=== PATIENT | male | born 1960 | race Caucasian/White ===

== ENCOUNTER 2020-04-08 10:49 | Emergency (ER) | payer OTHER, SELFPAY ==
--- NOTE | ~2020-04-08 | XR_ITS ---
XR lumbar spine min 4V 04/08/2020 11:29 Indication: Low back pain and numbness Procedure: 5 views of the lumbar spine Comparison: CT dated 01/09/2017 Findings: There is partial sacralization of L5. There is facet hypertrophy at L4-5 and L5-S1. There a re no acute fractures or traumatic malalignment. Pedicles intact. There are coils overlying the abdom en, likely from previous ventral hernia repair. Laparoscopic adjustable gastric band partially visual ized. Impression: 1: No acute abnormality of the lumbar spine. Reviewed, dictated and finalized at location A. 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
[2020-04-08 11:00] VITALS: BP 140/87; PULSE 75; RESP 20; TEMP 35.8; O2SAT 97
--- NOTE | 2020-04-08 11:00 | ED.BACK ---
HPI - Back Pain/Injury General Chief Complaint: Back Pain/Injury Stated Complaint: pain in right buttock Time Seen by Provider: 04/08/20 11:00 Source: patient and RN notes reviewed Mode of arrival: ambulatory Limitations: no limitations History of Present Illness HPI Narrative: 60 year old male who presents to [facility] care with complaints of pain to the right lower back radiating into his right thigh and down leg to ankle since the 08 of February. Patient states that on the weekend before then he put up [place] lights but symptoms did not start until 08 of February. He reports that he has had previous back problems and sciatica but was always on the left side never on his right. Patient states that he does have some numbness in his feet but that is related to his diabetic neuropathy,denies any saddle paraesthesia, no difficulty with bowels or bladder function. Patient states that pain is constant achy and at times is sharp, was diagnosed with degenerative arthritis in his back in 1991. Patient states that he takes Tramadol for his discomfort but that the medication is not cutting the pain. MD elicited complaint: back pain Pertinent past history: prior back pain, arthritis and other (DDD) Timing: constant Severity: severe Pain scale (0-10): 7 Similar Symptoms Previously: Yes Quality: sharp and aching Location: right lower back Radiation: right upper leg and right leg below the knee (to ankle) Exacerbating factors: movement Relieving factors: none Treatments prior to arrival: other (tramadol) Work related injury: No Related Data Home Medications Medication Instructions Recorded Confirmed aspirin 81 mg DAILY 04/08/20 04/08/20 chlorthalidone 25 mg DAILY 04/08/20 04/08/20 dulaglutide [Trulicity] mg SUBCUT 04/08/20 empagliflozin [Jardiance] 25 mg DAILY 04/08/20 04/08/20 lisinopril 40 mg DAILY 04/08/20 04/08/20 metformin 1,000 mg DAILY 04/08/20 04/08/20 omega-3 acid ethyl esters PO 04/08/20 omeprazole 04/08/20 simvastatin 40 mg DAILY 04/08/20 04/08/20 tramadol mg 04/08/20 Allergies Allergy/AdvReac Type Severity Reaction Status Date / Time No Known Allergies Allergy Unknown Verified 03/04/18 11:27 Review of Systems Review of Systems: Narrative: CONSTITUTIONAL: Denies fever, chills, or sweats. EYES: Denies visual changes, redness, or discharge. ENT: Denies rhinorrhea, congestion, sore throat, or otalgia. CARDIOVASCULAR: Denies chest pain, palpitations, or edema. RESPIRATORY: Denies cough or dyspnea. GASTROINTESTINAL: Denies abdominal pain, nausea, vomiting, or diarrhea. GENITOURINARY: Denies dysuria or hematuria. SKIN: Denies rash or itching. MUSCULOSKELETAL:Positive for right lower back pain which radiates down thigh into calf and to ankle,no other joint pain, or myalgia. NEUROLOGIC: Denies headache, diabetic neuropathy to feet with numbness, denies acute weakness PSYCHIATRIC: Denies anxiety or depression. All systems reviewed & are unremarkable except as noted in HPI and below PMFSH Past Medical History Medical History (Updated 04/08/20 @ 14:48 by Jeanette Martin NP) Diabetes mellitus type 2 in obese GERD (gastroesophageal reflux disease) History of sinus problem Hypertension Shingles Sleep apnea in adult wears cpap Surgical History Surgical History (Updated 04/08/20 @ 14:47 by Jeanette Martin NP) H/O oral surgery H/O umbilical hernia repair History of cholecystectomy History of sinus surgery History of weight loss surgery Lap band 2009 Family History Family History (Updated 04/08/20 @ 11:20 by Jeanette Martin NP) Father Heart disease Grandparent Heart disease Social History Social History (Updated 04/08/20 @ 11:21 by Jeanette Martin NP) Smoking status: Former smoker Smoking end date: 03/30/88 Alcohol intake: current Alcohol use details: seldom Substance use: never Living arrangements: with family Gender identity (if verbalized by the patient): Male Commen
== END 2020-04-08 12:00 | disposition home or self-care (01) ==
PROVIDERS: Emergency Provider Registered Nurse
DX: M54.16 Radiculopathy, lumbar region (principal); E11.9 Type 2 diabetes mellitus without complications; K21.9 Gastro-esophageal reflux disease without esophagitis; I10 Essential (primary) hypertension; G47.30 Sleep apnea, unspecified; Z87.891 Personal history of nicotine dependence
CPT/HCPCS: 72110; 99213; G0463

== ENCOUNTER 2020-04-17 11:06 | Emergency (ER) | payer OTHER, SELFPAY ==
[2020-04-17 11:21] VITALS: BP 137/85; PULSE 94; RESP 16; TEMP 36; O2SAT 96
--- NOTE | 2020-04-17 18:08 | ED.GENADULT ---
HPI - General Adult General Chief complaint: Back Pain/Injury Stated complaint: right hip pain Time Seen by Provider: 04/17/20 11:23 Source: patient Mode of arrival: ambulatory Limitations: no limitations History of Present Illness HPI narrative: Patient presents with chief complaint of low back pain that radiates down into his right buttock and at times radiates down his entire right leg. Patient states beginning approximately 10 days ago it became more intense. Patient states that he was seen at the urgent care where x-rays were performed and found to be negative. Patient states he was diagnosed with sciatica and prescribed cyclobenzaprine and [place]. Patient states that he has been taking the cyclobenzaprine and ibuprofen and of the [place] if needed. He states however that they have only minimally improved his discomfort and at times do not help. Patient states that he has diabetes however he keeps his blood sugars between 113 and 130. He denies any fever, chills, nausea, vomiting, trauma to his back, loss of sensation or motor function to his lower extremities. Patient states that he has an appointment with his primary care on Thursday. Related Data Home Medications Medication Instructions Recorded Confirmed aspirin 81 mg DAILY 04/08/20 04/08/20 chlorthalidone 25 mg DAILY 04/08/20 04/08/20 dulaglutide [Trulicity] mg SUBCUT 04/08/20 empagliflozin [Jardiance] 25 mg DAILY 04/08/20 04/08/20 lisinopril 40 mg DAILY 04/08/20 04/08/20 metformin 1,000 mg DAILY 04/08/20 04/08/20 omega-3 acid ethyl esters PO 04/08/20 omeprazole 04/08/20 simvastatin 40 mg DAILY 04/08/20 04/08/20 tramadol mg 04/08/20 Allergies Allergy/AdvReac Type Severity Reaction Status Date / Time No Known Allergies Allergy Unknown Verified 03/04/18 11:27 Review of Systems Review of Systems: Narrative: CONSTITUTIONAL: Denies fever, chills, or sweats. EYES: Denies visual changes, redness, or discharge. ENT: Denies rhinorrhea, congestion, sore throat, or otalgia. CARDIOVASCULAR: Denies chest pain, palpitations, or edema. RESPIRATORY: Denies cough or dyspnea. GASTROINTESTINAL: Denies abdominal pain, nausea, vomiting, or diarrhea. GENITOURINARY: Denies dysuria or hematuria. SKIN: Denies rash or itching. MUSCULOSKELETAL: Reports back pain with right leg radiation denies joint pain, or myalgia. NEUROLOGIC: Denies headache, numbness, dizziness, or weakness. PSYCHIATRIC: Denies anxiety or depression. [facility] Past Medical History Medical History (Updated 04/17/20 @ 12:05 by Darrius Pinto PA-C) Diabetes mellitus type 2 in obese GERD (gastroesophageal reflux disease) History of sinus problem Hypertension Shingles Sleep apnea in adult wears cpap Surgical History Surgical History (Updated 04/08/20 @ 14:47 by Jeanette Martin NP) H/O oral surgery H/O umbilical hernia repair History of cholecystectomy History of sinus surgery History of weight loss surgery Lap band 2010 Family History Family History (Updated 04/08/20 @ 11:20 by Jeanette Martin NP) Father Heart disease Grandparent Heart disease Social History Social History (Updated 04/08/20 @ 11:21 by Jeanette Martin NP) Smoking status: Former smoker Smoking end date: 03/30/88 Alcohol intake: current Substance use: never Gender identity (if verbalized by the patient): Male Exam Narrative: Exam Narrative: GENERAL: Well-appearing, well-nourished, and in no acute distress. HEAD: Normocephalic, atraumatic. EYES: PERRLA and EOMI. NECK: Supple. No adenopathy or masses. Range of motion intact CHEST: Clear to auscultation. No respiratory distress. No wheezes rales or rhonchi HEART: Regular rate and rhythm. BACK: No vertebral point tenderness. Pain with palpation of right gluteus/piriformis area. Sensation and strength intact to lower extremity. No saddle paresthesia. Gait intact. EXTREMITIES: Normal range of motion. No edema. SKIN: Warm, dry, no rash. NEURO: No focal def
== END 2020-04-17 12:34 | disposition home or self-care (01) ==
PROVIDERS: Emergency Provider Emergency Medicine
DX: M54.41 Lumbago with sciatica, right side (principal); Z79.82 Long term (current) use of aspirin; E11.9 Type 2 diabetes mellitus without complications; K21.9 Gastro-esophageal reflux disease without esophagitis; I10 Essential (primary) hypertension; G47.30 Sleep apnea, unspecified; Z79.84 Long term (current) use of oral hypoglycemic drugs; Z87.891 Personal history of nicotine dependence
CPT/HCPCS: 99283

== ENCOUNTER → 2020-07-31 01:42 | Outpatient (CLI) | payer OTHER, SELFPAY ==
[2020-07-31 19:24] LABS: SARS-CoV-2 RNA PCR Negative
== END ==
PROVIDERS: Visit Provider Internal Medicine Gastroenterology
DX: Z01.812 Encounter for preprocedural laboratory examination (principal); Z20.822 Contact with and (suspected) exposure to COVID-19
CPT/HCPCS: C9803; U0003; U0005

== ENCOUNTER 2020-08-03 01:54 | Day surgery (SDC) | payer OTHER, SELFPAY ==
[2020-07-26 13:14] VITALS: BMI 36.0
[2020-08-03 07:47] VITALS: BP 125/69; PULSE 77; RESP 18; TEMP 35.8; O2SAT 94; BMI 35.0
[2020-08-03] MEDS: LACTATED RINGERS 1,000 ML 150 ML IV CONT (07:59)
[2020-08-03 08:01] LABS: Glucose Point of Care 155 (65-105)
--- NOTE | 2020-08-03 08:24 | P.PNAN_ITS ---
Anes - Initial Pre Proc Eval Procedure: Operation Date: 08/03/20 09:00 Proposed Procedures p Screening Colonoscopy - Anurag Bowen MD Date/Time: 08/03/20 08:24 Surgeon: Anurag Bowen MD Pre Op Diagnosis: neoplasm screening Patient Data Age: 60 Gender: M Height: 5 ft 10 in Weight: 110.9 kg Last Vital Signs Temp 35.8 C L 08/03/20 07:47 Pulse 77 08/03/20 07:47 Resp 18 08/03/20 07:47 BP 125/69 08/03/20 07:47 Pulse Ox 94 08/03/20 07:47 Allergies Allergy/AdvReac Type Severity Reaction Status Date / Time No Known Allergies Allergy Verified 08/03/20 07:45 Home Medications Medication Instructions Recorded Confirmed Type ascorbic acid (vitamin C) 1 g PO DAILY 07/26/20 08/03/20 History aspirin 81 mg PO HS 07/26/20 08/03/20 History chlorthalidone 25 mg PO HS 07/26/20 08/03/20 History dulaglutide [Trulicity] 1.5 mg SUBCUT WEEKLY 07/26/20 08/03/20 History empagliflozin [Jardiance] 25 mg PO DAILY 07/26/20 08/03/20 History lisinopril 40 mg PO HS 07/26/20 08/03/20 History metformin 1,000 mg PO BID 07/26/20 08/03/20 History rxhvrafxbptc-wefvvoeg-zhdasp 1 tablet PO DAILY 07/26/20 08/03/20 History [Centrum Silver] omega-3 acid ethyl esters 4 g PO HS 07/26/20 08/03/20 History omeprazole 20 mg PO HS 07/26/20 08/03/20 History potassium 198 mg PO DAILY 07/26/20 08/03/20 History simvastatin 40 mg PO HS 07/26/20 08/03/20 History tramadol 150 mg PO BID 07/26/20 08/03/20 History Laboratory Tests 08/03/20 07:58 POC Capillary Glucose 155 mg/dl H mg/dl (65-105) Patient hx anesthesia problems: none Family hx anesthesia problems: none PMFSH Past Medical History Medical History Diabetes Hyperlipidemia Hypertension Neuropathy LESLYE (obstructive sleep apnea) Social History Social History Smoking packs per day: 1 Smoking cigarettes per day: 20.0 Years smoked: 8 Smoking pack-years: 8.00 Smoking status: Former smoker Tobacco type: cigarettes Alcohol intake: never Substance use: never Substance use type: does not use Living arrangements: with family Spiritual care concerns: No Anes - Eval Final PreProcedure Day of Procedure 08/03/20 08:24 Patient weight: obese Heart: regular rate and rhythm Lungs: clear to auscultation Airway: Mallampati scale class II Neurological: alert and oriented Last oral intake: >/= 8 hours ASA classification: III Emergent: no Anesthetic plan: proceed Anesthesia type and monitoring: general GIVS and standard monitoring Informed Consent: The patient's anesthetic plan and its attendant risks and vickie efits were discussed with the patient/family/POA. Questions were solicited and answers provided to the satisfaction of the patient/family/POA.
--- NOTE | 2020-08-03 08:41 | PM.HPGS ---
History of Present Illness History of Present Illness Consent: Risks, benefits, and alternatives have been discussed and questions answered. Patient agrees to proceed with procedure. Chief complaint: neoplasm screening Narrative: Govind Renner III is a 60 year old male here for screening colonoscopy, last one 10 years ago. Review of Systems Constitutional: Constitutional: Denies headache(s) and Denies weakness Eyes: Eyes: Denies blurry vision ENT: Reports Normal hearing present, Denies headache(s) and Denies neck pain Cardiovascular: Cardiovascular: Denies chest pain and Denies dyspnea Respiratory: Respiratory: Denies dyspnea Gastrointestinal: Gastrointestinal: Reports no additional gastrointestinal complaints Genitourinary: Genitourinary: Denies dysuria Musculoskeletal: Musculoskeletal: Denies neck pain Integumentary/Breasts: Skin/Breast: Denies dry skin Neurologic: Reports Normal hearing present, Denies headache(s) and Denies weakness Psychiatric: Psychiatric: Denies anxiety Endocrine: Endocrine: Denies change in body appearance Hematologic/Lymphatic: Hematologic/Lymphatic: Denies easy bleeding Allergic/Immunologic: Allergic/Immunologic: Denies urticaria PMFSH Past Medical History Medical History (Updated 08/03/20 @ 08:42 by Anurag Bowen MD) Colon cancer screening Diabetes Hyperlipidemia Hypertension Neuropathy LESLYE (obstructive sleep apnea) Social History Social History Smoking packs per day: 1 Smoking cigarettes per day: 20.0 Years smoked: 8 Smoking pack-years: 8.00 Smoking status: Former smoker Tobacco type: cigarettes Alcohol intake: never Substance use: never Substance use type: does not use Living arrangements: with family Spiritual care concerns: No Meds Home Medications and Allergies Home Medications Medication Instructions Recorded Confirmed Type ascorbic acid (vitamin C) 1 g PO DAILY 07/26/20 08/03/20 History aspirin 81 mg PO HS 07/26/20 08/03/20 History chlorthalidone 25 mg PO HS 07/26/20 08/03/20 History dulaglutide [Trulicity] 1.5 mg SUBCUT WEEKLY 07/26/20 08/03/20 History empagliflozin [Jardiance] 25 mg PO DAILY 07/26/20 08/03/20 History lisinopril 40 mg PO HS 07/26/20 08/03/20 History metformin 1,000 mg PO BID 07/26/20 08/03/20 History piirnjjrjypw-mpekgjal-ndsigq 1 tablet PO DAILY 07/26/20 08/03/20 History [Centrum Silver] omega-3 acid ethyl esters 4 g PO HS 07/26/20 08/03/20 History omeprazole 20 mg PO HS 07/26/20 08/03/20 History potassium 198 mg PO DAILY 07/26/20 08/03/20 History simvastatin 40 mg PO HS 07/26/20 08/03/20 History tramadol 150 mg PO BID 07/26/20 08/03/20 History Allergies Allergy/AdvReac Type Severity Reaction Status Date / Time No Known Allergies Allergy Verified 08/03/20 07:45 Vital Signs Vital Signs - 24 hr 08/03/20 07:47 Temperature 96.4 F L Pulse Rate 77 Respiratory Rate 18 Blood Pressure 125/69 Pulse Oximetry 94 Exam Const: General: comfortable and no acute distress HENMT: General nose exam: Normal nares present Eyes: General: appearance normal, both eyes and all related structures Neck: Neck: no JVD Resp: Auscultation: clear to auscultation bilaterally Cardio: Rate: regular rate Rhythm: regular rhythm GI: Inspection: non-distended GI Palp: Yes Soft to palpation Skin: General skin exam: normal color Neuro: General: gait normal Speech: normal speech Extrem: General: normal to inspection Psych: Mental Status: mental status grossly normal Assessment and Plan Assessment and plan (1) Colon cancer screening: Code(s): Z12.11 - Encounter for screening for malignant neoplasm of colon Status: Acute Assessment and Plan: colonoscopy
[2020-08-03 09:02] VITALS: BP 105/70; PULSE 72; RESP 22; O2SAT 94
[2020-08-03 09:12] VITALS: BP 104/70; PULSE 69; RESP 18; O2SAT 95
[2020-08-03 09:22] VITALS: BP 138/78; PULSE 70; RESP 18; O2SAT 96
== END 2020-08-03 09:30 | disposition home or self-care (01) ==
PROVIDERS: Visit Provider Internal Medicine Gastroenterology
PROC: 0DJD8ZZ Inspection of Lower Intestinal Tract, Via Natural or Artificial Opening Endoscopic (ICD-10-PCS; CPT 45378; principal; 2020-08-03 09:00)
DX: Z12.11 Encounter for screening for malignant neoplasm of colon (principal); D12.8 Benign neoplasm of rectum; K57.30 Diverticulosis of large intestine without perforation or abscess without bleeding; K64.8 Other hemorrhoids; I10 Essential (primary) hypertension; E78.5 Hyperlipidemia, unspecified; E11.40 Type 2 diabetes mellitus with diabetic neuropathy, unspecified; G47.33 Obstructive sleep apnea (adult) (pediatric); Z79.84 Long term (current) use of oral hypoglycemic drugs; Z79.82 Long term (current) use of aspirin; Z87.891 Personal history of nicotine dependence; E66.9 Obesity, unspecified; Z68.35 Body mass index [BMI] 35.0-35.9, adult
CPT/HCPCS: 45385; 82948; 88305; J2704; J7120

== ENCOUNTER 2020-08-26 10:08 | Emergency (ER) | payer OTHER, SELFPAY ==
[2020-08-26 10:22] VITALS: BP 133/77; PULSE 90; RESP 20; TEMP 36.6; O2SAT 99
--- NOTE | 2020-08-26 10:22 | ED.SKABFB ---
HPI - Skin/Abscess/Foreign Bdy General Chief complaint: Skin/Abscess/Foreign Body Stated complaint: cellulitis of the nose Time Seen by Provider: 08/26/20 10:20 Source: patient Mode of arrival: ambulatory Limitations: no limitations History of Present Illness HPI narrative: Govind Renner is a 60 yo male with a PMH of diabetes, HTN, high cholesterol, [facility] with a recurrent cellulitis of the right nares. He has longstanding issue with skin infections of the nostrils and has been under the care of his PCP with routine use of Bactroban since 2013. Has had 2 occurrences where he is required additional oral antibiotics since that time. States that infection starts to make his eyes watering he has pain that runs from the nostril to the right eye; this is almost intolerable to wear his CPAP machine. Started 2 days ago Related Data Home Medications Medication Instructions Recorded Confirmed aspirin 81 mg DAILY 04/08/20 08/26/20 chlorthalidone 25 mg DAILY 04/08/20 08/26/20 empagliflozin [Jardiance] 25 mg DAILY 04/08/20 08/26/20 lisinopril 40 mg DAILY 04/08/20 08/26/20 metformin 1,000 mg DAILY 04/08/20 08/26/20 omega-3 acid ethyl esters 1 g PO DAILY 04/08/20 08/26/20 omeprazole 20 mg DAILY 04/08/20 08/26/20 simvastatin 40 mg DAILY 04/08/20 08/26/20 tramadol 50 mg BID 04/08/20 08/26/20 dulaglutide [Trulicity] 1.5 mg SUBCUT WEEKLY 08/26/20 08/26/20 Allergies Allergy/AdvReac Type Severity Reaction Status Date / Time No Known Allergies Allergy Unknown Verified 03/04/18 11:27 Review of Systems Review of Systems: Narrative: CONSTITUTIONAL: Denies fever, chills, sweats. EYES: Denies visual changes, redness, discharge. ENT: Denies rhinorrhea, congestion, sore throat, otalgia. CARDIOVASCULAR: Denies chest pain, palpitations, edema. RESPIRATORY: Denies dyspnea, wheezing, cough GASTROINTESTINAL: Denies abdominal pain, nausea, vomiting, diarrhea. GENITOURINARY: Denies dysuria, hematuria, abnormal discharge SKIN: Denies rash or itching. Reddening and pain of right nares that extends up to the right eye NEUROLOGIC: Denies numbness, or focal weakness. PSYCHIATRIC: Denies anxiety or depression. [facility] Past Medical History Medical History Diabetes mellitus type 2 in obese GERD (gastroesophageal reflux disease) History of sinus problem Hypertension Shingles Sleep apnea in adult wears cpap Surgical History Surgical History H/O oral surgery H/O umbilical hernia repair History of cholecystectomy History of sinus surgery History of weight loss surgery Lap band 2009 Family History Family History Father Heart disease Grandparent Heart disease Social History Social History Smoking status: Former smoker Smoking end date: 03/30/88 Alcohol intake: current Substance use: never Gender identity (if verbalized by the patient): Male Comments At time of signature, I agree with nursing past medical, surgical, social and family history. There is no relevant family history pertinent to the presenting complaint. Exam Narrative: Exam Narrative: GENERAL: This is a well-nourished, well-developed patient, in mild distress. HEAD: normocephalic, atraumatic. EYES: Sclera clear/white. Vision is grossly intact. EARS: External ears normal, auditory canals clear and without drainage, TMs normal without perforation. Hearing grossly intact. NOSE: External nose normal without nasal discharge, nares with redness, mild edema and a few vesicles that appear to be pus filled along infected soft tissue, right eyelid starting to water and appears to grimace with while talking because he is states that movement increases the pain THROAT: Mucous membranes moist, NECK: Neck supple, non-tender CARDIOVASCULAR: Regular
== END 2020-08-26 10:36 | disposition home or self-care (01) ==
PROVIDERS: Emergency Provider Nurse Practitioner
DX: J34.0 Abscess, furuncle and carbuncle of nose (principal); Z87.891 Personal history of nicotine dependence; E11.9 Type 2 diabetes mellitus without complications; K21.9 Gastro-esophageal reflux disease without esophagitis; I10 Essential (primary) hypertension; G47.30 Sleep apnea, unspecified
CPT/HCPCS: 99213; G0463

== ENCOUNTER 2020-10-28 12:11 | Emergency (ER) | payer OTHER, SELFPAY ==
[2020-10-28 12:24] VITALS: BP 117/75; PULSE 94; RESP 20; TEMP 36.3; O2SAT 98
--- NOTE | 2020-10-28 12:36 | ED.URI ---
HPI - URI/Sore Throat General Chief Complaint: Upper Respiratory Infection Stated Complaint: Headache,Chills Time Seen by Provider: 10/28/20 12:36 Source: patient and RN notes reviewed Mode of arrival: ambulatory Limitations: no limitations History of Present Illness HPI Narrative: 60-year-old male presents with concern for headache, sweats, chills, diarrhea, body aches, decreased energy. Reports symptoms started yesterday. Reports shortness of breath that started today. Reports he has been vaccinated for Covid, denies any known sick contacts. He denies cough, nasal congestion, reports rhinorrhea. He reports he took ibuprofen with no relief. MD elicited complaint: other (headache, fatigue) Related Data Home Medications Medication Instructions Recorded Confirmed aspirin 81 mg DAILY 04/08/20 08/26/20 chlorthalidone 25 mg DAILY 04/08/20 08/26/20 empagliflozin [Jardiance] 25 mg DAILY 04/08/20 08/26/20 lisinopril 40 mg DAILY 04/08/20 08/26/20 metformin 1,000 mg DAILY 04/08/20 08/26/20 omega-3 acid ethyl esters 1 g PO DAILY 04/08/20 08/26/20 omeprazole 20 mg DAILY 04/08/20 08/26/20 simvastatin 40 mg DAILY 04/08/20 08/26/20 dulaglutide [Trulicity] 1.5 mg SUBCUT WEEKLY 08/26/20 08/26/20 duloxetine mg PO 10/28/20 loratadine mg 10/28/20 Allergies Allergy/AdvReac Type Severity Reaction Status Date / Time pregabalin [From Lyrica] Allergy Unknown Verified 10/28/20 12:33 Review of Systems Review of Systems: CONSTITUTIONAL: Reports malaise, chills, sweats, fatigue. Denies fever. EYES: Denies visual changes, redness, or discharge. ENT: Denies rhinorrhea. Denies congestion, sinus pain, otalgia or sore throat. CARDIOVASCULAR: Denies chest pain, palpitations, or edema. RESPIRATORY: Denies cough. Reports dyspnea. GASTROINTESTINAL: Denies abdominal pain, nausea, vomiting, diarrhea, bloody, or mucous stools. GENITOURINARY: Denies dysuria or hematuria. SKIN: Denies rash or itching. MUSCULOSKELETAL: Reports myalgia. NEUROLOGIC: Reports headache. PSYCHIATRIC: Denies anxiety or depression. All systems reviewed & are unremarkable except as noted in HPI and below PMFSH Past Medical History Medical History Diabetes mellitus type 2 in obese GERD (gastroesophageal reflux disease) History of sinus problem Hypertension Shingles Sleep apnea in adult wears cpap Surgical History Surgical History H/O oral surgery H/O umbilical hernia repair History of cholecystectomy History of sinus surgery History of weight loss surgery Lap band 2009 Family History Family History Father Heart disease Grandparent Heart disease Social History Social History Smoking status: Former smoker Smoking end date: 03/30/88 Alcohol intake: current Alcohol use details: seldom Substance use: never Gender identity (if verbalized by the patient): Male Comments At time of signature, agree with nursing past medical, surgical, social and family history. There is no relevant family history pertinent to the presenting complaint Exam Narrative: GENERAL: Well-appearing, well-nourished, and in no acute distress. HEAD: Normocephalic, atraumatic. EYES: PERRLA, conjunctivae clear ENT: Nares clear. Mucous membranes moist. TM pearly rodriguez with sharp light reflex bilaterally; no tragal tenderness. Oropharynx without erythema or lesions. Tonsils not enlarged and without exudate. NECK: Supple. No lymphadenopathy. CHEST: No respiratory distress. Clear to auscultation. No bony deformities, no asymmetry. Speaks in full sentences. HEART: Regular rate and rhythm. No murmur heard. Normal peripheral pulses. SKIN: Warm, dry, no rash. NEURO: Alert and oriented x3. PSYCH: Normal mood and affect Course Course Emergency Course: Patient is aware
[2020-10-29 13:59] LABS: SARS-CoV-2 RNA PCR Negative
== END 2020-10-28 12:57 | disposition home or self-care (01) ==
PROVIDERS: Emergency Provider Nurse Practitioner
DX: B34.9 Viral infection, unspecified (principal); Z20.822 Contact with and (suspected) exposure to COVID-19; E11.9 Type 2 diabetes mellitus without complications; K21.9 Gastro-esophageal reflux disease without esophagitis; I10 Essential (primary) hypertension; G47.30 Sleep apnea, unspecified; E66.9 Obesity, unspecified; Z68.34 Body mass index [BMI] 34.0-34.9, adult
CPT/HCPCS: 87426; 99213; C9803; G0463; U0003; U0005

== ENCOUNTER 2021-02-17 16:03 | Emergency (ER) | payer OTHER, SELFPAY ==
--- NOTE | 2021-02-17 16:10 | ED.SKABFB ---
HPI - Skin/Abscess/Foreign Bdy General Chief complaint: Wound/Laceration Stated complaint: Abdominal Abscess Time Seen by Provider: 02/17/21 16:10 Source: patient and RN notes reviewed Mode of arrival: ambulatory Limitations: no limitations History of Present Illness HPI narrative: 60-year-old male presents with concern for area of redness, swelling, tenderness on his abdomen. Reports it started off as a small pimple-like area that has gotten larger and more tender over the last several days. Denies drainage. Denies fever, body aches. MD complaint: abscess/boil Related Data Home Medications Medication Instructions Recorded Confirmed aspirin 81 mg DAILY 04/08/20 08/26/20 chlorthalidone 25 mg DAILY 04/08/20 08/26/20 empagliflozin [Jardiance] 25 mg DAILY 04/08/20 08/26/20 lisinopril 40 mg DAILY 04/08/20 08/26/20 metformin 1,000 mg DAILY 04/08/20 08/26/20 omega-3 acid ethyl esters 1 g PO DAILY 04/08/20 08/26/20 omeprazole 20 mg DAILY 04/08/20 08/26/20 simvastatin 40 mg DAILY 04/08/20 08/26/20 dulaglutide [Trulicity] 1.5 mg SUBCUT WEEKLY 08/26/20 08/26/20 duloxetine mg PO 10/28/20 loratadine mg 10/28/20 Allergies Allergy/AdvReac Type Severity Reaction Status Date / Time pregabalin [From Lyrica] Allergy Unknown Verified 02/17/21 16:14 Review of Systems Review of Systems: CONSTITUTIONAL: Denies malaise, chills, sweats, or fever. SKIN: Reports red, tender, raised area on the abdomen MUSCULOSKELETAL: Denies myalgia. All systems reviewed & are unremarkable except as noted in HPI and below PMFSH Past Medical History Medical History Diabetes mellitus type 2 in obese GERD (gastroesophageal reflux disease) History of sinus problem Hypertension Shingles Sleep apnea in adult wears cpap Surgical History Surgical History H/O oral surgery H/O umbilical hernia repair History of cholecystectomy History of sinus surgery History of weight loss surgery Lap band 2009 Family History Family History Father Heart disease Grandparent Heart disease Social History Social History Smoking status: Former smoker Smoking end date: 03/30/88 Alcohol intake: current Alcohol use details: seldom Substance use: never Gender identity (if verbalized by the patient): Male Comments At time of signature, agree with nursing past medical, surgical, social and family history. There is no relevant family history pertinent to the presenting complaint Exam Narrative: GENERAL: Well-appearing, well-nourished, and in no acute distress. HEAD: Normocephalic, atraumatic. EYES: PERRLA, conjunctivae clear ENT: Mucous membranes moist. NECK: Supple. No lymphadenopathy CHEST: Clear to auscultation. No respiratory distress. HEART: Regular rate and rhythm. SKIN: Warm, dry. 8 cm diameter area of erythema, induration, edema with fluctuance noted to the mid lower abdomen consistent with abscess NEURO: Alert and oriented x3. PSYCH: Normal mood and affect Course Course Emergency Course: Patient is aware of diagnosis, understands and agrees to treatment plan. Anticipatory guidance given. Patient agrees to follow-up as directed and is aware of reasons to seek care at the emergency department. Portions of this record may have been created with voice recognition software Vital Signs Vital signs: Reviewed. Procedures Abscess I/D abdomen: Date of Incision: 02/17/21 Time of Incision: 16:39 Local Anesthetic: lidocaine 1% Amount of anesthesia used (mL): 3 Technique: incised with #11 blade Amount of fluid expressed (mL): 3 Irrigation: Yes Packing used?: iodoform I&D Results: Pus MDM - Skin/Abscess/Foreign Bdy MDM Narrative Medical decision making narrative: Verb
[2021-02-17 16:14] VITALS: BP 124/77; PULSE 94; RESP 20; TEMP 36.4; O2SAT 97
== END 2021-02-17 17:16 | disposition home or self-care (01) ==
PROVIDERS: Emergency Provider Nurse Practitioner
DX: L02.211 Cutaneous abscess of abdominal wall (principal); Z87.891 Personal history of nicotine dependence; E11.8 Type 2 diabetes mellitus with unspecified complications; Z79.84 Long term (current) use of oral hypoglycemic drugs; K21.9 Gastro-esophageal reflux disease without esophagitis; G47.30 Sleep apnea, unspecified; I10 Essential (primary) hypertension
CPT/HCPCS: 10061; 99213; G0463

== ENCOUNTER 2021-12-01 12:44 | Observation (INO) | payer OTHER, SELFPAY ==
[2021-12-01] VITALS (51 sets, daily range): BP systolic 122–153; BP diastolic 70–129; PULSE 64–79; RESP 11–22; TEMP 36.6–36.9; O2SAT 92–99; BMI 35.6
--- NOTE | ~2021-12-01 | XR_ITS ---
EXAMINATION: XR chest 2V DATE: 12/01/2021 13:07 INDICATION: Chest pain. TECHNIQUE: Frontal and lateral views of the chest were obtained. COMPARISON: Chest 2 views 02/18/2015, chest CT 02/18/2015 FINDINGS: There is no pneumonia, pleural effusion, or pneumothorax. The heart size is normal. IMPRESSION: 1. No acute cardiopulmonary disease. Reviewed, dictated and finalized at location A.
--- NOTE | ~2021-12-01 | CT_ITS ---
EXAMINATION: CTA chest PE protocol DATE: 12/01/2021 14:05 INDICATION: Dyspnea. Chest pain. TECHNIQUE: Computed tomography angiography (CTA) of the chest was performed with 100 mL Omnipaque-350 intravenous contrast timed to evaluate the pulmonary arteries. Coronal maximum intensity projection 3D-reconstructions were created by the technologist. Automated exposure control and iterative reconst ruction technique were employed. The dose-length product was 964.34 mGy-cm. COMPARISON: Chest CT 02/18/2015 FINDINGS: The lungs demonstrate mild atelectasis. No pleural effusion. Cardiomegaly is noted. No jocelyn cardial effusion. There is no pulmonary embolus. There is a lap band in expected position. There is a 2.0 cm cyst in the liver. There are changes of cholecystectomy. There is mild thoracic spondylosis. IMPRESSION: 1. No pulmonary embolus. Reviewed, dictated and finalized at location A. IMPRESSION: 1. No pulmonary embolus.
--- NOTE | 2021-12-01 12:45 | ECG_ITS ---
Measurements Intervals [place] Rate: 76 P: 75 MI: 160 QRS: -13 QRSD: 96 T: -1 QT: 364 QTc: 409 Interpretive Statements SINUS RHYTHM EARLY PRECORDIAL R/S TRANSITION BASELINE ARTIFACT- II, III, AVR, AVL, AVF BORDERLINE ECG NO PREVIOUS ECG AVAILABLE FOR COMPARISON Electronically Signed On 12-01-2021 14:02:43 CDT by Asad Grimaldo D.O.
[2021-12-01 13:03] LABS: Basophils Absolute Auto 0.1 K/mm3 (0.0-0.1); Basophils Percent Auto 0.8 % (0.2-1.2); Eosinophils Absolute Auto 0.1 K/mm3 (0-0.3); Eosinophils Percent Auto 1.7 % (0-4.4); Hematocrit 44.7 % (42.0-52.0); Immature Granulocyte Absolute 0.02 K/mm3 (0.00-0.031); Immature Granulocyte Percent A 0.2 % (0-0.5); Lymphocytes Absolute Auto 1.68 K/mm3 (0.9-3.2); Lymphocytes Percent Auto 19.9 % (18.3-44.2); Mean Corpuscular HGB Conc 33.6 g/dl (32-36); Mean Corpuscular Hemoglobin 27.5 pg (26-34); Mean Platelet Volume 9.8 fl (7.4-10.4); Monocytes Absolute Auto 0.8 K/mm3 (0.1-0.6); Monocytes Percent Auto 8.9 % (2.6-8.5); Neutrophils Absolute Auto 5.8 K/mm3 (1.3-6.7); Neutrophils Percent Auto 68.5 % (45.5-73.1); Platelet Count Result 220 k/mm3 (150-375); Red Blood Count 5.45 M/mm3 (4.6-6.20); Red Cell Distribution Width 14.6 % (11.5-14.5); White Blood Count 8.4 K/mm3 (4.5-10.0)
[2021-12-01] MEDS: ASPIRIN 81 MG CHEWABLE TABLET 324 MG PO (13:09)
[2021-12-01 13:15] LABS: Prothrombin Time 12.5 Seconds (11.1-14.7)
[2021-12-01 13:16] LABS: Alanine Aminotransferase 65 U/L (6-50); Albumin Level 4.7 g/dL (3.5-5.1); Alkaline Phosphatase 79 U/L (38-126); Anion Gap 12 mmol/L (8-16); Aspartate Amino Transferase 39 U/L (17-59); Bilirubin,Total 1.5 mg/dL (0.2-1.3); Blood Urea Nitrogen 17 mg/dL (9-20); Calcium 9.9 mg/dL (8.4-10.2); Carbon Dioxide 30 mmol/L (22-30); Chloride 100 mmol/L (98-107); Estimated CRCL calculation 79 ml/min; Estimated Glomerular Filt Rate > 60; Glucose 132 mg/dL (65-110); Lipase 160 U/L (23-300); Potassium 3.1 mmol/L (3.4-5.0); Sodium 142 mmol/L (137-145)
[2021-12-01 13:28] LABS: Troponin I < 0.012 ng/mL (0.000-0.034)
[2021-12-01] MEDS: KETOROLAC 30 MG/ML VIAL (*BKC) IV PUSH (13:32)
--- NOTE | 2021-12-01 13:53 | ED.CHESTPAIN ---
HPI - Chest Pain General Chief Complaint: Chest Pain Stated Complaint: chest pain Time Seen by Provider: 12/01/21 12:52 Source: RN notes reviewed History of Present Illness HPI narrative: Patient presents emergency room from home for chest pain. Patient states pain began approximately 20 minutes prior to arrival the pain is located over the midsternal chest and described as sharp and stabbing with pain radiating through to the back. Patient states he is seen his desk and the pain began he does note mild shortness of breath so that states the pain is improved at this time but is still present he denies any previous cardiac disease he denies any fevers or chills abdominal pain nausea or vomiting Related Data Home Medications Medication Instructions Recorded Confirmed aspirin 81 mg tablet,delayed 81 mg DAILY 04/08/20 02/17/21 release chlorthalidone 25 mg tablet 25 mg DAILY 04/08/20 02/17/21 empagliflozin 25 mg tablet 25 mg DAILY 04/08/20 02/17/21 (Jardiance) lisinopril 40 mg tablet 40 mg DAILY 04/08/20 02/17/21 metformin 1,000 mg tablet 1,000 mg DAILY 04/08/20 02/17/21 omeprazole 20 mg capsule,delayed 20 mg DAILY 04/08/20 02/17/21 release simvastatin 40 mg tablet 40 mg DAILY 04/08/20 02/17/21 ascorbic acid (vitamin C) 1,000 mg 1 g PO DAILY 07/26/20 08/03/20 tablet aspirin 81 mg tablet,delayed 81 mg PO HS 07/26/20 08/03/20 release chlorthalidone 25 mg tablet 25 mg PO HS 07/26/20 08/03/20 dulaglutide 1.5 mg/0.5 mL 1.5 mg subcut WEEKLY 07/26/20 08/03/20 subcutaneous pen injector (Trulicity) empagliflozin 25 mg tablet 25 mg PO DAILY 07/26/20 08/03/20 (Jardiance) lisinopril 40 mg tablet 40 mg PO HS 07/26/20 08/03/20 metformin 1,000 mg tablet 1,000 mg PO BID 07/26/20 08/03/20 guywzessffyn-qqkwyuph-lwqjfx tablet 1 tablet PO DAILY 07/26/20 08/03/20 omega-3 acid ethyl esters 1 gram 4 g PO HS 07/26/20 08/03/20 capsule omeprazole 20 mg capsule,delayed 20 mg PO HS 07/26/20 08/03/20 release potassium 99 mg tablet 198 mg PO DAILY 07/26/20 08/03/20 simvastatin 40 mg tablet 40 mg PO HS 07/26/20 08/03/20 tramadol 50 mg tablet 150 mg PO BID 07/26/20 08/03/20 dulaglutide 1.5 mg/0.5 mL 1.5 mg subcut WEEKLY 08/26/20 02/17/21 subcutaneous pen injector (Trulicity) duloxetine 30 mg capsule,delayed 30 mg PO DAILY 10/28/20 02/17/21 release lancets 28 gauge (FreeStyle 02/17/21 02/17/21 Lancets) omega-3 acid ethyl esters 1 gram 1 g PO DAILY 02/17/21 02/17/21 capsule (Lovaza) potassium 99 mg tablet 99 mg PO BID 02/17/21 02/17/21 tramadol 50 mg tablet 300 mg PO DAILY 02/17/21 02/17/21 Allergies Allergy/AdvReac Type Severity Reaction Status Date / Time pregabalin [From Lyrica] Allergy Unknown Verified 12/01/21 14:15 Review of Systems Review of Systems: Gen.: Denies fevers or chills ENT: Denies congestion Respiratory: Reports mild shortness of breath with pain CV: See HPI GI: Denies abdominal pain nausea, emesis or diarrhea Musculoskeletal: Denies back pain or muscle pain Neuro: Denies numbness, tingling, weakness or focal weakness Skin: Denies rash Except as documented, all other systems reviewed and negative [facility] Past Medical History Medical History Colon cancer screening Diabetes Diabetes mellitus type 2 in obese GERD (gastroesophageal reflux disease) History of sinus problem Hyperlipidemia Hypertension Hypertension Neuropathy LESLYE (obstructive sleep apnea) Shingles Sleep apnea in adult wears cpap Surgical History Surgical History H/O oral surgery H/O umbilical hernia repair History of cholecystectomy History of sinus surgery History of weight loss surgery Lap band 2009 Family History Family History Father Heart disease Grandparent Heart disease Social History Social History (Reviewed 12/01/21 @ 16:38 by Sim
[2021-12-01 16:27] LABS: Troponin I < 0.012 ng/mL (0.000-0.034)
--- NOTE | 2021-12-01 16:50 | PM.IMHP ---
H&P: HPI History of Present Illness Date/Time: 12/01/21 16:50 Chief Complaint: Chest pain. Narrative: This is a pleasant 61-year-old male former smoker with hypertension, hyperlipidemia, and type 2 diabetes mellitus who presented to the ED from home for evaluation of chest pain. Approximately 15 minutes prior to arrival he developed the sudden onset of sharp and shooting midchest pain radiating through to the back associated with diaphoresis, dizziness, and mild shortness of breath. It seemed to be worse when leaning forward and it improved with IV ketorolac. He has never had severe symptoms like this in the past. He has GERD but that is well controlled on medication and this pain today is not at all similar to that he would experience with indigestion. At the time my evaluation he is without chest discomfort. On arrival to the emergency department his vital signs were stable. His initial troponin was negative and his EKG was reviewed and shows no acute ST segment changes. Pertinent labs include a normal WBC, sodium 142, potassium 3.1, total bilirubin 1.5, AST 39, ALT 65, and lipase of 160. CTA of the chest was negative for pulmonary embolism. He is being admitted in this setting for close monitoring and to rule out acute coronary syndrome. Review of Systems Review of Systems: Twelve systems were reviewed. No fever. He had sweats with episode earlier today as above. No recent cold or flu symptoms. He denies cough. No pleuritic pain or palpitations. He felt dizzy and lightheaded at the onset of the symptoms but he denies syncope and near syncope. No abdominal or epigastric pain. He denies bloating and belching. His diabetes has been well controlled with an A1c of less than 7% over the last year or so. Except as documented, all other systems were reviewed and are negative. [facility] Past Medical History Medical History (Updated 12/01/21 @ 17:05 by Kajal Mcneill PA-C) Hyperlipidemia Hypertension Neuropathy Obstructive sleep apnea on CPAP Shingles Type 2 diabetes mellitus Surgical History Surgical History (Updated 12/01/21 @ 17:14 by Kajal Mcneill PA-C) History of colonoscopy History of laparoscopic adjustable gastric banding (2009) History of laparoscopic cholecystectomy (05/2003) History of sinus surgery (1981) History of umbilical hernia repair (03/2008) History of wisdom tooth extraction (1984) Status post trigger finger release Family History Family History Father Heart disease Grandparent Heart disease Social History Social History (Updated 12/01/21 @ 21:42 by Kajal Mcneill PA-C) Social History: Surrogate medical decision maker: Jacqueline Renner, spouse. Code status: Full code. Smoking packs per day: 1 Smoking cigarettes per day: 20.0 Years smoked: 8 Smoking pack-years: 8.00 Smoking status: Former smoker Tobacco type: cigarettes Smoking end date: 03/30/88 Alcohol intake: never Alcohol use details: Rare alcohol use. Substance use: never Substance use type: does not use Additional living arrangements comments: Lives in [place] with . Additional occupation/education comments: Works in [employer] at [employer]. Spiritual care concerns: No Meds Home Medications and Allergies Home Medications Medication Instructions Recorded Confirmed Type ascorbic acid (vitamin C) 1,000 mg 1,000 mg PO DAILY 12/01/21 12/01/21 History tablet chlorthalidone 25 mg tablet 25 mg PO HS 12/01/21 12/01/21 History dulaglutide 1.5 mg/0.5 mL 1.5 mg subcut WEEKLY 12/01/21 12/01/21 History subcutaneous pen injector (Trulicity) empagliflozin 25 mg tablet 25 mg PO DAILY 12/01/21 12/01/21 History (Jardiance) escitalopram oxalate 10 mg tablet 10 mg PO HS 12/01/21 12/01/21 History ferrous sulfate 325 mg (65 mg See Rx Instructions .Route .COMPLEX 12/01/21 12/01/21 History iron) tablet (FeroSul) lisinopril
[2021-12-01] MEDS: POTASSIUM CHLORIDE 20 MEQ TABLET 40 MEQ PO (17:01)
--- NOTE | 2021-12-01 18:26 | PC.NURSE ---
This patient, Govind Renner III, was admitted to IMU Room 204-01. Patient/family oriented to hospital policies and general routines including ID bracelet, bed and alarms, visiting hours, pain management, procedures, bathroom and other care routines, personal items, smoking policy, room service/diet, and visiting hours. Information on how to activate the Rapid Response Team has been discussed. Patient/Family are encouraged to report perceived risks to care and to ask questions if they do not understand what they are told or what they should do.
[2021-12-01 20:59] LABS: Troponin I < 0.012 ng/mL (0.000-0.034)
[2021-12-01] MEDS: OMEGA 3 POLYUNSAT FATTY ACIDS 1 GM CAP 4 GM PO (23:04)
[2021-12-01] MEDS: PANTOPRAZOLE 40 MG TABLET PO (23:04)
[2021-12-02] VITALS (7 sets, daily range): BP systolic 123–130; BP diastolic 67–73; PULSE 59–70; RESP 14–20; TEMP 36.5–36.6; O2SAT 95–99
[2021-12-02 04:44] LABS: Basophils Absolute Auto 0.1 K/mm3 (0.0-0.1); Basophils Percent Auto 0.9 % (0.2-1.2); Eosinophils Absolute Auto 0.2 K/mm3 (0-0.3); Eosinophils Percent Auto 2.6 % (0-4.4); Hematocrit 40.8 % (42.0-52.0); Hemoglobin 13.6 g/dL (14.0-18.0); Immature Granulocyte Absolute 0.03 K/mm3 (0.00-0.031); Immature Granulocyte Percent A 0.4 % (0-0.5); Mean Corpuscular HGB Conc 33.3 g/dl (32-36); Mean Corpuscular Hemoglobin 27.6 pg (26-34); Mean Corpuscular Volume 82.9 fl (80-100); Monocytes Absolute Auto 0.6 K/mm3 (0.1-0.6); Monocytes Percent Auto 7.8 % (2.6-8.5); Neutrophils Absolute Auto 4.8 K/mm3 (1.3-6.7); Neutrophils Percent Auto 68.3 % (45.5-73.1); Platelet Count Result 167 k/mm3 (150-375); Red Blood Count 4.92 M/mm3 (4.6-6.20); Red Cell Distribution Width 14.6 % (11.5-14.5)
[2021-12-02 05:02] LABS: Alanine Aminotransferase 58 U/L (6-50); Albumin Level 3.8 g/dL (3.5-5.1); Alkaline Phosphatase 72 U/L (38-126); Anion Gap 10 mmol/L (8-16); Aspartate Amino Transferase 36 U/L (17-59); Bilirubin,Total 1.7 mg/dL (0.2-1.3); Blood Urea Nitrogen 21 mg/dL (9-20); Calcium 8.9 mg/dL (8.4-10.2); Carbon Dioxide 29 mmol/L (22-30); Chloride 99 mmol/L (98-107); Estimated CRCL calculation 79 ml/min; Estimated Glomerular Filt Rate > 60; Glucose 135 mg/dL (65-110); Magnesium 1.7 mg/dL (1.6-2.3); Potassium 2.9 mmol/L (3.4-5.0); Sodium 138 mmol/L (137-145)
[2021-12-02] MEDS: POTASSIUM CHLORIDE 20 MEQ TABLET 80 MEQ PO (05:44)
[2021-12-02] MEDS: MAGNESIUM SULF 2 GM/WATER 50ML 2 GM/50 ML BAG IVPB (05:44)
--- NOTE | 2021-12-02 09:06 | PM.CNCAR ---
Assessment and Plan Assessment and plan (1) Chest pain: Code(s): R07.9 - Chest pain, unspecified Status: Acute Plan This is a 61-year-old gentleman presenting yesterday to the emergency department with chest pain. The history of this symptom is highly atypical of and not suggestive of myocardial ischemia. Obviously he has coronary risk factors. He has been ruled out for acute coronary syndrome and in my opinion is a good candidate for discharge at this time. I will not plan on following him in my office as he has medical care established at [facility]. He does not have a separate cardiac problem that would require ongoing follow-up as an outpatient Kei Mclean MD [facility] History of Present Illness History of Present Illness Consult date/time: 12/02/21 09:06 Reason For Visit: chest pain Narrative: This is a 61-year-old gentleman I am seeing at the request of the hospitalist after he was admitted through the emergency room last evening because of chest pain. He was in his usual state of health when he was at home working on his computer and suddenly noticed the onset of some chest pain while he was sitting there. He describes a relatively sharp severe right precordial pain that then radiated into the interscapular region of his back. The discomfort was unassociated with any shortness of breath nausea or vomiting. He did have some diaphoresis. The discomfort waxed and waned in intensity at times it was mild at times it was rather severe. He came upstairs from his basement and reported these symptoms to his and had her take him to the hospital in their car. In the emergency room he was evaluated with chest CT which was apparently negative. His electrocardiogram does not show any significant abnormalities. He was given an injection of Toradol. Following that he has not had any more symptoms. He describes that when this was going on he did notice that in the standing or upright position the pain would worsen and it would be alleviated by lying in the supine position. He has had 3 sets of troponin levels which are unremarkable. He feels well this morning and denies any complaints. Past medical history is remarkable for hypertension, non insulin-dependent diabetes and dyslipidemia. He reports that his medical problems are managed by position it has [facility] and they are under good control to the best of his knowledge. Review of Systems Constitutional: Constitutional: Reports no additional constitutional complaints Eyes: Eyes: Reports no additional eye complaints ENT: Reports system reviewed and no additional complaints, except as documented Cardiovascular: Cardiovascular: Reports as per HPI Respiratory: Respiratory: Reports no additional respiratory complaints Gastrointestinal: Gastrointestinal: Reports no additional gastrointestinal complaints Musculoskeletal: Musculoskeletal: Reports back pain Integumentary/Breasts: Skin/Breast: Reports system reviewed and no additional complaints, except as docu Neurologic: Reports as per HPI Comments: Patient has some peripheral neuropathy related to his diabetes Endocrine: Endocrine: Reports no additional endocrine complaints Hematologic/Lymphatic: Hematologic/Lymphatic: Reports no additional hematologic/lymphatic complaints Allergic/Immunologic: Allergic/Immunologic: Reports no additional allergic/immunologic complaints [facility] Past Medical History Medical History (Updated 12/01/21 @ 17:05 by Kajal Mcneill PA-C) Hyperlipidemia Hypertension Neuropathy Obstructive sleep apnea on CPAP Shingles Type 2 diabetes mellitus Surgical History Surgical History (Updated 12/01/21 @ 17:14 by Kajal Mcneill PA-C) History of colonoscopy History of laparoscopic adjustable gastric banding (2009) History of laparoscopic cholecystectomy (05/2003) History of sinus surgery (1981) History of umbilical hernia repair (03/2008) History of
[2021-12-02] MEDS: POTASSIUM CHLORIDE 10 MEQ TABLET.ER PO (09:08)
[2021-12-02] MEDS: EMPAGLIFLOZIN 25 MG TABLET PO (09:09)
[2021-12-02] MEDS: MULTIVITAMINS THERAPEUTIC TAB (*BKC) 1 TABLET PO (09:09)
[2021-12-02] MEDS: ENOXAPARIN 40 MG/0.4 ML SYRINGE SUB-Q (09:09)
[2021-12-02] MEDS: ASCORBIC ACID 500 MG TABLET 1000 MG PO (09:09)
[2021-12-02] MEDS: traMADol HCL (*CRX) 50 MG TABLET 150 MG PO (09:11)
--- NOTE | 2021-12-02 11:35 | PM.DS ---
DS: Admitting Diagnosis Discharge Date December 02, 2021 Admitting Diagnosis Chest pain DS: Discharge Diagnosis Discharge Diagnosis (1) Chest pain: Code(s): R07.9 - Chest pain, unspecified Status: Acute Assessment and Plan: Now resolved. Cardiology consult obtained and no further workup needed (2) Hypertension: Code(s): I10 - Essential (primary) hypertension Status: Acute Assessment and Plan: Continue home meds (3) Hypokalemia: Code(s): E87.6 - Hypokalemia Status: Acute Assessment and Plan: Follow-up as an outpatient with his primary. (4) Type 2 diabetes mellitus: Code(s): E11.9 - Type 2 diabetes mellitus without complications Status: Acute Assessment and Plan: Continue home meds on discharge (5) Obstructive sleep apnea on CPAP: Code(s): G47.33 - Obstructive sleep apnea (adult) (pediatric); Z99.89 - Dependence on other enabling machines and devices Status: Acute Assessment and Plan: CPAP will be provided for the patient to use while hospitalized. (6) Elevated blood pressure reading: Code(s): R03.0 - Elevated blood-pressure reading, without diagnosis of hypertension Status: Acute DS: Summary Hospital Course Hospital Course: Patient was admitted for chest pain. Cardiology evaluated the patient and recommended no intervention. No cardiac issues are no cardiac follow-up per the public safety police. Follow up with his primary care physician. Continue home meds Time Spent with Patient Time attestation: Total time spent providing and/or coordinating discharge services: Exam Narrative: General: Well-developed male sitting at the side of the bed in no distress. Weight: 112.5 kg. BMI: 35.6. HEENT: PERRL, EOMI. Sclera anicteric. Oral mucosa moist. Oropharynx clear. Neck: Supple. No JVD or carotid bruits. Respiratory: Lungs are clear to auscultation bilaterally. Cardiovascular: Regular rate and rhythm with S1-S2. Chest: No tenderness to palpation over the chest wall. Gastrointestinal: Abdomen is soft, protuberant, nontender, and nondistended with positive bowel sounds. Skin: Warm and dry. No rash or lesions on limited exam. Extremities: No cyanosis, clubbing, or edema. Radial and pedal pulses intact. Neurological: Alert. Cranial nerves 2-12 are grossly intact. No gross focal deficits to casual conversation. Psychiatric: Pleasant and cooperative with normal mood and affect. Judgment and insight intact. DS: Data Data Completed and Pending Labs on day of discharge: Labs from last 24 hours 12/02/21 12/02/21 12/02/21 04:10 04:10 04:10 WBC 7.0 RBC 4.92 Hgb 13.6 L Hct 40.8 L MCV 82.9 MCH 27.6 MCHC 33.3 RDW 14.6 H Plt Count 167 MPV 10.0 Immature Gran % (Auto) 0.4 Neut % (Auto) 68.3 Lymph % (Auto) 20.0 [place] % (Auto) 7.8 Eos % (Auto) 2.6 Baso % (Auto) 0.9 Lymph # (Auto) 1.40 [place] # (Auto) 0.6 Eos # (Auto) 0.2 Baso # (Auto) 0.1 Abs Immat Gran (auto) 0.03 Absolute Neuts (auto) 4.8 Absolute Nucleated RBC 0.0 Nucleated RBC % 0.0 PT INR APTT Sodium 138 Potassium 2.9 L Chloride 99 Carbon Dioxide 29 Anion Gap 10 BUN 21 H Creatinine 1.10 Estim Creat Clear Calc 79 Estimated GFR > 60 Glucose 135 H Calcium 8.9 Magnesium 1.7 Total Bilirubin 1.7 H AST 36 ALT 58 H Alkaline Phosphatase 72 Troponin I Total Protein 7.0 Albumin 3.8 Lipase TSH (Reflex) 2.100 12/01/21 12/01/21 12/01/21 20:31 15:57 12:52 WBC RBC Hgb Hct MCV MCH MCHC RDW Plt Count MPV Immature Gran % (Auto) Neut % (Auto) Lymph % (Auto) [place] % (Auto) Eos % (Auto) Baso % (Auto) Lymph # (Auto) [place] # (Auto) Eos # (Auto) Baso # (Auto) Abs Immat Gran (auto) Absolute Neuts (auto) Absolute Nuclea
--- NOTE | 2021-12-02 21:48 | ECHO_ITS ---
Patient Info Name: Govind Renner Age: 61 years : 1960 Gender: Male Ht: 70 in Wt: 248 lbs BSA: 2.40 m2 HR: 69 bpm BP: 123 / 67 mmHg Technical Quality: Fair Exam Date: 12/02/2021 9:50 AM Exam Location: [facility] Pulmonary Exam Room: [facility] Patient Status: Inpatient Admit Date: 12/01/2021 Staff Ordering Physician: Kajal Mcneill PA-C Human Resources Operations Manager: Melonie Sullivan RDCS Attending Provider: Mayelin Pardo DO Referring Physician: Osito MENDOSA; Exam Type: CA echo doppler color flow Study Info Indications - chest pain cardiomegaly htn Complete two-dimensional, color flow and Doppler transthoracic echocardiogram is performed. Summary 1. Complete two-dimensional, color flow and Doppler transthoracic echocardiogram is performed. 2. Normal LV size and wall thickness, normal LV systolic and diastolic function, ejection fraction about 65-70%. Normal mitral valve structure, no significant MR. Normal aortic valve structure, no hemodynamically significant stenosis, trivial aortic regurgitation. Trace TR, RVSP 32 mmHg. Mild pulmonic regurgitation. Sinus rhythm. Left Ventricle Left ventricular chamber dimension is normal. Left ventricular systolic function is normal, estimated at 65-70%. There is no increased left ventricular wall thickness. The left ventricular diastolic function is normal. Right Ventricle Right ventricular chamber dimension is normal. Right ventricular systolic function is normal. Left Atria Left atrial chamber dimension is normal. Right Atria Right atrial chamber dimension is normal. Aortic Valve The aortic valve is normal. There is no aortic valve stenosis. There is trace aortic valve regurgitation. Pulmonic Valve The pulmonic valve is normal. There is mild pulmonic regurgitation. Mitral Valve The mitral valve has normal leaflets. There is no mitral valve stenosis. There is no mitral valve regurgitation. Tricuspid Valve The tricuspid valve leaflets are normal. There is trace tricuspid valve regurgitation. No pulmonary hypertension, estimated pulmonary arterial systolic pressure is 32 mmHg. Pericardium/Pleural The pericardium appears normal. There is no pericardial effusion. Inferior Vena Cava Normal inferior vena cava with >50% collapse upon inspiration consistent with normal right atrial pressure, 10 mmHg. Aorta The aortic root size at the sinus of Valsalva is normal. The prox ascending aorta size is normal. Left Ventricular Outflow Tract Name Value Normal LVOT 2D LVOT Diameter 2.1 cm LVOT Doppler LVOT Peak Gradient 4 mmHg LVOT Mean Gradient 2 mmHg LVOT VTI 20 cm LVOT VTI/AV VTI Ratio 0.9 LVOT Stroke Volume 69 ml LVOT CO 13.9 l/min LVOT CI 5.8 l/min/m2 Pulmonic Valve Name Value Normal
== END 2021-12-02 12:35 | disposition home or self-care (01) ==
LOC: ANHED 16:58 → ANHIMU 18:08
PROVIDERS: Physician Assistant; Admitting Provider Student in an Organized Health Care Education/Training Program; Emergency Provider Emergency Medicine; Visit Provider Chiropractor
DX: R07.9 Chest pain, unspecified (principal); I10 Essential (primary) hypertension; E87.6 Hypokalemia; G47.33 Obstructive sleep apnea (adult) (pediatric); Z99.89 Dependence on other enabling machines and devices; E11.42 Type 2 diabetes mellitus with diabetic polyneuropathy; R06.02 Shortness of breath; R03.0 Elevated blood-pressure reading, without diagnosis of hypertension; R42 Dizziness and giddiness; E78.5 Hyperlipidemia, unspecified; K21.9 Gastro-esophageal reflux disease without esophagitis; R61 Generalized hyperhidrosis; E66.9 Obesity, unspecified; Z68.36 Body mass index [BMI] 36.0-36.9, adult; I37.1 Nonrheumatic pulmonary valve insufficiency; Z87.891 Personal history of nicotine dependence; Z79.891 Long term (current) use of opiate analgesic; Z79.84 Long term (current) use of oral hypoglycemic drugs; Z79.82 Long term (current) use of aspirin; Z79.899 Other long term (current) drug therapy; Z82.49 Family history of ischemic heart disease and other diseases of the circulatory system
CPT/HCPCS: 36415; 71046; 71275; 80053; 83690; 83735; 84443; 84484; 85025; 85610; 85730; 93005; 93306; 96365; 96372; 96374; 99285; A9270; G0378; J1650; J1885; J3475; Q9967

== ENCOUNTER 2021-12-29 11:58 | Emergency (ER) | payer OTHER, SELFPAY ==
[2021-12-29 12:25] VITALS: BP 119/72; PULSE 109; RESP 20; TEMP 36.4; O2SAT 98
--- NOTE | 2021-12-29 14:20 | ED.GENADULT ---
HPI - General Adult General Chief complaint: Skin/Abscess/Foreign Body Stated complaint: cyst History of Present Illness HPI narrative: Patient is a 61-year-old male who presents to the express care via POV accompanied by spouse for an evaluation of a skin problem located on left buttocks that began approximately 1 week ago. Additionally, patient reports his symptoms of chills, headache, and increased thirst began 6 days ago. Left buttock pain, pressure, erythema, and drainage started Morgan. Increased drainage started yesterday. He reports no improvement after his attempted to express contents of abscess. Relief with ibuprofen. touching area increases tenderness. Related Data Home Medications Medication Instructions Recorded Confirmed ascorbic acid (vitamin C) 1,000 mg 1,000 mg PO DAILY 12/01/21 12/29/21 tablet chlorthalidone 25 mg tablet 25 mg PO HS 12/01/21 12/29/21 dulaglutide 1.5 mg/0.5 mL 1.5 mg subcut WEEKLY 12/01/21 12/29/21 subcutaneous pen injector (Trulicity) empagliflozin 25 mg tablet 25 mg PO DAILY 12/01/21 12/29/21 (Jardiance) escitalopram oxalate 10 mg tablet 10 mg PO HS 12/01/21 12/29/21 ferrous sulfate 325 mg (65 mg See Rx Instructions .Route .COMPLEX 12/01/21 12/29/21 iron) tablet (FeroSul) lisinopril 40 mg tablet 40 mg PO HS 12/01/21 12/29/21 metformin 1,000 mg tablet 100 mg PO BID 12/01/21 12/29/21 multivitamin 1 tablet PO DAILY 12/01/21 12/29/21 omeprazole 20 mg capsule,delayed 20 mg PO HS 12/01/21 12/29/21 release tramadol 50 mg tablet 150 mg PO BID 12/01/21 12/29/21 aspirin 81 mg tablet,delayed 81 mg DAILY 12/29/21 12/29/21 release loratadine 10 mg tablet 10 mg PO DAILY 12/29/21 12/29/21 omega-3 acid ethyl esters 1 gram 1 cap PO DAILY 12/29/21 12/29/21 capsule (Lovaza) rosuvastatin 20 mg tablet 20 mg DAILY 12/29/21 12/29/21 Allergies Allergy/AdvReac Type Severity Reaction Status Date / Time pregabalin [From Lyrica] Allergy Unknown Verified 12/29/21 14:57 duloxetine [From Cymbalta] AdvReac Insomnia Verified 12/29/21 14:57 Review of Systems Review of Systems: denies injury. Pertinent negatives fever, chills, sweats, poor p.o. intake, change in appetite, LOC, dizziness, streaking, numbness, tingling, loss of sensation, foreign body sensation, deformity, abd pain, nausea, vomiting, constipation, diarrhea, sob, chest pain, and heart palpitations/murmurs. [facility] Past Medical History Medical History Hyperlipidemia Hypertension Neuropathy Obstructive sleep apnea on CPAP Shingles Type 2 diabetes mellitus Surgical History Surgical History History of colonoscopy History of laparoscopic adjustable gastric banding (2009) History of laparoscopic cholecystectomy (05/2003) History of sinus surgery (1981) History of umbilical hernia repair (03/2008) History of wisdom tooth extraction (1984) Status post trigger finger release Family History Family History Father Heart disease Grandparent Heart disease Social History Social History Social History: Surrogate medical decision maker: Jacqueline Renner, spouse. Code status: Full code. Smoking packs per day: 1 Smoking cigarettes per day: 20.0 Years smoked: 8 Smoking pack-years: 8.00 Smoking status: Former smoker Tobacco type: cigarettes Smoking end date: 03/30/88 Alcohol intake: never Alcohol use details: Rare alcohol use. Substance use: never Substance use type: does not use Additional living arrangements comments: Lives in [place] with . Additional occupation/education comments: Works in [employer] at [employer]. Spiritual care concerns: No Comments I have reviewed and agree with the patient's past medical, surgical, social, and fam
== END 2021-12-29 14:21 | disposition short-term general hospital (02) ==
PROVIDERS: Emergency Provider Nurse Practitioner Family
DX: L02.31 Cutaneous abscess of buttock (principal); L03.317 Cellulitis of buttock; Z87.891 Personal history of nicotine dependence; E78.5 Hyperlipidemia, unspecified; I10 Essential (primary) hypertension; E11.40 Type 2 diabetes mellitus with diabetic neuropathy, unspecified; G47.33 Obstructive sleep apnea (adult) (pediatric); Z98.84 Bariatric surgery status
CPT/HCPCS: 94640; 99213; G0463

== ENCOUNTER 2021-12-29 14:45 | Emergency (ER) | payer OTHER, SELFPAY ==
[2021-12-29] VITALS (26 sets, daily range): BP systolic 92–120; BP diastolic 46–68; PULSE 80–97; RESP 16–27; TEMP 36.8; O2SAT 97
[2021-12-29] MEDS: SODIUM CHLORIDE 0.9% IV 1,000 ML 999 ML IV CONT (15:08)
[2021-12-29 15:19] LABS: Basophils Absolute Auto 0.1 K/mm3 (0.0-0.1); Basophils Percent Auto 0.4 % (0.2-1.2); Eosinophils Absolute Auto 0.2 K/mm3 (0-0.3); Eosinophils Percent Auto 0.9 % (0-4.4); Hematocrit 39.7 % (42.0-52.0); Hemoglobin 13.7 g/dL (14.0-18.0); Immature Granulocyte Absolute 0.09 K/mm3 (0.00-0.031); Immature Granulocyte Percent A 0.6 % (0-0.5); Lymphocytes Absolute Auto 1.16 K/mm3 (0.9-3.2); Lymphocytes Percent Auto 7.2 % (18.3-44.2); Mean Corpuscular HGB Conc 34.5 g/dl (32-36); Mean Corpuscular Hemoglobin 28.2 pg (26-34); Mean Corpuscular Volume 81.9 fl (80-100); Mean Platelet Volume 9.7 fl (7.4-10.4); Monocytes Absolute Auto 1.6 K/mm3 (0.1-0.6); Monocytes Percent Auto 9.7 % (2.6-8.5); Neutrophils Percent Auto 81.2 % (45.5-73.1); Platelet Count Result 216 k/mm3 (150-375); Red Blood Count 4.85 M/mm3 (4.6-6.20); Red Cell Distribution Width 14.1 % (11.5-14.5)
--- NOTE | 2021-12-29 16:13 | ED.WOUNDLAC ---
HPI - Wound/Laceration General Chief Complaint: Wound/Laceration Stated Complaint: abcess to buttocks, Time Seen by Provider: 12/29/21 14:53 History of Present Illness HPI narrative: Patient is a 61-year-old male who presents ER with left buttock pain. Worsening over the last 6 days. Began spontaneously draining today. Aching pain that is 1/10 at rest. It does have increased pain if he sits directly on it. No fevers or chills or sweats. Has had increased thirst. Patient is a diabetic but has had a normal A1c. No difficulty with defecation. No pain in the groin or swelling of the genitals. Related Data Home Medications Medication Instructions Recorded Confirmed ascorbic acid (vitamin C) 1,000 mg 1,000 mg PO DAILY 12/01/21 12/29/21 tablet chlorthalidone 25 mg tablet 25 mg PO HS 12/01/21 12/29/21 dulaglutide 1.5 mg/0.5 mL 1.5 mg subcut WEEKLY 12/01/21 12/29/21 subcutaneous pen injector (Trulicity) empagliflozin 25 mg tablet 25 mg PO DAILY 12/01/21 12/29/21 (Jardiance) escitalopram oxalate 10 mg tablet 10 mg PO HS 12/01/21 12/29/21 ferrous sulfate 325 mg (65 mg See Rx Instructions .Route .COMPLEX 12/01/21 12/29/21 iron) tablet (FeroSul) lisinopril 40 mg tablet 40 mg PO HS 12/01/21 12/29/21 metformin 1,000 mg tablet 100 mg PO BID 12/01/21 12/29/21 multivitamin 1 tablet PO DAILY 12/01/21 12/29/21 omeprazole 20 mg capsule,delayed 20 mg PO HS 12/01/21 12/29/21 release tramadol 50 mg tablet 150 mg PO BID 12/01/21 12/29/21 aspirin 81 mg tablet,delayed 81 mg DAILY 12/29/21 12/29/21 release loratadine 10 mg tablet 10 mg PO DAILY 12/29/21 12/29/21 omega-3 acid ethyl esters 1 gram 1 cap PO DAILY 12/29/21 12/29/21 capsule (Lovaza) rosuvastatin 20 mg tablet 20 mg DAILY 12/29/21 12/29/21 Allergies Allergy/AdvReac Type Severity Reaction Status Date / Time pregabalin [From Lyrica] Allergy Unknown Verified 12/29/21 14:57 duloxetine [From Cymbalta] AdvReac Insomnia Verified 12/29/21 14:57 Review of Systems Review of Systems: All systems reviewed & are unremarkable except as noted in HPI and below Constitutional: Constitutional: Denies chills, Reports fatigue and Denies fever(s) ENT: Denies nasal congestion and Denies sore throat Cardiovascular: Cardiovascular: Denies chest pain, Denies rapid heart rate and Denies radiating jaw, neck or arm pain Respiratory: Respiratory: Denies cough and Denies dyspnea Gastrointestinal: Gastrointestinal: Denies abdominal pain, Denies constipation, Denies nausea and Denies vomiting Integumentary/Breasts: Skin/Breast: Reports erythema, Denies rash and Denies skin ulcer Comments: Buttock abscess PMFSH Past Medical History Medical History Hyperlipidemia Hypertension Neuropathy Obstructive sleep apnea on CPAP Shingles Type 2 diabetes mellitus Surgical History Surgical History History of colonoscopy History of laparoscopic adjustable gastric banding (2009) History of laparoscopic cholecystectomy (05/2003) History of sinus surgery (1981) History of umbilical hernia repair (03/2008) History of wisdom tooth extraction (1984) Status post trigger finger release Family History Family History Father Heart disease Grandparent Heart disease Social History Social History Social History: Surrogate medical decision maker: Jacqueline Jorgecarlos, spouse. Code status: Full code. Smoking packs per day: 1 Smoking cigarettes per day: 20.0 Years smoked: 8 Smoking pack-years: 8.00 Smoking status: Former smoker Tobacco type: cigarettes Smoking end date: 03/30/88 Alcohol intake: never Alcohol use details: Rare alcohol use. Substance use: never Substance use type: does not use Additional living arrangements comments: Lives in [place]
[2021-12-29 16:57] LABS: Alanine Aminotransferase 34 U/L (6-50); Albumin Level 4.1 g/dL (3.5-5.1); Alkaline Phosphatase 94 U/L (38-126); Anion Gap 12 mmol/L (8-16); Aspartate Amino Transferase 25 U/L (17-59); Bilirubin,Total 1.3 mg/dL (0.2-1.3); Blood Urea Nitrogen 16 mg/dL (9-20); Calcium 8.8 mg/dL (8.4-10.2); Carbon Dioxide 29 mmol/L (22-30); Chloride 96 mmol/L (98-107); Estimated CRCL calculation 97 ml/min; Estimated Glomerular Filt Rate > 60; Glucose 138 mg/dL (65-110); Potassium 3.1 mmol/L (3.4-5.0); Sodium 137 mmol/L (137-145)
[2021-12-29] MEDS: SULFAMETHOXAZOLE/TRIMETHOPRIM 800/160 MG DS TABLET 1 TAB (18:17)
== END 2021-12-29 18:30 | disposition home or self-care (01) ==
PROVIDERS: Emergency Provider Emergency Medicine
DX: L02.31 Cutaneous abscess of buttock (principal); E78.5 Hyperlipidemia, unspecified; I10 Essential (primary) hypertension; E11.40 Type 2 diabetes mellitus with diabetic neuropathy, unspecified; G47.33 Obstructive sleep apnea (adult) (pediatric); Z87.891 Personal history of nicotine dependence; Z79.84 Long term (current) use of oral hypoglycemic drugs; Z79.82 Long term (current) use of aspirin
CPT/HCPCS: 10061; 36415; 80053; 83605; 85025; 96360; 96361; 99283; A9270; J7030

== ENCOUNTER 2022-01-09 15:25 | Emergency (ER) | payer OTHER, SELFPAY ==
--- NOTE | ~2022-01-09 | CT_ITS ---
EXAMINATION: CT brain wo con INDICATION: Head injury and headache COMPARISON: 04/15/2012 TECHNIQUE: Standard unenhanced head CT. The dose-length product (DLP) was 605.33 mGy-cm. The mA was a djusted according to patient size. Iterative reconstruction technique was employed. FINDINGS: There is no intracranial hemorrhage, acute infarction, or abnormal mass lesion. The ventric les are normal. There is no abnormal mass effect or midline shift. The rodriguez-white matter differentiat ion is normal. The basal cisterns are patent. The orbits are normal. The paranasal sinuses, mastoids and calvarium are normal. IMPRESSION: 1. No acute intracranial abnormality. Reviewed, dictated and finalized at location F.
--- NOTE | ~2022-01-09 | XR_ITS ---
EXAMINATION: XR chest 2V DATE: 01/09/2022 16:13 INDICATION: Weakness. TECHNIQUE: Frontal and lateral views of the chest were obtained. COMPARISON: Chest 2 views 12/01/2021, chest CT 12/01/2021 FINDINGS: There is no pneumonia, pleural effusion, or pneumothorax. The heart size is normal. There i s a lap band in expected position. IMPRESSION: 1. No acute cardiopulmonary disease. Reviewed, dictated and finalized at location A.
[2022-01-09 15:49] VITALS: BP 125/75; PULSE 87; RESP 14; TEMP 36.4; O2SAT 97
--- NOTE | 2022-01-09 15:54 | ECG_ITS ---
Measurements Intervals [place] Rate: 80 P: 69 DE: 166 QRS: -20 QRSD: 93 T: -13 QT: 356 QTc: 412 Interpretive Statements SINUS RHYTHM MINIMAL VOLTAGE CRITERIA FOR LVH, CONSIDER NORMAL VARIANT [MEETS CRITERIA IN ONE OF: R(aVL), S(V1), R(V5), R(V5/V6)+S(V1)] COMPARED TO ECG 12/01/2021 12:50:50 NO SIGNIFICANT CHANGES Electronically Signed On 01-09-2022 18:39:46 CDT by Haydee Vaca M.D.
[2022-01-09 16:09] LABS: Basophils Percent Auto 0.5 % (0.2-1.2); Eosinophils Absolute Auto 0.1 K/mm3 (0-0.3); Eosinophils Percent Auto 1.4 % (0-4.4); Hematocrit 42.8 % (42.0-52.0); Hemoglobin 14.3 g/dL (14.0-18.0); Immature Granulocyte Absolute 0.02 K/mm3 (0.00-0.031); Immature Granulocyte Percent A 0.2 % (0-0.5); Lymphocytes Absolute Auto 1.55 K/mm3 (0.9-3.2); Lymphocytes Percent Auto 18.7 % (18.3-44.2); Mean Corpuscular HGB Conc 33.4 g/dl (32-36); Mean Corpuscular Hemoglobin 27.8 pg (26-34); Mean Corpuscular Volume 83.3 fl (80-100); Mean Platelet Volume 9.4 fl (7.4-10.4); Monocytes Absolute Auto 0.5 K/mm3 (0.1-0.6); Monocytes Percent Auto 6.5 % (2.6-8.5); Neutrophils Percent Auto 72.7 % (45.5-73.1); Platelet Count Result 237 k/mm3 (150-375); Red Blood Count 5.14 M/mm3 (4.6-6.20); White Blood Count 8.3 K/mm3 (4.5-10.0)
[2022-01-09 16:21] LABS: Alanine Aminotransferase 52 U/L (6-50); Albumin Level 4.6 g/dL (3.5-5.1); Alkaline Phosphatase 79 U/L (38-126); Anion Gap 12 mmol/L (8-16); Aspartate Amino Transferase 39 U/L (17-59); Bilirubin,Total 1.1 mg/dL (0.2-1.3); Blood Urea Nitrogen 26 mg/dL (9-20); Calcium 9.7 mg/dL (8.4-10.2); Carbon Dioxide 28 mmol/L (22-30); Chloride 100 mmol/L (98-107); Estimated CRCL calculation 77 ml/min; Estimated Glomerular Filt Rate > 60; Glucose 126 mg/dL (65-110); Potassium 3.4 mmol/L (3.4-5.0); Sodium 140 mmol/L (137-145)
[2022-01-09 16:47] LABS: Add Urine Microscopic? YES; Appearance Urine Clear (Clear); Bilirubin Urine Negative (Negative); Blood Urine Negative (Negative); Color Urine Yellow (Yellow); Glucose Urine UA 3+ mg/dL (Negative); Ketones Urine Negative (Negative); Leukocyte Esterase Ur Negative LEU/UL (Negative); Mucus Urine Rare /lpf; Nitrate Urine Negative (Negative); Protein Urine Negative (Negative); RBC Urine 0-2 /hpf (0-2); Specific Grav Ur 1.027 (1.001-1.035); Urobilinogen Urine Negative mg/dL (<2.0); WBC Urine 0-3 /hpf
[2022-01-09 18:20] VITALS: BP 130/77; O2SAT 96
[2022-01-09] MEDS: ONDANSETRON INJ 4 MG/2 ML VIAL IV PUSH (18:31)
[2022-01-09] MEDS: SODIUM CHLORIDE 0.9% IV 1,000 ML 999 ML IV CONT (18:32)
[2022-01-09 19:00] LABS: SARS-CoV-2 RNA PCR Negative
[2022-01-09] MEDS: MECLIZINE HCL 25 MG TABLET PO (19:28)
--- NOTE | 2022-01-09 19:29 | ED.SKABFB ---
HPI - Skin/Abscess/Foreign Bdy General Chief complaint: Skin/Abscess/Foreign Body Stated complaint: infection from cyst? Time Seen by Provider: 01/09/22 17:30 Source: patient and RN notes reviewed Mode of arrival: ambulatory Limitations: no limitations History of Present Illness HPI narrative: This is a 61 year old male who presents for evaluation of headache, fatigue and dizziness. He states he was recently treated for a left buttock abscess 11 days ago. He had an incision and drainage performed in ER at that visit and he was discharged on oral antibiotics. He states he feels better and his left buttock wound has healed. He is not had a pain or drainage. He also denies fever or chills. He is here today because he has felt fatigue and tired for 2 days. He also reports throbbing headache to top of his head. He has taken ibuprofen without resolution of his headache. He states that he did hit his head on his boat on Thursday but it did not cause any wounds. He denies nausea, vomiting , rectal pain, cough, chest pain or shortness of breath. His blood sugars have been mildly elevated. Related Data Home Medications Medication Instructions Recorded Confirmed ascorbic acid (vitamin C) 1,000 mg 1,000 mg PO DAILY 12/01/21 12/29/21 tablet chlorthalidone 25 mg tablet 25 mg PO HS 12/01/21 12/29/21 dulaglutide 1.5 mg/0.5 mL 1.5 mg subcut WEEKLY 12/01/21 12/29/21 subcutaneous pen injector (Trulicity) empagliflozin 25 mg tablet 25 mg PO DAILY 12/01/21 12/29/21 (Jardiance) escitalopram oxalate 10 mg tablet 10 mg PO HS 12/01/21 12/29/21 ferrous sulfate 325 mg (65 mg See Rx Instructions .Route .COMPLEX 12/01/21 12/29/21 iron) tablet (FeroSul) lisinopril 40 mg tablet 40 mg PO HS 12/01/21 12/29/21 metformin 1,000 mg tablet 100 mg PO BID 12/01/21 12/29/21 multivitamin 1 tablet PO DAILY 12/01/21 12/29/21 omeprazole 20 mg capsule,delayed 20 mg PO HS 12/01/21 12/29/21 release tramadol 50 mg tablet 150 mg PO BID 12/01/21 12/29/21 aspirin 81 mg tablet,delayed 81 mg DAILY 12/29/21 12/29/21 release loratadine 10 mg tablet 10 mg PO DAILY 12/29/21 12/29/21 omega-3 acid ethyl esters 1 gram 1 cap PO DAILY 12/29/21 12/29/21 capsule (Lovaza) rosuvastatin 20 mg tablet 20 mg DAILY 12/29/21 12/29/21 Allergies Allergy/AdvReac Type Severity Reaction Status Date / Time pregabalin [From Lyrica] Allergy Unknown Verified 12/29/21 14:57 duloxetine [From Cymbalta] AdvReac Insomnia Verified 12/29/21 14:57 Review of Systems Review of Systems: All systems reviewed & are unremarkable except as noted in HPI and below Constitutional: Constitutional: Reports fatigue and Denies weakness Eyes: Eyes: Denies change in vision ENT: Reports vertigo, Reports dizziness, Denies nasal congestion and Denies sore throat Cardiovascular: Cardiovascular: Denies chest pain and Denies radiating jaw, neck or arm pain Respiratory: Respiratory: Denies chest congestion, Denies cough and Denies dyspnea Gastrointestinal: Gastrointestinal: Denies abdominal pain, Denies nausea and Denies vomiting Neurologic: Reports headache(s) PMFSH Past Medical History Medical History Hyperlipidemia Hypertension Neuropathy Obstructive sleep apnea on CPAP Shingles Type 2 diabetes mellitus Surgical History Surgical History History of colonoscopy History of laparoscopic adjustable gastric banding (2009) History of laparoscopic cholecystectomy (05/2003) History of sinus surgery (1981) History of umbilical hernia repair (03/2008) History of wisdom tooth extraction (1984) Status post trigger finger release Family History Family History Father Heart disease Grandparent Heart disease Social History Social History Social History: Surrogate med
[2022-01-09 19:39] VITALS: O2SAT 96
[2022-01-09 20:25] VITALS: BP 129/84
[2022-01-09 20:35] VITALS: BP 129/84
== END 2022-01-09 20:30 | disposition home or self-care (01) ==
PROVIDERS: Emergency Medicine; Emergency Provider General Practice
DX: R42 Dizziness and giddiness (principal); E86.0 Dehydration; Z20.822 Contact with and (suspected) exposure to COVID-19; E78.5 Hyperlipidemia, unspecified; I10 Essential (primary) hypertension; E11.40 Type 2 diabetes mellitus with diabetic neuropathy, unspecified; G47.33 Obstructive sleep apnea (adult) (pediatric); Z79.84 Long term (current) use of oral hypoglycemic drugs; Z79.82 Long term (current) use of aspirin; Z98.84 Bariatric surgery status; Z87.891 Personal history of nicotine dependence
CPT/HCPCS: 36415; 70450; 71046; 80053; 81001; 85025; 93005; 96374; 96375; 99285; A9270; C9803; J0131; J2405; J7030; U0003; U0005

== ENCOUNTER 2022-03-25 13:23 | Emergency (ER) | payer OTHER, SELFPAY ==
[2022-03-25 13:29] VITALS: BP 124/85; PULSE 92; RESP 16; TEMP 36.8; O2SAT 97
--- NOTE | 2022-03-25 14:21 | ED.SKABFB ---
HPI - Skin/Abscess/Foreign Bdy General Chief complaint: Skin/Abscess/Foreign Body Stated complaint: Nose Swelling and Pain Time Seen by Provider: 03/25/22 14:21 Source: patient, RN notes reviewed and old records reviewed Mode of arrival: ambulatory Limitations: no limitations History of Present Illness HPI narrative: 61-year-old presents to the [facility] with complaints erythema to the left nostril area. Has a history of cellulitis, uses bacitracin after trimming his nose hairs. Symptoms started a day and half ago. Denies fevers. Has something similar in the past and states that he wants to just get the antibiotic started so it does not get worse. Related Data Home Medications Medication Instructions Recorded Confirmed ascorbic acid (vitamin C) 1,000 mg 1,000 mg PO DAILY 12/01/21 03/25/22 tablet chlorthalidone 25 mg tablet 25 mg PO HS 12/01/21 03/25/22 dulaglutide 1.5 mg/0.5 mL 1.5 mg subcut WEEKLY 12/01/21 03/25/22 subcutaneous pen injector (Trulicity) empagliflozin 25 mg tablet 25 mg PO DAILY 12/01/21 03/25/22 (Jardiance) escitalopram oxalate 10 mg tablet 10 mg PO HS 12/01/21 03/25/22 ferrous sulfate 325 mg (65 mg See Rx Instructions .Route .COMPLEX 12/01/21 03/25/22 iron) tablet (FeroSul) lisinopril 40 mg tablet 40 mg PO HS 12/01/21 03/25/22 metformin 1,000 mg tablet 100 mg PO BID 12/01/21 03/25/22 multivitamin 1 tablet PO DAILY 12/01/21 03/25/22 omeprazole 20 mg capsule,delayed 20 mg PO HS 12/01/21 03/25/22 release tramadol 50 mg tablet 150 mg PO BID 12/01/21 03/25/22 aspirin 81 mg tablet,delayed 81 mg DAILY 12/29/21 03/25/22 release loratadine 10 mg tablet 10 mg PO DAILY 12/29/21 03/25/22 omega-3 acid ethyl esters 1 gram 1 cap PO DAILY 12/29/21 03/25/22 capsule (Lovaza) rosuvastatin 20 mg tablet 20 mg DAILY 12/29/21 03/25/22 Allergies Allergy/AdvReac Type Severity Reaction Status Date / Time pregabalin [From Lyrica] Allergy Unknown Verified 03/25/22 14:30 duloxetine [From Cymbalta] AdvReac Insomnia Verified 03/25/22 14:30 Review of Systems Review of Systems: All systems reviewed & are unremarkable except as noted in HPI and below Constitutional: Constitutional: Reports no additional constitutional complaints Eyes: Eyes: Reports no additional eye complaints ENT: Reports system reviewed and no additional complaints, except as documented Cardiovascular: Cardiovascular: Reports no additional cardiovascular complaints, Denies chest pain and Denies dyspnea Respiratory: Respiratory: Reports no additional respiratory complaints, Denies chest congestion, Denies cough and Denies dyspnea Gastrointestinal: Gastrointestinal: Reports no additional gastrointestinal complaints, Denies abdominal pain, Denies nausea and Denies vomiting Musculoskeletal: Musculoskeletal: Reports no additional musculoskeletal complaints Integumentary/Breasts: Skin/Breast: Reports as per HPI and Reports erythema Neurologic: Reports system reviewed and no additional complaints, except as documented Psychiatric: Psychiatric: Reports no additional psychiatric complaints Allergic/Immunologic: Allergic/Immunologic: Reports no additional allergic/immunologic complaints PMFSH Past Medical History Medical History Hyperlipidemia Hypertension Neuropathy Obstructive sleep apnea on CPAP Shingles Type 2 diabetes mellitus Surgical History Surgical History History of colonoscopy History of laparoscopic adjustable gastric banding (2009) History of laparoscopic cholecystectomy (05/2003) History of sinus surgery (1981) History of umbilical hernia repair (03/2008) History of wisdom tooth extraction (1984) Status post trigger finger release Family History Family History Father Heart disease Grandparent Heart disease Social History Social History
== END 2022-03-25 14:46 | disposition home or self-care (01) ==
PROVIDERS: Emergency Provider Nurse Practitioner
DX: J34.0 Abscess, furuncle and carbuncle of nose (principal); Z87.891 Personal history of nicotine dependence; E78.5 Hyperlipidemia, unspecified; I10 Essential (primary) hypertension; G47.33 Obstructive sleep apnea (adult) (pediatric); E11.21 Type 2 diabetes mellitus with diabetic nephropathy; Z79.84 Long term (current) use of oral hypoglycemic drugs; Z79.82 Long term (current) use of aspirin
CPT/HCPCS: 99213; G0463

== ENCOUNTER 2022-08-07 16:34 | Emergency (ER) | payer OTHER, SELFPAY ==
[2022-08-07 16:48] VITALS: BP 138/66; PULSE 103; RESP 18; TEMP 36.4; O2SAT 100
--- NOTE | 2022-08-07 17:16 | ED.GENADULT ---
HPI - General Adult General Chief complaint: Upper Respiratory Infection Stated complaint: Cough,Congestion,Body Aches Time Seen by Provider: 08/07/22 16:50 Source: patient, RN notes reviewed and old records reviewed Mode of arrival: ambulatory Limitations: no limitations History of Present Illness HPI narrative: 62 year old male with symptoms of COVID since Thursday morning which include, sore throat, body aches, productive cough, and some shortness of breath. Patient reports that he has had bad headache and has been taking Ibuprofen with minimal headache decrease voiced He reports that his fever has decreased but he is still taking OTC medications due to headache. Patient reports that his cough is bad and he does feel weak and has dyspnea with minimal exertion. Patient reports decreased diet with increased thirst,patient is diabetic and on oral medications and Trulicity. Patient reports they only had one home test left and started with symptoms on Thursday 2 days after him and she tested positive for COVID. Patient has been quarantining since Thursday. MD complaint: cough, headache, shortness of breath, Onset (ago): day(s) (5) Severity scale (1-10): 5 Quality: aching Pain Consistency: constant Exacerbating factors: movement and other (activity) Associated symptoms: cough, fever/chills, headaches, loss of appetite, malaise, shortness of breath (exertional) and weakness Treatments prior to arrival: NSAID and other Related Data Home Medications Medication Instructions Recorded Confirmed ascorbic acid (vitamin C) 1,000 mg 1,000 mg PO DAILY 12/01/21 08/07/22 tablet chlorthalidone 25 mg tablet 25 mg PO HS 12/01/21 08/07/22 dulaglutide 1.5 mg/0.5 mL 1.5 mg subcut WEEKLY 12/01/21 08/07/22 subcutaneous pen injector (Trulicity) empagliflozin 25 mg tablet 25 mg PO DAILY 12/01/21 08/07/22 (Jardiance) escitalopram oxalate 10 mg tablet 10 mg PO HS 12/01/21 08/07/22 ferrous sulfate 325 mg (65 mg See Rx Instructions .Route .COMPLEX 12/01/21 08/07/22 iron) tablet (FeroSul) lisinopril 40 mg tablet 40 mg PO HS 12/01/21 08/07/22 metformin 1,000 mg tablet 100 mg PO BID 12/01/21 08/07/22 multivitamin 1 tablet PO DAILY 12/01/21 08/07/22 omeprazole 20 mg capsule,delayed 20 mg PO HS 12/01/21 08/07/22 release tramadol 50 mg tablet 150 mg PO BID 12/01/21 08/07/22 aspirin 81 mg tablet,delayed 81 mg DAILY 12/29/21 08/07/22 release loratadine 10 mg tablet 10 mg PO DAILY 12/29/21 08/07/22 omega-3 acid ethyl esters 1 gram 1 cap PO DAILY 12/29/21 08/07/22 capsule (Lovaza) rosuvastatin 20 mg tablet 20 mg DAILY 12/29/21 08/07/22 Allergies Allergy/AdvReac Type Severity Reaction Status Date / Time pregabalin [From Lyrica] Allergy Unknown Verified 08/07/22 16:56 duloxetine [From Cymbalta] AdvReac Insomnia Verified 08/07/22 16:56 Review of Systems Review of Systems: CONSTITUTIONAL: Reports malaise, chills, sweats, or fever. EYES: Denies visual changes, reports red rimmed eyes redness, no discharge. ENT: Reports rhinorrhea, congestion, sinus pain, otalgia and sore throat. CARDIOVASCULAR: Denies chest pain, palpitations, or edema. RESPIRATORY: Reports productive cough.? dyspnea with exertion. GASTROINTESTINAL: Denies abdominal pain, nausea, vomiting, diarrhea SKIN: Denies rash or itching. MUSCULOSKELETAL: reports myalgia. NEUROLOGIC: reports headache. All systems reviewed & are unremarkable except as noted in HPI and below PMFSH Past Medical History Medical History Hyperlipidemia Hypertension Neuropathy Obstructive sleep apnea on CPAP Shingles Type 2 diabetes mellitus Surgical History Surgical History History of colonoscopy History of laparoscopic adjustable gastric banding (2009) History of laparoscopic cholecystectomy (05/2003) History of sinus surgery (1981) History of umbilical hernia repair (03/31
== END 2022-08-07 17:25 | disposition home or self-care (01) ==
PROVIDERS: Emergency Provider Registered Nurse
DX: U07.1 COVID-19 (principal); Z87.891 Personal history of nicotine dependence; E78.5 Hyperlipidemia, unspecified; I10 Essential (primary) hypertension; E11.40 Type 2 diabetes mellitus with diabetic neuropathy, unspecified; G47.33 Obstructive sleep apnea (adult) (pediatric); Z79.82 Long term (current) use of aspirin
CPT/HCPCS: 99213; G0463

== ENCOUNTER 2022-08-09 10:11 | Observation (INO) | payer OTHER, SELFPAY ==
[2022-08-09] VITALS (26 sets, daily range): BP systolic 101–139; BP diastolic 61–78; PULSE 67–101; RESP 14–32; TEMP 36.4–36.9; O2SAT 90–98; BMI 35.8
--- NOTE | ~2022-08-09 | CT_ITS ---
EXAMINATION: CTA chest PE abdomen pel DATE: 08/09/2022 12:11 CDT INDICATION: Elevated bilirubin. Elevated d-dimer. Pain with inspiration. Covid positive. TECHNIQUE: Computed tomographic angiography (CTA) of the chest, abdomen, and pelvis was performed wit hout and with 100 mL Omnipaque-350 intravenous contrast. The dose-length product was 2361.91 mGy-cm. Maximum intensity projection 3D-reconstructions of the aorta and other arteries were constructed by vishnu peterson technologist on a separate workstation. Automated exposure control and iterative reconstruction te chnique were employed. COMPARISON: Chest x-ray dated 08/09/2022. FINDINGS: CHEST CTA: Study is technically adequate without evidence for pulmonary embolism. Borderline heart size. No sign ificant pleural or pericardial effusion. No thoracic lymphadenopathy. There are patchy groundglass op acities throughout both lungs, compatible with pneumonia. No endobronchial lesions. No evidence for a ortic aneurysm or dissection. No pneumothorax. There is a laparoscopic adjustable gastric band. There is a hiatal hernia. ABDOMEN AND PELVIS CTA: There is a 1.9 cm liver cyst. There are cholecystectomy clips. The spleen, pancreas, adrenal glands a nd kidneys are unremarkable. There are cholecystectomy clips. Colonic diverticulosis without evidence for diverticulitis. There are changes of ventral abdominal wall hernia repair. There are cholecystec beronica clips. The spleen, pancreas, adrenal glands and kidneys are unremarkable. No evidence for aortic aneurysm or dissection. No abnormal pelvic masses or fluid collections. Normal appendix. No free air or free fluid. There is moderate lower thoracic and lumbar spondylosis. IMPRESSION: 1. Patchy groundglass opacities throughout both lungs, compatible with pneumonia. Reviewed, dictated and finalized at location A. IMPRESSION: 1. Patchy groundglass opacities throughout both lungs, compatible with pneumoni a.
--- NOTE | ~2022-08-09 | XR_ITS ---
XR chest 1V portable INDICATION: Shortness of breath and cough TECHNIQUE: 2 view chest. FINDINGS: Comparison to 01/09/2022 There is mild bilateral interstitial prominence and peribronchial cuffing. There is no focal consoli dation, pleural effusion, or pneumothorax. The cardiomediastinal silhouette is normal. IMPRESSION: 1. Findings most consistent with bronchiolitis versus an atypical or viral pneumonia. Reviewed, dictated and finalized at location A. IMPRESSION: 1. Findings most consistent with bronchiolitis versus an atypical or viral pne [facility].
--- NOTE | 2022-08-09 10:34 | ECG_ITS ---
Measurements Intervals [place] Rate: 98 P: 71 HI: 165 QRS: -12 QRSD: 97 T: 16 QT: 347 QTc: 443 Interpretive Statements SINUS RHYTHM ATRIAL PREMATURE COMPLEX EARLY PRECORDIAL R/S TRANSITION NONSPECIFIC ST & T-WAVE ABNORMALITY- ANT/INF LEADS BASELINE ARTIFACT- I, II, III, AVR, AVF, V2-V6 BORDERLINE ECG COMPARED TO ECG 01/09/2022 16:03:14 NO SIGNIFICANT CHANGES Electronically Signed On 08-09-2022 13:05:51 CDT by Asad Grimaldo D.O.
--- NOTE | 2022-08-09 10:34 | ED.GENADULT ---
HPI - General Adult General Chief complaint: Unspecified Stated complaint: covid exposure, cough, itchy eyes, chills, thirsty Time Seen by Provider: 08/09/22 10:22 History of Present Illness HPI narrative: 62-year-old male presents to the emergency room today for symptoms of cough and chest congestion that started on Thursday. He reports nasal drainage and itchy watery eyes. He started to get worse on Thursday. His took a home test that was positive so his primary care presume that he was also positive. He continues to feel worse and is now starting to feel short of breath. He is also reporting brief pains in his center chest when he takes a deep breath. He reports that he is coughing up dark phlegm. He has had chills at home but has not checked his temperature. No nausea, vomiting or diarrhea. Past medical history significant for diabetes, hypertension and hyperlipidemia. Related Data Home Medications Medication Instructions Recorded Confirmed ascorbic acid (vitamin C) 1,000 mg 1,000 mg PO DAILY 12/01/21 08/07/22 tablet chlorthalidone 25 mg tablet 25 mg PO HS 12/01/21 08/07/22 dulaglutide 1.5 mg/0.5 mL 1.5 mg subcut WEEKLY 12/01/21 08/07/22 subcutaneous pen injector (Trulicity) empagliflozin 25 mg tablet 25 mg PO DAILY 12/01/21 08/07/22 (Jardiance) escitalopram oxalate 10 mg tablet 10 mg PO HS 12/01/21 08/07/22 ferrous sulfate 325 mg (65 mg See Rx Instructions .Route .COMPLEX 12/01/21 08/07/22 iron) tablet (FeroSul) lisinopril 40 mg tablet 40 mg PO HS 12/01/21 08/07/22 metformin 1,000 mg tablet 100 mg PO BID 12/01/21 08/07/22 multivitamin 1 tablet PO DAILY 12/01/21 08/07/22 omeprazole 20 mg capsule,delayed 20 mg PO HS 12/01/21 08/07/22 release tramadol 50 mg tablet 150 mg PO BID 12/01/21 08/07/22 aspirin 81 mg tablet,delayed 81 mg DAILY 12/29/21 08/07/22 release loratadine 10 mg tablet 10 mg PO DAILY 10/02/22 05/11/23 omega-3 acid ethyl esters 1 gram 1 cap PO DAILY 12/29/21 08/07/22 capsule (Lovaza) rosuvastatin 20 mg tablet 20 mg DAILY 12/29/21 08/07/22 Allergies Allergy/AdvReac Type Severity Reaction Status Date / Time pregabalin [From Lyrica] Allergy Unknown Verified 08/07/22 16:56 duloxetine [From Cymbalta] AdvReac Insomnia Verified 08/07/22 16:56 Review of Systems Review of Systems: CONSTITUTIONAL: Chills, reports fatigue EYES: Denies visual changes, redness, or discharge. ENT: As per HPI CARDIOVASCULAR: intermittent brief chest pain, No palpitations, or edema. RESPIRATORY: Reports cough and dyspnea. GASTROINTESTINAL: Denies abdominal pain, nausea, vomiting, or diarrhea. GENITOURINARY: Denies dysuria or hematuria. SKIN: Denies rash or itching. MUSCULOSKELETAL: Denies back pain, joint pain, or myalgia. NEUROLOGIC: Denies headache, numbness, dizziness, or weakness. PSYCHIATRIC: Denies anxiety or depression. [facility] Past Medical History Medical History (Updated 08/09/22 @ 13:27 by Rita Lennon APRN) Depression Hyperlipidemia Hypertension Neuropathy Obstructive sleep apnea on CPAP Shingles Type 2 diabetes mellitus Surgical History Surgical History History of colonoscopy History of laparoscopic adjustable gastric banding (2009) History of laparoscopic cholecystectomy (05/2003) History of sinus surgery (1981) History of umbilical hernia repair (03/2008) History of wisdom tooth extraction (1984) Status post trigger finger release Family History Family History Father Heart disease Grandparent Heart disease Social History Social History Social History: 2 children Surrogate medical decision maker: Jacqueline Renner, spouse. Code status: Full code. Smoking packs per day: 1 Smoking cigarettes per day: 20.0 Years smoked: 8 Smoking pack-years: 8.00 Smoking status: Former smoker Tobacco t
[2022-08-09] MEDS: ONDANSETRON INJ 4 MG/2 ML VIAL IV PUSH (10:59)
[2022-08-09] MEDS: KETOROLAC 15 MG/ML VIAL (*BKC) IV PUSH (10:59)
[2022-08-09 11:03] LABS: Hematocrit 38.9 % (42.0-52.0); Hemoglobin 13.4 g/dL (14.0-18.0); Mean Corpuscular HGB Conc 34.4 g/dl (32-36); Mean Corpuscular Hemoglobin 29.1 pg (26-34); Mean Corpuscular Volume 84.6 fl (80-100); Mean Platelet Volume 9.5 fl (7.4-10.4); Platelet Count Result 169 k/mm3 (150-375); Red Cell Distribution Width 13.2 % (11.5-14.5); White Blood Count 15.6 K/mm3 (4.5-10.0)
[2022-08-09 11:10] LABS: Alanine Aminotransferase 58 U/L (6-50); Albumin Level 4.1 g/dL (3.5-5.1); Alkaline Phosphatase 72 U/L (38-126); Anion Gap 13 mmol/L (8-16); Aspartate Amino Transferase 37 U/L (17-59); Bilirubin,Total 4.8 mg/dL (0.2-1.3); Blood Urea Nitrogen 20 mg/dL (9-20); Calcium 8.3 mg/dL (8.4-10.2); Carbon Dioxide 29 mmol/L (22-30); Chloride 91 mmol/L (98-107); Estimated CRCL calculation 84 ml/min; Estimated Glomerular Filt Rate > 60; Glucose 205 mg/dL (65-110); Magnesium 1.6 mg/dL (1.6-2.3); Potassium 2.8 mmol/L (3.4-5.0); Sodium 133 mmol/L (137-145)
[2022-08-09 11:14] LABS: INR 1.1; Partial Thromboplastin Time 30.5 SECONDS (22.3-36.8); Prothrombin Time 14.4 Seconds (11.1-14.7)
[2022-08-09 11:15] LABS: SARS-CoV-2 RNA PCR Positive (Negative)
[2022-08-09 11:17] LABS: D Dimer 0.66 ug/mL (<0.48)
[2022-08-09 11:19] LABS: NT Pro B Type Natriuretic Pept 32 pg/mL (19.9-100); Troponin I < 0.012 ng/mL (0.000-0.034)
[2022-08-09 11:23] LABS: Band Neutrophils Percent 20 % (0-6); Lymphocytes Absolute Manual 0.46 K/mm3 (1.1-4.5); Monocytes Absolute Manual 1.09 K/mm3 (0.1-0.90); Monocytes Percent Manual 7 % (3-9); Neutrophils Absolute Manual 14.04 K/mm3 (1.3-6.7); Neutrophils Percent Manual 70 % (46-73); Platelet Estimate Adequate (Adequate); Schistocytes None Seen (NORMAL); Total Cells Counted 100
[2022-08-09 11:56] LABS: Lipase 54 U/L (23-300)
[2022-08-09] MEDS: KCL 20 MEQ/SW 100 ML 100 ML 50 MEQ IVPB (12:18)
[2022-08-09] MEDS: POTASSIUM CHLORIDE 20 MEQ PACKET (FOR LIQUID) 40 MEQ PO (12:19)
[2022-08-09] MEDS: SODIUM CHLORIDE 0.9% IV 1,000 ML 500 ML (13:18)
--- NOTE | 2022-08-09 13:24 | PM.IMHP ---
H&P: HPI History of Present Illness Date/Time: 08/09/22 13:24 Chief Complaint: Fatigue and shortness of breath Narrative: this is a 62-year-old male patient who stated that he started having symptoms approximately 6 days ago. His tested positive for COVID just a few days ago. The patient has been having cough and congestion that started 6 days ago. Has had some nasal drainage and itchy eyes. His symptoms got worse on Thursday. The patient has been fully vaccinated for COVID. Patient has felt fatigued and has been having a dark colored phlegm. He also complains of a headache and body aches. He had chills at home. He denies any nausea vomiting diarrhea. Chest abdominal pelvis CT was read as patchy ground-glass opacities throughout both lungs compatible with pneumonia. Chest x-ray was read as findings most consistent with bronchiolitis versus an atypical or viral pneumonia. He was given Zofran, Toradol, potassium, Rocephin and azithromycin as well as normal saline. His potassium was found to be 2.8. White count 15.6. H&H is 13.4 and 38.9. sodium is 133 and glucose is 205. Troponin was nonreactive. He was positive for COVID. The patient is being admitted to observation status on the date of service of 08/09/2022. Review of Systems Review of Systems: All systems reviewed & are unremarkable except as noted in HPI and below Constitutional: Constitutional: Reports as per HPI and Reports no additional constitutional complaints Eyes: Eyes: Reports as per HPI and Reports no additional eye complaints ENT: Reports system reviewed and no additional complaints, except as documented and Reports Normal hearing present Cardiovascular: Cardiovascular: Reports no additional cardiovascular complaints Respiratory: Respiratory: Reports no additional respiratory complaints and Reports no additional respiratory complaints Gastrointestinal: Gastrointestinal: Reports as per HPI and Reports no additional gastrointestinal complaints Musculoskeletal: Musculoskeletal: Reports no additional musculoskeletal complaints Integumentary/Breasts: Skin/Breast: Reports system reviewed and no additional complaints, except as docu and Reports as per HPI Neurologic: Reports system reviewed and no additional complaints, except as documented, Reports as per HPI and Reports Normal hearing present Psychiatric: Psychiatric: Reports no additional psychiatric complaints and Reports as per HPI Endocrine: Endocrine: Reports no additional endocrine complaints Hematologic/Lymphatic: Hematologic/Lymphatic: Reports no additional hematologic/lymphatic complaints Allergic/Immunologic: Allergic/Immunologic: Reports no additional allergic/immunologic complaints PMFSH Past Medical History Medical History (Updated 08/09/22 @ 16:28 by Pippa Vyas NP) Depression Hyperlipidemia Hypertension Neuropathy Obstructive sleep apnea on CPAP Shingles Type 2 diabetes mellitus Surgical History Surgical History History of colonoscopy History of laparoscopic adjustable gastric banding (2009) History of laparoscopic cholecystectomy (05/2003) History of sinus surgery (1981) History of umbilical hernia repair (03/2008) History of wisdom tooth extraction (1984) Status post trigger finger release Family History Family History Father Heart disease Grandparent Heart disease Social History Social History (Updated 08/09/22 @ 15:53 by Pippa Vyas NP) Social History: He is and has 2 children. He is retired. Surrogate medical decision maker: Jacqueline Renner, spouse. Code status: Full code. Smoking packs per day: 1 Smoking cigarettes per day: 20.0 Years smoked: 8 Smoking pack-years: 8.00 Smoking status: Former smoker Tobacco type: cigarettes Smoking end date: 03/30/88 Alcohol intake: never Alcohol use details: Rare alcohol u
[2022-08-09] MEDS: ACETAMINOPHEN 500 MG TABLET 1000 MG PO (13:46)
[2022-08-09] MEDS: AZITHROMYCIN 500 MG/NS 250 ML 500 MG/250 ML BAG 250 MG IVPB (14:45)
--- NOTE | 2022-08-09 15:01 | PC.NURSE ---
This patient, Govind Renner III, was admitted to Medical Room 245-. Patient/family oriented to hospital policies and general routines including ID bracelet, bed and alarms, visiting hours, pain management, procedures, bathroom and other care routines, personal items, smoking policy, room service/diet, and visiting hours. Information on how to activate the Rapid Response Team has been discussed. Patient/Family are encouraged to report perceived risks to care and to ask questions if they do not understand what they are told or what they should do.
[2022-08-09] MEDS: traMADol HCL (*CRX) 50 MG TABLET 150 MG PO (17:14)
[2022-08-09] MEDS: ENOXAPARIN 40 MG/0.4 ML SYRINGE SUB-Q (17:15)
[2022-08-09 17:19] LABS: Glucose Point of Care 283 mg/dl (65-105)
[2022-08-09] MEDS: INSULIN ASPART (*BKC) 100 UNITS/ML SUB-Q ×2 (17:20→21:35)
[2022-08-09 21:06] LABS: Anion Gap 13 mmol/L (8-16); Blood Urea Nitrogen 25 mg/dL (9-20); Calcium 8.3 mg/dL (8.4-10.2); Carbon Dioxide 26 mmol/L (22-30); Chloride 96 mmol/L (98-107); Estimated CRCL calculation 85 ml/min; Estimated Glomerular Filt Rate > 60; Glucose 265 mg/dL (65-110); Potassium 3.4 mmol/L (3.4-5.0); Sodium 135 mmol/L (137-145)
[2022-08-09 21:46] LABS: Glucose Point of Care 245 mg/dl (65-105)
[2022-08-09] MEDS: CHLORTHALIDONE 25 MG TABLET PO (21:47)
[2022-08-09] MEDS: ESCITALOPRAM OXALATE 10 MG TABLET PO (21:47)
[2022-08-09] MEDS: lisinopriL 20 MG TABLET 40 MG PO (21:47)
[2022-08-09] MEDS: OMEGA 3 POLYUNSAT FATTY ACIDS 1 GM CAP 4 GM PO (21:48)
[2022-08-09] MEDS: PANTOPRAZOLE 40 MG TABLET PO (21:49)
[2022-08-09] MEDS: SIMVASTATIN 20 MG TABLET 40 MG PO (21:50)
[2022-08-10] VITALS (7 sets, daily range): BP systolic 106–125; BP diastolic 51–58; PULSE 82–88; RESP 16–18; TEMP 36.7–37.7; O2SAT 92–96
[2022-08-10] MEDS: ACETAMINOPHEN 325 MG TABLET 650 MG PO (02:25)
[2022-08-10 06:03] LABS: Hematocrit 36.4 % (42.0-52.0); Hemoglobin 12.4 g/dL (14.0-18.0); Mean Corpuscular HGB Conc 34.1 g/dl (32-36); Mean Platelet Volume 9.8 fl (7.4-10.4); Platelet Count Result 175 k/mm3 (150-375); Red Blood Count 4.28 M/mm3 (4.6-6.20); Red Cell Distribution Width 13.1 % (11.5-14.5); White Blood Count 16.7 K/mm3 (4.5-10.0)
[2022-08-10 06:11] LABS: Lactic Acid Reflex 1.1 mmol/L (0.7-2.0)
[2022-08-10 06:12] LABS: Lipase 36 U/L (23-300)
[2022-08-10 06:15] LABS: Hemoglobin A1C 6.4 % (<5.7)
[2022-08-10 07:21] LABS: Band Neutrophils Percent 24 % (0-6); Lymphocytes Absolute Manual 0.33 K/mm3 (1.1-4.5); Monocytes Percent Manual 6 % (3-9); Neutrophils Absolute Manual 15.36 K/mm3 (1.3-6.7); Neutrophils Percent Manual 68 % (46-73); Platelet Estimate Adequate (Adequate); Schistocytes None Seen (NORMAL); Total Cells Counted 100
[2022-08-10 07:22] LABS: Burr Cells 1+ (NORMAL)
[2022-08-10 07:34] LABS: Alanine Aminotransferase 50 U/L (6-50); Albumin Level 3.8 g/dL (3.5-5.1); Alkaline Phosphatase 71 U/L (38-126); Anion Gap 9 mmol/L (8-16); Aspartate Amino Transferase 32 U/L (17-59); Bilirubin,Total 2.1 mg/dL (0.2-1.3); Blood Urea Nitrogen 24 mg/dL (9-20); Calcium 8.3 mg/dL (8.4-10.2); Carbon Dioxide 31 mmol/L (22-30); Chloride 94 mmol/L (98-107); Estimated CRCL calculation 85 ml/min; Estimated Glomerular Filt Rate > 60; Glucose 135 mg/dL (65-110); Potassium 3.1 mmol/L (3.4-5.0); Sodium 134 mmol/L (137-145)
[2022-08-10 08:21] LABS: Glucose Point of Care 145 mg/dl (65-105)
[2022-08-10] MEDS: ASCORBIC ACID 500 MG TABLET 1000 MG PO (08:56)
[2022-08-10] MEDS: traMADol HCL (*CRX) 50 MG TABLET 150 MG PO ×2 (08:57→17:07)
[2022-08-10] MEDS: MULTIVITAMINS THERAPEUTIC TAB (*BKC) 1 TABLET PO (08:57)
[2022-08-10] MEDS: EMPAGLIFLOZIN 25 MG TABLET PO (08:57)
--- NOTE | 2022-08-10 11:22 | PM.IMPN ---
Progress Note: A&P Assessment and Plan (1) Pneumonia due to COVID-19 virus: Code(s): U07.1 - COVID-19; J12.82 - Pneumonia due to coronavirus disease 2019 Status: Acute Assessment and Plan: Patient presented to the ED on 08/09/2022 with worsening shortness of breath , cough and headache due to COVID-19. Chest x-ray consistent with bronchiolitis versus atypical or viral pneumonia. CTA chest abdomen pelvis revealing ground-glass opacities throughout both lungs compatible with pneumonia. Dexamethasone 6 mg daily started on 08/10 Patient was placed on azithromycin and Rocephin for possibility of a secondary bacterial infection. Patient does have leukocytosis on admission and this may stay elevated due to steroid treatment. Will get sputum and blood cultures. The patient tested positive for COVID -19. Continue with droplet and contact isolation Patient not needing oxygen supplementation at this time. DuoNeb ordered (2) Acute hypokalemia: Code(s): E87.6 - Hypokalemia Status: Acute Assessment and Plan: Replace as necessary Magnesium 2.0 (3) Obstructive sleep apnea on CPAP: Code(s): G47.33 - Obstructive sleep apnea (adult) (pediatric); Z99.89 - Dependence on other enabling machines and devices Status: Acute Assessment and Plan: continue with CPAP/ BiPAP settings from home. (4) Type 2 diabetes mellitus: Code(s): E11.9 - Type 2 diabetes mellitus without complications Status: Acute Assessment and Plan: Accu-Cheks AC and HS with sliding scale insulin. hemoglobin A1c 6.4 Hypoglycemic protocol continue Jardiance (5) Hypertension: Code(s): I10 - Essential (primary) hypertension Status: Acute Assessment and Plan: continue with lisinopril and chlorthalidone. (6) Hyperbilirubinemia: Code(s): E80.6 - Other disorders of bilirubin metabolism Status: Acute Assessment and Plan: May be related to his COVID. CT of the abdomen showed a 1.9 cm liver cyst Has decreased for remission. Subjective Date/time seen: 08/10/22 11:22 Interval history: Patient sitting on the side the bed stating that he continues to have terrible headache and when he coughs it hurts his chest. patient's symptoms sound like pleurisy. Patient does appear very ill. Patient states that when he takes deep breaths in an out or coughs that it makes his pain worse. He denies nausea, vomiting, abdominal pain, body aches, chills and diarrhea. He is not requiring oxygen at this time. Review of Systems Review of Systems: All systems reviewed & are unremarkable except as noted in HPI and below Exam Narrative: GENERAL: Comfortable, no acute distress HENMT: moist mucous membranes EYES: EOM intact b/l NECK: no lymphadenopathy RESPIRATORY: Distant breath sounds CARDIO: RRR GI: soft, nontender, bowel sounds present SKIN: no rashes EXTREMITIES: no edema, redness or tenderness Objective Data Vital Signs Vital Signs: Vital Signs - 24 hr 08/09/22 11:31 08/09/22 11:32 08/09/22 11:45 Temperature Pulse Rate 95 98 94 Respiratory Rate 27 H 25 H 26 H Blood Pressure 134/66 Pulse Oximetry 93 93 Oxygen Delivery 08/09/22 11:46 08/09/22 12:08 08/09/22 12:10 Temperature Pulse Rate 97 95 93 Respiratory Rate 24 H 25 H 25 H Blood Pressure 123/71 119/67 Pulse Oximetry 94 92 92 Oxygen Delivery 08/09/22 12:48 08/09/22 13:00 08/09/22 13:01 Temperature Pulse Rate 92 92 93 Respiratory Rate 27 H 32 H 28 H Blood Pressure 117/70 Pulse Oximetry 92 91 90 Oxygen Delivery 08/09/22 13:34 08/09/22 14:07 08/09/22 14:15 Temperature Pulse Rate Respiratory Rate Blood Pressure Pulse Oximetry 92 93 92 Oxygen Delivery 08/09/22 14:16 08/09/22 14:49 08/09/22 14:17 Temperature Pulse Rate 87 Respiratory Rate 18 Blood Pressure 127/77 113/78 Pul
[2022-08-10] MEDS: AZITHROMYCIN IV 500 MG in SODIUM CHLORIDE 0.9% IV 250 ML 250 MG IVPB (12:14)
[2022-08-10 12:16] LABS: Glucose Point of Care 169 mg/dl (65-105)
[2022-08-10] MEDS: LEVALBUTEROL NEB 1.25 MG/3 ML INHALATION ×2 (14:18→20:02)
[2022-08-10] MEDS: POTASSIUM CHLORIDE 20 MEQ PACKET (FOR LIQUID) 40 MEQ PO (15:46)
--- NOTE | 2022-08-10 16:27 | PHAR ---
The patient's home med of TRULICITY 1.5MG/0.5ML has been verified.
[2022-08-10] MEDS: ENOXAPARIN 40 MG/0.4 ML SYRINGE SUB-Q (17:08)
[2022-08-10 17:10] LABS: Glucose Point of Care 175 mg/dl (65-105)
[2022-08-10] MEDS: CHLORTHALIDONE 25 MG TABLET PO (20:46)
[2022-08-10] MEDS: OMEGA 3 POLYUNSAT FATTY ACIDS 1 GM CAP 4 GM PO (20:46)
[2022-08-10] MEDS: ESCITALOPRAM OXALATE 10 MG TABLET PO (20:47)
[2022-08-10] MEDS: lisinopriL 20 MG TABLET 40 MG PO (20:47)
[2022-08-10] MEDS: SIMVASTATIN 20 MG TABLET 40 MG PO (20:47)
[2022-08-10] MEDS: PANTOPRAZOLE 40 MG TABLET PO (20:47)
[2022-08-10 21:01] LABS: Glucose Point of Care 130 mg/dl (65-105)
[2022-08-11] VITALS (8 sets, daily range): BP systolic 102–123; BP diastolic 52–59; PULSE 73–88; RESP 18; TEMP 35.9–37.3; O2SAT 93–98; BMI 35.8
[2022-08-11 05:32] LABS: Hematocrit 34.8 % (42.0-52.0); Hemoglobin 12.1 g/dL (14.0-18.0); Mean Corpuscular HGB Conc 34.8 g/dl (32-36); Mean Corpuscular Hemoglobin 29.9 pg (26-34); Mean Corpuscular Volume 85.9 fl (80-100); Mean Platelet Volume 9.7 fl (7.4-10.4); Platelet Count Result 193 k/mm3 (150-375); Red Blood Count 4.05 M/mm3 (4.6-6.20); Red Cell Distribution Width 13.2 % (11.5-14.5); White Blood Count 13.5 K/mm3 (4.5-10.0)
[2022-08-11 05:45] LABS: Alanine Aminotransferase 52 U/L (6-50); Albumin Level 3.6 g/dL (3.5-5.1); Alkaline Phosphatase 68 U/L (38-126); Anion Gap 6 mmol/L (8-16); Aspartate Amino Transferase 41 U/L (17-59); Bilirubin,Total 1.3 mg/dL (0.2-1.3); Blood Urea Nitrogen 22 mg/dL (9-20); Calcium 8.1 mg/dL (8.4-10.2); Carbon Dioxide 35 mmol/L (22-30); Chloride 93 mmol/L (98-107); Estimated CRCL calculation 78 ml/min; Estimated Glomerular Filt Rate > 60; Glucose 138 mg/dL (65-110); Magnesium 2.1 mg/dL (1.6-2.3); Sodium 134 mmol/L (137-145)
[2022-08-11 06:13] LABS: Band Neutrophils Percent 11 % (0-6); Lymphocytes Absolute Manual 0.67 K/mm3 (1.1-4.5); Lymphocytes Percent Manual 5 % (18-44); Monocytes Absolute Manual 0.94 K/mm3 (0.1-0.90); Monocytes Percent Manual 7 % (3-9); Neutrophils Absolute Manual 11.88 K/mm3 (1.3-6.7); Neutrophils Percent Manual 77 % (46-73); Total Cells Counted 100
[2022-08-11 06:14] LABS: Platelet Estimate Adequate (Adequate); Schistocytes None Seen (NORMAL)
[2022-08-11] MEDS: LEVALBUTEROL NEB 1.25 MG/3 ML INHALATION ×2 (08:37→14:57)
[2022-08-11 08:46] LABS: Glucose Point of Care 148 mg/dl (65-105)
[2022-08-11] MEDS: ASCORBIC ACID 500 MG TABLET 1000 MG PO (08:51)
[2022-08-11] MEDS: MULTIVITAMINS THERAPEUTIC TAB (*BKC) 1 TABLET PO (08:52)
[2022-08-11] MEDS: POTASSIUM CHLORIDE 20 MEQ TABLET 40 MEQ PO (08:52)
[2022-08-11] MEDS: EMPAGLIFLOZIN 25 MG TABLET PO (08:53)
[2022-08-11] MEDS: traMADol HCL (*CRX) 50 MG TABLET 150 MG PO (09:05)
[2022-08-11] MEDS: AZITHROMYCIN IV 500 MG in SODIUM CHLORIDE 0.9% IV 250 ML 250 MG IVPB (11:37)
[2022-08-11 12:14] LABS: Glucose Point of Care 179 mg/dl (65-105)
--- NOTE | 2022-08-11 13:06 | PCCCNOTE ---
On 08/11/22, the student, [Ana Yeh ], provided care and completed [facility] documentation on this patient. I have reviewed the student's documentation and agree with the findings.
--- NOTE | 2022-08-11 15:46 | PM.DS ---
DS: Admitting Diagnosis Discharge Date 08/11/2022 Admitting Diagnosis COVID-19 DS: Discharge Diagnosis Discharge Diagnosis (1) Pneumonia due to COVID-19 virus: Code(s): U07.1 - COVID-19; J12.82 - Pneumonia due to coronavirus disease 2019 Status: Acute Assessment and Plan: Patient presented to the ED on 08/09/2022 with worsening shortness of breath , cough and headache due to COVID-19. Positive COVID PCR on 08/09/2022 Chest x-ray consistent with bronchiolitis versus atypical or viral pneumonia. CTA chest abdomen pelvis revealing ground-glass opacities throughout both lungs compatible with pneumonia. Patient had no supplemental oxygen requirement, however did receive 2 doses of dexamethasone during admission. Mild leukocytosis secondary to steroids noted. Started on IV ceftriaxone and azithromycin for coverage of secondary bacterial pneumonia. Transition to p.o. cefdinir and azithromycin to complete a 7 and 5 day course respectively on discharge Sputum culture negative. Blood cultures negative to date Isolation precautions implemented and patient was educated on necessary COVID-19 precautions following discharge Albuterol rescue inhaler as needed Patient did have O2 sat evaluation with ambulation prior to discharge and had no hypoxia with activity. Patient did complete COVID-19 vaccination and booster (2) Acute hypokalemia: Code(s): E87.6 - Hypokalemia Status: Acute Assessment and Plan: Potassium low during admission. 3.0 at time of discharge patient received 40 mEq p.o. KCl. Will continue 20 mEq p.o. KCl daily for 7 days and repeat potassium levels in 1 week. This is likely GB did to poor p.o. intake. Anticipate complete resolution as patient is now better able to tolerate diet with improving COVID-19. Magnesium within normal limits (3) Obstructive sleep apnea on CPAP: Code(s): G47.33 - Obstructive sleep apnea (adult) (pediatric); Z99.89 - Dependence on other enabling machines and devices Status: Acute Assessment and Plan: Continue home CPAP (4) Type 2 diabetes mellitus: Code(s): E11.9 - Type 2 diabetes mellitus without complications Status: Acute Assessment and Plan: A1c is 6.4. Continue home regimen including Jardiance, metformin, and Trulicity. (5) Hypertension: Code(s): I10 - Essential (primary) hypertension Status: Acute Assessment and Plan: Blood pressures controlled. Continue home antihypertensives (6) Hyperbilirubinemia: Code(s): E80.6 - Other disorders of bilirubin metabolism Status: Acute Assessment and Plan: Total bilirubin levels elevated to 4.8 on admission. AST and ALT within normal limits. Alk-phos normal. May be related to acute viral illness. CT of the abdomen/pelvis showed 1.9 cm liver cyst. Total bilirubin levels normalized without intervention. DS: Summary Hospital Course Hospital Course: Date of admission: 08/09/2022 Date of discharge: 08/11/2022 Govind Renner is a 62-year-old male with a history of hypertension, hyperlipidemia, LESLYE on CPAP, type 2 diabetes mellitus, depression, and COVID-19 in 2019 who presented to the emergency department on 08/09/2022 with complaints of cough, chest congestion, and shortness of breath after being exposed to COVID, his had a positive home COVID test 2 days prior. On presentation to the ED, his vital signs were stable, O2 sat 98% on room air, mild leukocytosis of 15.6, potassium 2.8, additional laboratory workup unremarkable, and CXR showed findings most consistent with bronchiolitis versus atypical or viral pneumonia. He was admitted to the hospitalist service for further evaluation and management. Please see above for further details. He did not require supplemental oxygen during his admission. He was treated with antibiotics for suspected secondary bacterial pneumonia and this course was continued time of discharge
== END 2022-08-11 16:26 | disposition home or self-care (01) ==
LOC: ANHED 13:27 → ANH2MED 08-10 19:17
PROVIDERS: Internal Medicine Critical Care Medicine; Nurse Practitioner; Admitting Provider Student in an Organized Health Care Education/Training Program; Emergency Provider Nurse Practitioner Family; Visit Provider Physician Assistant
DX: U07.1 COVID-19 (principal); J12.82 Pneumonia due to coronavirus disease 2019; E87.6 Hypokalemia; G47.33 Obstructive sleep apnea (adult) (pediatric); Z99.89 Dependence on other enabling machines and devices; R94.31 Abnormal electrocardiogram [ECG] [EKG]; E11.65 Type 2 diabetes mellitus with hyperglycemia; E11.40 Type 2 diabetes mellitus with diabetic neuropathy, unspecified; I10 Essential (primary) hypertension; E80.6 Other disorders of bilirubin metabolism; E78.5 Hyperlipidemia, unspecified; R91.8 Other nonspecific abnormal finding of lung field; R97.1 Elevated cancer antigen 125 [CA 125]; D72.829 Elevated white blood cell count, unspecified; D64.9 Anemia, unspecified; R06.02 Shortness of breath; E87.1 Hypo-osmolality and hyponatremia; F32.A Depression, unspecified; Z98.84 Bariatric surgery status; Z87.891 Personal history of nicotine dependence; Z79.85 Long-term (current) use of injectable non-insulin antidiabetic drugs; Z79.84 Long term (current) use of oral hypoglycemic drugs; Z79.891 Long term (current) use of opiate analgesic; Z79.899 Other long term (current) drug therapy
CPT/HCPCS: 36415; 71045; 71275; 74177; 80048; 80053; 82948; 83036; 83605; 83690; 83735; 83880; 84484; 85025; 85380; 85610; 85730; 87040; 87070; 87205; 87635; 93005; 94640; 96361; 96365; 96366; 96367; 96372; 96375; 99285; A9270; G0378; J0456; J0696; J1100; J1650; J1815; J1885; J2405; J3480; J7030; J7050; Q9967; U0005

== ENCOUNTER 2023-01-30 13:45 | Emergency (ER) | payer OTHER, SELFPAY ==
--- NOTE | 2023-01-30 13:51 | ED.GENADULT ---
HPI - General Adult General Chief complaint: Skin/Abscess/Foreign Body Stated complaint: Nasal Irritation Time Seen by Provider: 01/30/23 13:52 Source: patient, RN notes reviewed and old records reviewed Mode of arrival: ambulatory Limitations: no limitations History of Present Illness HPI narrative: 62-year-old male presents to the [facility] with irritation and erythema to his nasal area after trying to trim his nasal hairs. Patient reports history of infections. Uses bacitracin and a Q-tip daily to try to prevent. Similar to what he had last February. Review chart Related Data Home Medications Medication Instructions Recorded Confirmed ascorbic acid (vitamin C) 1,000 mg 1,000 mg PO DAILY 12/01/21 01/30/23 tablet chlorthalidone 25 mg tablet 25 mg PO HS 12/01/21 01/30/23 dulaglutide 1.5 mg/0.5 mL 1.5 mg subcut WEEKLY 12/01/21 01/30/23 subcutaneous pen injector (Trulicity) empagliflozin 25 mg tablet 25 mg PO DAILY 12/01/21 01/30/23 (Jardiance) escitalopram oxalate 10 mg tablet 10 mg PO HS 12/01/21 01/30/23 ferrous sulfate 325 mg (65 mg See Rx Instructions .Route .COMPLEX 12/01/21 01/30/23 iron) tablet (FeroSul) lisinopril 40 mg tablet 40 mg PO HS 12/01/21 01/30/23 metformin 1,000 mg tablet 1,000 mg PO BID 12/01/21 01/30/23 multivitamin 1 tablet PO DAILY 12/01/21 01/30/23 omeprazole 20 mg capsule,delayed 20 mg PO HS 12/01/21 01/30/23 release tramadol 50 mg tablet 150 mg PO BID 12/01/21 01/30/23 loratadine 10 mg tablet 10 mg PO DAILY PRN Allergy Symptoms 12/29/21 01/30/23 omega-3 acid ethyl esters 1 gram 1 g PO HS 12/29/21 01/30/23 capsule (Lovaza) simvastatin 40 mg tablet 40 mg PO HS 08/09/22 01/30/23 Allergies Allergy/AdvReac Type Severity Reaction Status Date / Time duloxetine [From Cymbalta] AdvReac Intermediate Insomnia Verified 01/30/23 13:57 pregabalin [From Lyrica] AdvReac Intermediate Insomnia Verified 01/30/23 13:57 Review of Systems Review of Systems: All systems reviewed & are unremarkable except as noted in HPI and below Constitutional: Constitutional: Reports no additional constitutional complaints Eyes: Eyes: Reports no additional eye complaints ENT: Reports as per HPI and Reports other Cardiovascular: Cardiovascular: Reports no additional cardiovascular complaints, Denies chest pain and Denies dyspnea Respiratory: Respiratory: Reports no additional respiratory complaints, Denies chest congestion, Denies cough and Denies dyspnea Gastrointestinal: Gastrointestinal: Reports no additional gastrointestinal complaints, Denies abdominal pain, Denies nausea and Denies vomiting Musculoskeletal: Musculoskeletal: Reports no additional musculoskeletal complaints Integumentary/Breasts: Skin/Breast: Reports system reviewed and no additional complaints, except as docu Neurologic: Reports system reviewed and no additional complaints, except as documented Psychiatric: Psychiatric: Reports no additional psychiatric complaints Allergic/Immunologic: Allergic/Immunologic: Reports no additional allergic/immunologic complaints PMFSH Past Medical History Medical History Depression Hyperlipidemia Hypertension Neuropathy Obstructive sleep apnea on CPAP Shingles Type 2 diabetes mellitus Surgical History Surgical History History of colonoscopy History of laparoscopic adjustable gastric banding (2009) History of laparoscopic cholecystectomy (05/2003) History of sinus surgery (1981) History of umbilical hernia repair (03/2008) History of wisdom tooth extraction (1984) Status post trigger finger release Family History Family History Father Heart disease Grandparent Heart disease Social History Social History Social History: He is and has 2 children. He is retired
[2023-01-30 13:53] VITALS: BP 140/73; PULSE 83; RESP 18; TEMP 35.9; O2SAT 97
== END 2023-01-30 14:22 | disposition home or self-care (01) ==
PROVIDERS: Emergency Provider Nurse Practitioner
DX: J34.0 Abscess, furuncle and carbuncle of nose (principal); Z87.891 Personal history of nicotine dependence; E78.5 Hyperlipidemia, unspecified; I10 Essential (primary) hypertension; E11.40 Type 2 diabetes mellitus with diabetic neuropathy, unspecified; Z98.84 Bariatric surgery status; F32.A Depression, unspecified
CPT/HCPCS: 99213; G0463

== ENCOUNTER 2023-03-31 10:37 | Outpatient (CLI) | payer OTHER, SELFPAY ==
[2023-03-31 11:04] LABS: Hematocrit 45.9 % (42.0-52.0); Hemoglobin 15.5 g/dL (14.0-18.0); Mean Corpuscular HGB Conc 33.8 g/dl (32-36); Mean Corpuscular Hemoglobin 28.2 pg (26-34); Mean Corpuscular Volume 83.5 fl (80-100); Mean Platelet Volume 9.8 fl (7.4-10.4); Platelet Count Result 190 k/mm3 (150-375); Red Cell Distribution Width 13.2 % (11.5-14.5); White Blood Count 7.9 K/mm3 (4.5-10.0)
[2023-03-31 11:13] LABS: Alanine Aminotransferase 60 U/L (6-50); Albumin Level 4.5 g/dL (3.5-5.1); Alkaline Phosphatase 61 U/L (38-126); Anion Gap 13 mmol/L (8-16); Aspartate Amino Transferase 42 U/L (17-59); Bilirubin,Total 1.9 mg/dL (0.2-1.3); Blood Urea Nitrogen 17 mg/dL (9-20); Calcium 9.8 mg/dL (8.4-10.2); Carbon Dioxide 26 mmol/L (22-30); Chloride 101 mmol/L (98-107); Estimated Glomerular Filt Rate > 60; Glucose 143 mg/dL (65-110); Potassium 3.7 mmol/L (3.4-5.0); Sodium 140 mmol/L (137-145)
[2023-03-31 11:43] LABS: Iron 84 ug/dL (49-181)
[2023-03-31 11:49] LABS: Bilirubin Indirect 1.6 mg/dL (0-1.1)
[2023-03-31 11:52] LABS: Percent Iron Saturation 22 % (20-50)
[2023-03-31 12:11] LABS: Hepatitis B Surface Antigen Negative (Negative)
[2023-03-31 12:17] LABS: HAV RESULT Negative (Negative); Hepatitis B Core IgM Result Negative (Negative)
[2023-03-31 12:20] LABS: Folic Acid > 20.0 ng/mL (2.76->20)
[2023-03-31 12:28] LABS: Hepatitis B Surface Anti Res Negative; Hepatitis C Virus Antibody Negative (Negative)
[2023-04-02 10:36] LABS: LKM 1 Antibody <=20.0 U (<=20.0)
[2023-04-02 12:39] LABS: Actin Antibody (IgG) <20 U (<20)
[2023-04-02 14:12] LABS: Hepatitis A Antibody Total Reactive (Nonreactive)
[2023-04-02 18:20] LABS: Mitochondrial (M2) Ab (IgG) <=20.0 U (<=20.0)
[2023-04-02 19:51] LABS: Alpha-1-Antitrypsin, QN 133 mg/dL (83-199); Ceruloplasmin 25 mg/dL (18-36); Immunoglobulin A 810 mg/dL (70-320); TTG IGA AB <1.0 U/mL (<15.0)
[2023-04-03 13:30] LABS: Anti Nuclear Antibody Titer 1:40 (Negative)
[2023-04-06 15:07] LABS: ALT 51 U/L (9-46); Alpha Fetoprotein Tumor Marker 1.3 ng/mL (<6.1); Alpha-2-Macroglobulin 262 mg/dL (106-279); Apolipoprotein A1 151 mg/dL (94-176); Fibrosis Score 0.43; Fibrosis Stage F1-F2; GGT 26 U/L (3-70); Haptoglobin 164 mg/dL (43-212); Necroinflammat Act Grade A1; Total Bilirubin 0.8 mg/dL (0.2-1.2)
== END 2023-03-31 10:38 | disposition home or self-care (01) ==
PROVIDERS: Visit Provider Nurse Practitioner
DX: D50.9 Iron deficiency anemia, unspecified (principal); E66.9 Obesity, unspecified; K74.60 Unspecified cirrhosis of liver; R74.8 Abnormal levels of other serum enzymes
CPT/HCPCS: 36415; 80053; 80074; 81596; 82103; 82105; 82248; 82390; 82607; 82728; 82746; 82784; 83520; 83540; 83550; 84443; 85027; 85610; 86038; 86039; 86364; 86376; 86706; 86708

== ENCOUNTER 2023-04-17 09:29 | Outpatient (CLI) | payer OTHER, SELFPAY ==
--- NOTE | ~2023-04-17 | US_ITS ---
EXAMINATION: US abdomen limited DATE: 04/17/2023 10:31 INDICATION: Elevated liver function tests TECHNIQUE: Multiple grayscale and Doppler ultrasound images of the abdomen were obtained. COMPARISON: CT, 08/09/2022 FINDINGS: Bowel gas obscures visualization of the pancreas. The visualized portions of the pancreas a re unremarkable. There is a 2.1 cm cyst of the left hepatic lobe. The liver is otherwise normal with normal echogenicity and echotexture. No surface nodularity. Normal hepatopetal flow in the main avery l vein. Changes of cholecystectomy are noted. The normal common bile duct measures 4 mm. IMPRESSION: 1. No sonographic correlate for the patient's symptoms. Reviewed, dictated and finalized at location F. [facility] G[facility]
== END 2023-04-17 09:30 | disposition home or self-care (01) ==
PROVIDERS: Visit Provider Nurse Practitioner
DX: R74.8 Abnormal levels of other serum enzymes (principal)
CPT/HCPCS: 76705

== ENCOUNTER 2023-07-27 02:28 | Day surgery (SDC) | payer OTHER, SELFPAY ==
[2023-06-11 12:14] VITALS: BMI 34.4
--- NOTE | 2023-06-19 08:35 | SUR.PREOP ---
Patient called regarding upcoming procedure. Voicemail left regarding appointment times.
[2023-07-17 14:14] VITALS: BMI 34.4
[2023-07-27 10:57] VITALS: BP 117/76; PULSE 90; RESP 18; TEMP 36.2; O2SAT 96
[2023-07-27 11:16] LABS: Glucose Point of Care 133 mg/dl (65-105)
[2023-07-27] MEDS: LACTATED RINGERS 1,000 ML 150 ML IV CONT (11:17)
--- NOTE | 2023-07-27 11:18 | WPDANESEPPF ---
Anes - Initial Pre Proc Eval Procedure: Operation Date: 07/27/23 14:00 Proposed Procedures p Esophagogastroduodenoscopy & Colonoscopy - Anurag Bowen MD Date/Time: 07/27/23 11:18 Surgeon: Anurag Bowen MD Pre Op Diagnosis: Iron Deficiency Anemia,Alanis's Esophagus,GERD Patient Data Age: 63 Gender: M Height: 1.78 m Weight: 108.4 kg Last Vital Signs Temp 97.1 F L 07/27/23 10:57 Pulse 90 07/27/23 10:57 Resp 18 07/27/23 10:57 BP 117/76 07/27/23 10:57 Pulse Ox 96 07/27/23 10:57 O2 Del Method Room Air 07/27/23 10:57 Allergies Allergy/AdvReac Type Severity Reaction Status Date / Time duloxetine [From Cymbalta] AdvReac Intermediate Insomnia Verified 07/27/23 10:56 pregabalin [From Lyrica] AdvReac Intermediate Insomnia Verified 07/27/23 10:56 Home Medications Medication Instructions Recorded Confirmed Type ascorbic acid (vitamin C) 1,000 mg 1,000 mg PO DAILY 12/01/21 06/11/23 History tablet chlorthalidone 25 mg tablet 25 mg PO HS 12/01/21 06/11/23 History dulaglutide 1.5 mg/0.5 mL 1.5 mg subcut WEEKLY 12/01/21 06/11/23 History subcutaneous pen injector (Trulicity) empagliflozin 25 mg tablet 25 mg PO DAILY 12/01/21 06/11/23 History (Jardiance) escitalopram oxalate 10 mg tablet 10 mg PO HS 12/01/21 06/11/23 History ferrous sulfate 325 mg (65 mg See Rx Instructions .Route .COMPLEX 12/01/21 06/11/23 History iron) tablet (FeroSul) lisinopril 40 mg tablet 40 mg PO HS 12/01/21 06/11/23 History metformin 1,000 mg tablet 1,000 mg PO BID 12/01/21 06/11/23 History multivitamin 1 tablet PO DAILY 12/01/21 06/11/23 History omeprazole 20 mg capsule,delayed 20 mg PO HS 12/01/21 06/11/23 History release tramadol 50 mg tablet 150 mg PO BID 12/01/21 06/11/23 History loratadine 10 mg tablet 10 mg PO DAILY PRN Allergy Symptoms 12/29/21 06/11/23 History omega-3 acid ethyl esters 1 gram 1 g PO HS 12/29/21 06/11/23 History capsule (Lovaza) potassium chloride 20 mEq 20 meq PO DAILY #7 tabs 08/11/22 06/11/23 Rx tablet,extended release mupirocin 2 % topical ointment 1 applic topical BID #15 grams 01/30/23 06/11/23 Rx Laboratory Tests 07/27/23 11:13 POC Capillary Glucose 133 H mg/dl (65-105) Patient hx anesthesia problems: none Family hx anesthesia problems: none Results Review: All pre-operative results and documents have been reviewed as part of the pre-operative evaluation. [facility] Past Medical History Medical History (Updated 05/27/23 @ 16:17 by Cristy Garcia, BAKE ROOM WORKER) Abdominal pain Barretts esophagus Depression Elevated liver enzymes GERD (gastroesophageal reflux disease) [place] disease Hepatic steatosis Hyperlipidemia Hypertension FACUNDO (iron deficiency anemia) Neuropathy Obesity Obstructive sleep apnea on CPAP Shingles Total bilirubin, elevated Type 2 diabetes mellitus Surgical History Surgical History History of colonoscopy History of laparoscopic adjustable gastric banding (2009) History of laparoscopic cholecystectomy (05/2003) History of sinus surgery (1981) History of umbilical hernia repair (03/2008) History of wisdom tooth extraction (1984) Status post trigger finger release Family History Family History Father Heart disease Grandparent Heart disease Social History Social History Social History: He is and has 2 children. He is retired. Surrogate medical decision maker: Jacqueline Renner, spouse. Code status: Full code. Smoking packs per day: 1 Smoking cigarettes per day: 20.0 Years smoked: 8 Smoking pack-years: 8.00 Smoking status: Former smoker Tobacco type: cigarettes Smoking end date: 03/30/88 Alcohol intake: never Alcohol use details: Rare alcohol use. Substance use: never Substance use type: does not use Lack
--- NOTE | 2023-07-27 11:36 | PM.HPGS ---
History of Present Illness History of Present Illness Consent: Risks, benefits, and alternatives have been discussed and questions answered. Patient agrees to proceed with procedure. Chief complaint: Iron Deficiency Anemia,Alanis's Esophagus,GERD Narrative: Govind Renner III is a 63 year old male with mild FACUNDO but repeat h/h normal after using iron, last colonoscopy 2020 with small TA polyp removed. No overt gib Review of Systems Review of Systems: All systems reviewed & are unremarkable except as noted in HPI and below PMFSH Past Medical History Medical History (Updated 05/27/23 @ 16:17 by Cristy Garcia, PLATFORM ARCHITECT) Abdominal pain Barretts esophagus Depression Elevated liver enzymes GERD (gastroesophageal reflux disease) [place] disease Hepatic steatosis Hyperlipidemia Hypertension FACUNDO (iron deficiency anemia) Neuropathy Obesity Obstructive sleep apnea on CPAP Shingles Total bilirubin, elevated Type 2 diabetes mellitus Surgical History Surgical History History of colonoscopy History of laparoscopic adjustable gastric banding (2009) History of laparoscopic cholecystectomy (05/2003) History of sinus surgery (1981) History of umbilical hernia repair (03/2008) History of wisdom tooth extraction (1984) Status post trigger finger release Family History Family History Father Heart disease Grandparent Heart disease Social History Social History Social History: He is and has 2 children. He is retired. Surrogate medical decision maker: Jacqueline Renner, spouse. Code status: Full code. Smoking packs per day: 1 Smoking cigarettes per day: 20.0 Years smoked: 8 Smoking pack-years: 8.00 Smoking status: Former smoker Tobacco type: cigarettes Smoking end date: 03/30/88 Alcohol intake: never Alcohol use details: Rare alcohol use. Substance use: never Substance use type: does not use Lack of Transportation: No Lack of Food: Never True Current Housing: I Have Housing Concerned About Future Housing: No Difficulty Paying Gas/Electric Bills: No Difficulty Paying for Meds: No Currently Unemployed: No Education: Associate Degree Difficulty w/ Childcare or Family Care: No Living arrangements: with family Additional living arrangements comments: Lives in [place] with . Additional occupation/education comments: Works in [place] at [employer]. Spiritual care concerns: No Meds Home Medications and Allergies Home Medications Medication Instructions Recorded Confirmed Type ascorbic acid (vitamin C) 1,000 mg 1,000 mg PO DAILY 12/01/21 06/11/23 History tablet chlorthalidone 25 mg tablet 25 mg PO HS 12/01/21 06/11/23 History dulaglutide 1.5 mg/0.5 mL 1.5 mg subcut WEEKLY 12/01/21 06/11/23 History subcutaneous pen injector (Trulicity) empagliflozin 25 mg tablet 25 mg PO DAILY 12/01/21 06/11/23 History (Jardiance) escitalopram oxalate 10 mg tablet 10 mg PO HS 12/01/21 06/11/23 History ferrous sulfate 325 mg (65 mg See Rx Instructions .Route .COMPLEX 12/01/21 06/11/23 History iron) tablet (FeroSul) lisinopril 40 mg tablet 40 mg PO HS 12/01/21 06/11/23 History metformin 1,000 mg tablet 1,000 mg PO BID 12/01/21 06/11/23 History multivitamin 1 tablet PO DAILY 12/01/21 06/11/23 History omeprazole 20 mg capsule,delayed 20 mg PO HS 12/01/21 06/11/23 History release tramadol 50 mg tablet 150 mg PO BID 12/01/21 06/11/23 History loratadine 10 mg tablet 10 mg PO DAILY PRN Allergy Symptoms 12/29/21 06/11/23 History omega-3 acid ethyl esters 1 gram 1 g PO HS 12/29/21 06/11/23 History capsule (Lovaza) potassium chloride 20 mEq 20 meq PO DAILY #7 tabs 08/11/22 06/11/23 Rx tablet,extended release mupirocin 2 % topical ointment 1 applic topical BID #15 grams 01/30/23 06/11/23 Rx Aller
--- NOTE | 2023-07-27 11:55 | SUR.OPER ---
EGD ended 115 colonoscopy started 115
[2023-07-27 12:13] VITALS: BP 112/70; PULSE 75; RESP 20; O2SAT 99
[2023-07-27 12:23] VITALS: BP 108/71; PULSE 79; RESP 20; O2SAT 99
[2023-07-27 12:33] VITALS: BP 106/71; PULSE 77; RESP 26; O2SAT 95
== END 2023-07-27 12:43 | disposition home or self-care (01) ==
PROVIDERS: Visit Provider Internal Medicine Gastroenterology
PROC: 0DJ08ZZ Inspection of Upper Intestinal Tract, Via Natural or Artificial Opening Endoscopic (ICD-10-PCS; CPT 43235; principal; 2023-07-27 14:00)
DX: K21.00 Gastro-esophageal reflux disease with esophagitis, without bleeding (principal); K22.70 Barrett's esophagus without dysplasia; K29.50 Unspecified chronic gastritis without bleeding; K64.8 Other hemorrhoids; K57.30 Diverticulosis of large intestine without perforation or abscess without bleeding; D12.2 Benign neoplasm of ascending colon; D50.9 Iron deficiency anemia, unspecified; F32.A Depression, unspecified; E80.4 Gilbert syndrome; E78.5 Hyperlipidemia, unspecified; I10 Essential (primary) hypertension; G47.33 Obstructive sleep apnea (adult) (pediatric); Z99.89 Dependence on other enabling machines and devices; E11.9 Type 2 diabetes mellitus without complications; E66.9 Obesity, unspecified; Z68.34 Body mass index [BMI] 34.0-34.9, adult; Z79.85 Long-term (current) use of injectable non-insulin antidiabetic drugs; Z79.84 Long term (current) use of oral hypoglycemic drugs; Z98.890 Other specified postprocedural states; Z98.84 Bariatric surgery status; Z90.49 Acquired absence of other specified parts of digestive tract; Z87.891 Personal history of nicotine dependence; Z86.010 Personal history of colon polyps; Z82.49 Family history of ischemic heart disease and other diseases of the circulatory system
CPT/HCPCS: 43239; 45385; 82948; 88305; J2371; J2704; J7120

== ENCOUNTER 2023-08-13 11:19 | Observation (INO) | payer OTHER, SELFPAY ==
[2023-08-13] VITALS (35 sets, daily range): BP systolic 108–130; BP diastolic 51–81; PULSE 65–87; RESP 14–24; TEMP 36.4–36.6; O2SAT 92–97; BMI 35.4
--- NOTE | ~2023-08-13 | XR_ITS ---
EXAMINATION: XR chest 2V DATE: 08/13/2023 11:59 INDICATION: Chest pain TECHNIQUE: PA and lateral views of the chest were obtained. COMPARISON: Chest radiograph head CT dated 08/09/2022 FINDINGS: Mild opacities at the lateral left lower lung zone on the frontal projection which appears to result from a small left pericardial fat pad and mild atelectasis/scarring in the lingula. No other airspace opacities, pulmonary edema, pleural effusion or pneumothorax. Heart size is normal. Cholecystectomy clips in right upper quadrant. Expected appearance of adjustable gastric banding with associated cath eter. IMPRESSION: 1. Small left paracardial fat pad and associated lingular atelectasis/scarring. No other acute cardio pulmonary disease. Reviewed, dictated and finalized at location A. IMPRESSION: 1. Small left paracardial fat pad and associated lingular atelectasis/scarring. No other acute cardiopulmonary disease.
--- NOTE | 2023-08-13 11:21 | ECG_ITS ---
SEE SCANNED COPY FOR CONFIRMED REPORT MTDD
[2023-08-13] MEDS: ASPIRIN 81 MG CHEWABLE TABLET 324 MG PO (11:39)
[2023-08-13 11:40] LABS: Basophils Absolute Auto 0.1 K/mm3 (0.0-0.1); Basophils Percent Auto 0.6 % (0.2-1.2); Eosinophils Absolute Auto 0.1 K/mm3 (0-0.3); Eosinophils Percent Auto 1.1 % (0-4.4); Hematocrit 46.4 % (42.0-52.0); Hemoglobin 16.1 g/dL (14.0-18.0); Immature Granulocyte Absolute 0.04 K/mm3 (0.00-0.031); Immature Granulocyte Percent A 0.3 % (0-0.5); Lymphocytes Absolute Auto 1.36 K/mm3 (0.9-3.2); Lymphocytes Percent Auto 10.7 % (18.3-44.2); Mean Corpuscular HGB Conc 34.7 g/dl (32-36); Mean Corpuscular Hemoglobin 29.2 pg (26-34); Mean Corpuscular Volume 84.2 fl (80-100); Mean Platelet Volume 9.7 fl (7.4-10.4); Monocytes Absolute Auto 0.8 K/mm3 (0.1-0.6); Neutrophils Absolute Auto 10.3 K/mm3 (1.3-6.7); Neutrophils Percent Auto 81.3 % (45.5-73.1); Platelet Count Result 220 k/mm3 (150-375); Red Blood Count 5.51 M/mm3 (4.6-6.20); Red Cell Distribution Width 13.1 % (11.5-14.5); White Blood Count 12.7 K/mm3 (4.5-10.0)
[2023-08-13 11:54] LABS: INR 0.9; Prothrombin Time 12.7 Seconds (11.1-14.7)
[2023-08-13 11:55] LABS: Alanine Aminotransferase 65 U/L (6-50); Albumin Level 5.1 g/dL (3.5-5.1); Alkaline Phosphatase 65 U/L (38-126); Anion Gap 12 mmol/L (4-12); Aspartate Amino Transferase 37 U/L (17-59); Bilirubin,Total 2.3 mg/dL (0.2-1.3); Blood Urea Nitrogen 22 mg/dL (9-20); Carbon Dioxide 27 mmol/L (22-30); Chloride 101 mmol/L (98-107); Estimated CRCL calculation 93 ml/min; Estimated Glomerular Filt Rate > 60; Glucose 148 mg/dL (65-110); Lipase 137 U/L (23-300); Partial Thromboplastin Time 24.9 Seconds (22.3-36.8); Potassium 3.5 mmol/L (3.4-5.0); Sodium 140 mmol/L (137-145)
--- NOTE | 2023-08-13 12:02 | ED.CHESTPAIN ---
HPI - Chest Pain General Chief Complaint: Chest Pain Stated Complaint: chest pains Time Seen by Provider: 08/13/23 11:37 History of Present Illness HPI narrative: This is a 63-year-old male, with history of hypertension, and diabetes who presents emergency department complaining of left-sided chest pain that began this morning. The patient states he was at rest at work, when he felt quick onset pressure-like chest pain rated 7/10 with radiation to the left arm. He denies associated nausea, vomiting or shortness of breath. He did not ambulate for fear of worsening of his pain. He states he has a family history of coronary artery disease in both his father and paternal uncle. He has no other complaints at this time. Related Data Home Medications Medication Instructions Recorded Confirmed ascorbic acid (vitamin C) 1,000 mg 1,000 mg PO DAILY 12/01/21 08/13/23 tablet chlorthalidone 25 mg tablet 25 mg PO HS 12/01/21 08/13/23 dulaglutide 1.5 mg/0.5 mL 1.5 mg subcut WEEKLY 12/01/21 08/13/23 subcutaneous pen injector (Trulicity) empagliflozin 25 mg tablet 25 mg PO HS 12/01/21 08/13/23 (Jardiance) escitalopram oxalate 10 mg tablet 10 mg PO HS 12/01/21 08/13/23 ferrous sulfate 325 mg (65 mg 325 mg PO EVERY OTHER DAY 12/01/21 08/13/23 iron) tablet (FeroSul) lisinopril 40 mg tablet 40 mg PO HS 12/01/21 08/13/23 metformin 1,000 mg tablet 1,000 mg PO BID 12/01/21 08/13/23 multivitamin 1 tablet PO DAILY 12/01/21 08/13/23 tramadol 50 mg tablet 150 mg PO BID 12/01/21 08/13/23 loratadine 10 mg tablet 10 mg PO DAILY PRN Allergy Symptoms 12/29/21 08/13/23 omega-3 acid ethyl esters 1 gram 1 g PO HS 12/29/21 08/13/23 capsule (Lovaza) mupirocin 2 % topical ointment 1 applic topical BID PRN nasal 08/13/23 08/13/23 trimming potassium chloride 20 mEq 20 meq PO DAILY 08/13/23 08/13/23 tablet,extended release rosuvastatin 20 mg tablet 20 mg PO DAILY 08/13/23 08/13/23 Allergies Allergy/AdvReac Type Severity Reaction Status Date / Time duloxetine [From Cymbalta] AdvReac Intermediate Insomnia Verified 08/13/23 13:51 pregabalin [From Lyrica] AdvReac Intermediate Insomnia Verified 08/13/23 13:51 Review of Systems Review of Systems: All systems reviewed & are unremarkable except as noted in HPI and below PMFSH Past Medical History Medical History Abdominal pain Barretts esophagus Depression Elevated liver enzymes GERD (gastroesophageal reflux disease) [place] disease Hepatic steatosis Hyperlipidemia Hypertension FACUNDO (iron deficiency anemia) Neuropathy Obesity Obstructive sleep apnea on CPAP Shingles Total bilirubin, elevated Type 2 diabetes mellitus Surgical History Surgical History History of colonoscopy History of laparoscopic adjustable gastric banding (2009) History of laparoscopic cholecystectomy (05/2003) History of sinus surgery (1981) History of umbilical hernia repair (03/2008) History of wisdom tooth extraction (1984) Status post trigger finger release Family History Family History Father Heart disease Grandparent Heart disease Social History Social History Social History: He is and has 2 children. He is retired. Surrogate medical decision maker: Jacqueline Renner, spouse. Code status: Full code. Smoking packs per day: 1 Smoking cigarettes per day: 20.0 Years smoked: 8 Smoking pack-years: 8.00 Smoking status: Former smoker Tobacco type: cigarettes Smoking end date: 03/30/88 Alcohol intake: never Alcohol use details: Rare alcohol use. Substance use: never Substance use type: does not use Lack of Transportation: No Lack of Food: Never True Current Housing: I Have Housing Concerned About Future Housing: No Difficulty Paying Gas/Electric Bills
[2023-08-13 12:05] LABS: Troponin I < 0.012 ng/mL (0.000-0.034)
[2023-08-13] MEDS: MORPHINE SULFATE (*CRX) 4 MG/ML INJ IV PUSH (12:09)
[2023-08-13] MEDS: NITROGLYCERIN SL 0.4 MG TABLET SUBLINGUAL ×2 (12:31→21:07)
--- NOTE | 2023-08-13 12:41 | PC.NURSE ---
nitro X2 given
--- NOTE | 2023-08-13 14:12 | ADMGEN ---
This patient, Govind Renner III, was admitted to [facility]. Patient/family oriented to hospital policies and general routines including ID bracelet, bed and alarms, visiting hours, pain management, procedures, bathroom and other care routines, personal items, smoking policy, room service/diet, and visiting hours. Information on how to activate the Rapid Response Team has been discussed. Patient/Family are encouraged to report perceived risks to care and to ask questions if they do not understand what they are told or what they should do.
[2023-08-13 16:02] LABS: Troponin I < 0.012 ng/mL (0.000-0.034)
[2023-08-13 17:12] LABS: Glucose Point of Care 153 mg/dl (65-105)
[2023-08-13 18:16] LABS: Troponin I < 0.012 ng/mL (0.000-0.034)
--- NOTE | 2023-08-13 18:45 | PM.IMHP ---
H&P: HPI History of Present Illness Date/Time: 08/13/23 21:00 Chief Complaint: Chest Pain Narrative: 63 y/o M presents here with chest pain with PMH of Alanis's esophagus, GERD, [place]'s disease, HLD, HTN, FACUNDO, LESLYE on CPAP, and diabetes. Patient presented here with left-sided chest pain that began around 9:30 a.m. this morning while he was in a stressful meeting and after he sat down to continue working the pain started. Patient describes the pain as left-sided, sharp, 8/10, with radiation into his LUE and left jaw/chin, constant, aggravated by talking (would vibrate/pulse) as well as deep breaths, and alleviated by nitro SL x2. Upon arrival to the ED it had partially resolve and had more of a dull quality, 4/10. Endorses associated nausea and shortness of breath. Denying pre-syncope, diaphoresis, palpations, or tachycardia. No recent illnesses. Does report some RUE discomfort last night that he attributed to sleeping on extremity wrong. No personal history of coronary artery disease, however has familial history of CAD (paternal grandfather ( at 73 due to [place]), father (x1 [place], 59) and paternal uncle (IN x4, at 45 due to [place]). Does not follow with surveyor. Previously had a stress test x2, most recent 6-7 years ago. Since initial evaluation patient's LUE discomfort returned, was previously resolved with nitro, and additional nitro dose given with subsequent relief. No recurrent chest discomfort. Initial VS at presentation: 97.6? F, HR 83, RR 19, 127/81, and 97% on RA. ED workup showed: WBC 12.7, no anemia, no significant electrolyte derangements, creatinine 0.9 and GFR >60, glucose 148, total bilirubin 2.3, ALT 65, and initial troponin negative. CXR shows small left pericardial fat pad and associated lingular atelectasis/scarring. Review of Systems Review of Systems: All systems reviewed & are unremarkable except as noted in HPI and below PMFSH Past Medical History Medical History Abdominal pain Barretts esophagus Depression Elevated liver enzymes GERD (gastroesophageal reflux disease) [place] disease Hepatic steatosis Hyperlipidemia Hypertension FACUNDO (iron deficiency anemia) Neuropathy Obesity Obstructive sleep apnea on CPAP Shingles Total bilirubin, elevated Type 2 diabetes mellitus Surgical History Surgical History History of colonoscopy History of laparoscopic adjustable gastric banding (2009) History of laparoscopic cholecystectomy (05/2003) History of sinus surgery (1981) History of umbilical hernia repair (03/2008) History of wisdom tooth extraction (1984) Status post trigger finger release Family History Family History Father Heart disease Grandparent Heart disease Cancer Grandparent No problems noted. Social History Social History Social History: He is and has 2 children. He is retired. Surrogate medical decision maker: Jacqueline Renner, spouse. Code status: Full code. Smoking packs per day: 1 Smoking cigarettes per day: 20.0 Years smoked: 8 Smoking pack-years: 8.00 Smoking status: Former smoker Tobacco type: cigarettes Second hand tobacco smoke exposure: Yes Smoking end date: 03/30/88 Alcohol intake: former Alcohol use details: Rare alcohol use. Substance use: never Substance use type: does not use Do You Feel Safe in your Home?: Yes Lack of Transportation: No Lack of Food: Never True Current Housing: I Have Housing Concerned About Future Housing: No Difficulty Paying Gas/Electric Bills: No Difficulty Paying for Meds: No Currently Unemployed: No Education: Associate Degree Difficulty w/ Childcare or Family Care: No Living arrangements: with family Additional living arrangements comments: Lives
[2023-08-13 20:37] LABS: Glucose Point of Care 155 mg/dl (65-105)
[2023-08-13] MEDS: lisinopriL 20 MG TABLET 40 MG PO (20:50)
[2023-08-13] MEDS: EMPAGLIFLOZIN 25 MG TABLET PO (20:50)
[2023-08-13] MEDS: OMEGA 3 POLYUNSAT FATTY ACIDS 1 GM CAP 4 GM PO (20:50)
[2023-08-13] MEDS: ESCITALOPRAM OXALATE 10 MG TABLET PO (20:50)
[2023-08-13] MEDS: CHLORTHALIDONE 25 MG TABLET PO (20:50)
[2023-08-13] MEDS: PANTOPRAZOLE 40 MG TABLET PO (20:50)
[2023-08-13] MEDS: INSULIN GLARGINE (*BKC) 100 UNITS/ML 17 UNITS SUB-Q (20:55)
[2023-08-14] VITALS (9 sets, daily range): BP systolic 113–126; BP diastolic 42–72; PULSE 62–88; RESP 16–19; TEMP 36.4–36.8; O2SAT 93–99
--- NOTE | 2023-08-14 | ECHO_ITS ---
Patient Info Name: Govind Renner Age: 63 years : 1960 Gender: Male Ht: 70 in Wt: 246 lbs BSA: 2.39 m2 HR: 74 bpm Heart Rhythm: Sinus Rhythm Technical Quality: Fair Exam Date: 08/14/2023 11:30 AM Exam Location: Echo Lab Patient Status: Inpatient Admit Date: 08/13/2023 Staff Ordering Physician: Marie Butt Pastrycook: Baldemar Melvin RDCS Attending Provider: Cheri Klein MD Referring Physician: Filomena TAY; Exam Type: CA echo doppler color flow Study Info Indications R07.89 - Other chest pain Complete two-dimensional, color flow and Doppler transthoracic echocardiogram is performed. Summary 1. Complete two-dimensional, color flow and Doppler transthoracic echocardiogram is performed. 2. Left ventricular chamber dimension is normal. 3. Left ventricular systolic function is normal, estimated at 65-70%. 4. The left ventricular diastolic function is grade I diastolic dysfunction. 5. Right ventricular systolic function is normal. 6. There is mild aortic valve regurgitation. 7. There is mild pulmonic regurgitation. Left Ventricle Left ventricular chamber dimension is normal. Left ventricular systolic function is normal, estimated at 65-70%. There is no increased left ventricular wall thickness. The left ventricular diastolic function is grade I diastolic dysfunction. Right Ventricle Right ventricular chamber dimension is normal. Right ventricular systolic function is normal. Left Atria Left atrial chamber dimension is normal. Right Atria Right atrial chamber dimension is normal. Aortic Valve The aortic valve is trileaflet. There is mild aortic valve sclerosis. There is no aortic valve stenosis. There is mild aortic valve regurgitation. Pulmonic Valve The pulmonic valve is not well visualized. There is mild pulmonic regurgitation. Mitral Valve There is trace mitral valve regurgitation. Tricuspid Valve There is trace tricuspid valve regurgitation. Pericardium/Pleural There is no pericardial effusion. Inferior Vena Cava Normal inferior vena cava with >50% collapse upon inspiration consistent with normal right atrial pressure, 3 mmHg. Aorta The aortic root size at the sinus of Valsalva is normal. Left Ventricular Outflow Tract Name Value Normal LVOT 2D LVOT Diameter 2.0 cm LVOT Doppler LVOT Peak Gradient 5 mmHg LVOT Mean Gradient 3 mmHg LVOT VTI 20 cm LVOT VTI/AV VTI Ratio 1.0 LVOT Stroke Volume 62 ml LVOT CO 4.4 l/min LVOT CI 1.8 l/min/m2 Pulmonic Valve Name Value Normal RVOT Doppler RVOT Peak Gradient 3 mmHg PV Doppler PV Peak Gradient 4 mmHg PV Regurgitation Dopple
[2023-08-14 05:11] LABS: Anion Gap 10 mmol/L (4-12); Blood Urea Nitrogen 21 mg/dL (9-20); Calcium 9.2 mg/dL (8.4-10.2); Carbon Dioxide 30 mmol/L (22-30); Chloride 100 mmol/L (98-107); Estimated CRCL calculation 77 ml/min; Estimated Glomerular Filt Rate > 60; Glucose 143 mg/dL (65-110); Potassium 3.2 mmol/L (3.4-5.0); Sodium 140 mmol/L (137-145)
[2023-08-14 05:30] LABS: Basophils Absolute Auto 0.1 K/mm3 (0.0-0.1); Basophils Percent Auto 0.8 % (0.2-1.2); Eosinophils Absolute Auto 0.1 K/mm3 (0-0.3); Eosinophils Percent Auto 1.6 % (0-4.4); Hematocrit 44.9 % (42.0-52.0); Hemoglobin 15.1 g/dL (14.0-18.0); Immature Granulocyte Absolute 0.02 K/mm3 (0.00-0.031); Immature Granulocyte Percent A 0.2 % (0-0.5); Lymphocytes Percent Auto 11.8 % (18.3-44.2); Mean Corpuscular HGB Conc 33.6 g/dl (32-36); Mean Corpuscular Hemoglobin 29.2 pg (26-34); Mean Corpuscular Volume 86.7 fl (80-100); Mean Platelet Volume 10.1 fl (7.4-10.4); Monocytes Absolute Auto 0.7 K/mm3 (0.1-0.6); Monocytes Percent Auto 8.4 % (2.6-8.5); Neutrophils Absolute Auto 6.6 K/mm3 (1.3-6.7); Neutrophils Percent Auto 77.2 % (45.5-73.1); Platelet Count Result 192 k/mm3 (150-375); Red Blood Count 5.18 M/mm3 (4.6-6.20); Red Cell Distribution Width 13.1 % (11.5-14.5); White Blood Count 8.5 K/mm3 (4.5-10.0)
[2023-08-14] MEDS: ASPIRIN 81 MG ENTERIC TABLET PO (08:45)
[2023-08-14] MEDS: POTASSIUM CHLORIDE 20 MEQ ER TABLET PO (08:45)
[2023-08-14] MEDS: ASCORBIC ACID 500 MG TABLET 1000 MG PO (08:45)
[2023-08-14] MEDS: MULTIVITAMINS THERAPEUTIC TAB (*BKC) 1 TABLET PO (08:45)
[2023-08-14] MEDS: FERROUS SULFATE 325 MG TABLET DR PO (08:45)
[2023-08-14] MEDS: INSULIN ASPART (*BKC) 100 UNITS/ML 6 UNITS SUB-Q (08:46)
[2023-08-14] MEDS: ROSUVASTATIN 20 MG TABLET PO (08:46)
[2023-08-14 09:56] LABS: Glucose Point of Care 237 mg/dl (65-105)
--- NOTE | 2023-08-14 11:13 | PM.CNCAR ---
Assessment and Plan Assessment and plan (1) Chest pain: Qualifiers: Chest pain type: unspecified Qualified Code(s): R07.9 - Chest pain, unspecified Code(s): R07.9 - Chest pain, unspecified Status: Acute Assessment and Plan: Atypical sounding chest pain. Occurred at rest after a stressful meeting at work. However, pain did radiate to left arm and was nitro responsive. He does have multiple risk factors for CAD including HTN, HLD, DM, and family history. There is no objective evidence of ACS/plaque rupture with negative serial troponin levels, EKG with no acute STTW changes. Nevertheless, preference would be to perform stress test today, however, patient has eaten and he drank caffeine so we are unable to do any stress testing. He is unable to stay in the hospital over the weekend because he is closing on a house out of town. Will order an echo and if he does not have any WMA or systolic dysfunction he can be discharged with a plan to order outpatient CCTA. (2) Hyperlipidemia: Code(s): E78.5 - Hyperlipidemia, unspecified Status: Acute Assessment and Plan: Continue statin (3) Hypertension: Code(s): I10 - Essential (primary) hypertension Status: Acute Assessment and Plan: At goal. History of Present Illness History of Present Illness Consult date/time: 08/14/23 11:13 Requesting physician: Elisabet King APRN Consult reason: chest pain Reason For Visit: chest pain Narrative: Govind Renner is a 63 year old man with hypertension, hyperlipidemia, type II diabetes mellitus, GERD, and LESLYE on CPAP. He comes to the hospital with a chief complaint of chest pain. Patient describes having a stressful meeting at work and about 15 minutes following the meeting he began to experience chest pain he describes as feeling like my chest was going to explode. the pain radiated to his left arm and neck as well. He had associated shortness of breath but no palpitations, diaphoresis. He was brought to the emergency department by his and by the time he arrived here the pain had improved significantly but was still present. Pain subsided with nitroglycerin administration. He has not had recurrence of chest pain since hospital admission but did have an episode of left arm pain for which he was given nitroglycerin with resolution of pain. Currently, he is lying comfortably in bed with no complaints. Review of Systems Review of Systems: All systems reviewed & are unremarkable except as noted in HPI and below PMFSH Past Medical History Medical History Abdominal pain Barretts esophagus Depression Elevated liver enzymes GERD (gastroesophageal reflux disease) [place] disease Hepatic steatosis Hyperlipidemia Hypertension FACUNDO (iron deficiency anemia) Neuropathy Obesity Obstructive sleep apnea on CPAP Shingles Total bilirubin, elevated Type 2 diabetes mellitus Surgical History Surgical History History of colonoscopy History of laparoscopic adjustable gastric banding (2009) History of laparoscopic cholecystectomy (05/2003) History of sinus surgery (1981) History of umbilical hernia repair (03/2008) History of wisdom tooth extraction (1984) Status post trigger finger release Family History Family History Father Heart disease Grandparent Heart disease Cancer Grandparent No problems noted. Social History Social History Social History: He is and has 2 children. He is retired. Surrogate medical decision maker: Jacqueline Renner, spouse. Code status: Full code. Smoking packs per day: 1 Smoking cigarettes per day: 20.0 Years smoked: 8 Smoking pack-years: 8.00 Smoking status: Former smoker Tobacco type: cigarettes
[2023-08-14 12:12] LABS: Glucose Point of Care 134 mg/dl (65-105)
--- NOTE | 2023-08-14 14:13 | PM.DS ---
DS: Admitting Diagnosis Discharge Date August 14, 2023 Admitting Diagnosis Chest pain DS: Discharge Diagnosis Discharge Diagnosis (1) Chest pain: Qualifiers: Chest pain type: unspecified Qualified Code(s): R07.9 - Chest pain, unspecified Code(s): R07.9 - Chest pain, unspecified Status: Acute DS: Summary Hospital Course Hospital Course: 63-year-old male with a past medical history obesity, LESLYE on CPAP, wyq-ylfdefu-[id number] diabetes, Alanis's esophagus, GERD, Gilbert's disease, hyperlipidemia, hypertension, iron deficiency anemia presents with chest pain that began around 9:30 a.m. on 08/13/2023. He described it as left-sided sharp 8/10 with radiation into his left upper extremity and left jaw and chin which was constant and aggravated by talking as well as deep breaths. Was alleviated by nitroglycerin sublingual x2. Upon arrival to the ER and had partially resolved and become more of a dull quality. It was associated with nausea and shortness of breath. He has no history of coronary artery disease but there is family history. He has stress test x2 with the most recent being 6-7 years ago. On the 2nd day of admission on 08/13 his chest pain had resolved. Cardiology consultation completed. Surface echocardiogram adducted demonstrating a grade 1 diastolic dysfunction. Unable to perform stress test due to the patient having eaten and he did now want to stay over the weekend because he is closing on a house out of town. After further discussion with Cardiology the plan to have him follow-up and order an outpatient see [facility]. He is discharged on 08/13 in stable condition with follow-up. He takes rosuvastatin. Adding a baby aspirin daily. The patient was full code during the admission. Time Spent with Patient Time attestation: Total time spent providing and/or coordinating discharge services: Exam Const: General: cooperative and no acute distress Resp: Effort & Inspection: normal respiratory effort Auscultation: clear to auscultation bilaterally Cardio: Rate: regular rate Rhythm: regular rhythm Heart sounds: S1 normal heart sound present and S2 normal heart sound present GI: GI Palp: No abdominal tenderness Auscultation: normal bowel sounds DS: Data Data Completed and Pending Labs on day of discharge: Labs from last 24 hours 08/14/23 08/14/23 08/14/23 12:10 08:35 04:37 WBC 8.5 RBC 5.18 Hgb 15.1 Hct 44.9 MCV 86.7 MCH 29.2 MCHC 33.6 RDW 13.1 Plt Count 192 MPV 10.1 Immature Gran % (Auto) 0.2 Neut % (Auto) 77.2 H Lymph % (Auto) 11.8 L Sanders % (Auto) 8.4 Eos % (Auto) 1.6 Baso % (Auto) 0.8 Lymph # (Auto) 1.00 Sanders # (Auto) 0.7 H Eos # (Auto) 0.1 Baso # (Auto) 0.1 Abs Immat Gran (auto) 0.02 Absolute Neuts (auto) 6.6 Absolute Nucleated RBC 0.000 Nucleated RBC % 0.0 Sodium 140 Potassium 3.2 L Chloride 100 Carbon Dioxide 30 Anion Gap 10 BUN 21 H Creatinine 1.10 Estim Creat Clear Calc 77 Estimated GFR > 60 Glucose 143 H POC Capillary Glucose 134 H 237 H Calcium 9.2 Troponin I 08/13/23 08/13/23 08/13/23 20:34 17:49 17:09 WBC RBC Hgb Hct MCV MCH MCHC RDW Plt Count MPV Immature Gran % (Auto) Neut % (Auto) Lymph % (Auto) Sanders % (Auto) Eos % (Auto) Baso % (Auto) Lymph # (Auto) Sanders # (Auto) Eos # (Auto) Baso # (Auto) Abs Immat Gran (auto) Absolute Neuts (auto) Absolute Nucleated RBC Nucleated RBC % Sodium Potassium Chloride Carbon Dioxide Anion Gap BUN Creatinine Estim Creat Clear Calc Estimated GFR Glucose POC Capillary Glucose 155 H 153 H Calcium Troponin I < 0.012 08/13/23 15:11 WBC RBC Hgb Hct MCV MCH MCHC RDW Plt Count MPV Immature Gran % (Auto) Neut % (Auto) Lymph % (Auto) Sanders % (Auto) E
== END 2023-08-14 14:20 | disposition home or self-care (01) ==
LOC: ANHED 12:51 → ANHIMU 15:34
PROVIDERS: Admitting Provider Family Medicine; Emergency Provider Preventive Medicine Aerospace Medicine; Visit Provider General Practice
DX: R07.9 Chest pain, unspecified (principal); I10 Essential (primary) hypertension; E11.9 Type 2 diabetes mellitus without complications; E78.5 Hyperlipidemia, unspecified; G47.33 Obstructive sleep apnea (adult) (pediatric); K21.9 Gastro-esophageal reflux disease without esophagitis; E80.4 Gilbert syndrome; E11.40 Type 2 diabetes mellitus with diabetic neuropathy, unspecified; F32.A Depression, unspecified; K76.0 Fatty (change of) liver, not elsewhere classified; D50.9 Iron deficiency anemia, unspecified; Z82.49 Family history of ischemic heart disease and other diseases of the circulatory system; Z79.85 Long-term (current) use of injectable non-insulin antidiabetic drugs; Z79.84 Long term (current) use of oral hypoglycemic drugs; E66.9 Obesity, unspecified; Z68.35 Body mass index [BMI] 35.0-35.9, adult; Z87.891 Personal history of nicotine dependence
CPT/HCPCS: 36415; 71046; 80048; 80053; 82948; 83690; 84484; 85025; 85610; 85730; 93005; 93306; 94002; 94003; 96374; 99285; A9270; G0378; J1815; J2270

== ENCOUNTER 2024-01-29 08:49 | Outpatient (CLI) | payer OTHER, SELFPAY ==
[2024-01-29 09:16] LABS: Hematocrit 44.6 % (42.0-52.0); Hemoglobin 15.7 g/dL (14.0-18.0); Mean Corpuscular HGB Conc 35.2 g/dl (32-36); Mean Corpuscular Hemoglobin 30.2 pg (26-34); Mean Corpuscular Volume 85.8 fl (80-100); Platelet Count Result 187 k/mm3 (150-375); Red Cell Distribution Width 12.9 % (11.5-14.5); White Blood Count 6.6 K/mm3 (4.5-10.0)
[2024-01-29 09:28] LABS: Alanine Aminotransferase 54 U/L (6-50); Albumin Level 4.6 g/dL (3.5-5.1); Alkaline Phosphatase 53 U/L (38-126); Anion Gap 12 mmol/L (4-12); Aspartate Amino Transferase 42 U/L (17-59); Bilirubin,Total 2.4 mg/dL (0.2-1.3); Blood Urea Nitrogen 17 mg/dL (9-20); Calcium 9.5 mg/dL (8.4-10.2); Carbon Dioxide 30 mmol/L (22-30); Chloride 100 mmol/L (98-107); Estimated Glomerular Filt Rate > 60; Glucose 161 mg/dL (65-110); Potassium 3.9 mmol/L (3.4-5.0); Sodium 142 mmol/L (137-145)
== END 2024-01-29 08:50 | disposition home or self-care (01) ==
LOC: ANHLAB 08:51
PROVIDERS: Visit Provider Nurse Practitioner
DX: K75.81 Nonalcoholic steatohepatitis (NASH) (principal)
CPT/HCPCS: 36415; 80053; 85027

== ENCOUNTER 2024-05-04 07:53 | Outpatient (CLI) | payer OTHER, SELFPAY ==
--- OUTSIDE RECORDS SUMMARY | 2024-05-04 07:57 | XMS_ITS | Referral Summary ---
Author Organization [facility] Address [address] [place] [address] Phone Care Team Providers Care Biomedical Equipment Technician Name Role Phone Tyson Toney Primary Care Provider [phone] Encounters Date Type Department Care Team Description 04/21/2024 9:00 AM ALIGNMENT MECHANIC Office Visit [facility] Neurology [address] [place] [address] [place] [id number] Medina Hill NP Idiopathic peripheral neuropathy (Primary Dx); New onset of headaches after age 50 from Last 3 Months Allergies Active Allergy Reactions Criticality Noted Date Comments Pregabalin Mental status changes Low 10/26/2020 Depression Medications aspirin 81 mg tablet TAKE 1 TABLET EVERY MORNING FOR HEART HEALTH Active lisinopril (PRINIVIL,ZESTR IL) 40 mg tablet TAKE 1 TABLET EVERY EVENING FOR BP CONTROL 7 Active omeprazole (PriLOSEC) 20 mg capsule TAKE 1 TABLET EVERY EVENING 7 Active simvastatin (ZOCOR) 40 mg tablet TAKE 1 TABLET EVERY EVENING 7 Active loratadine (CLARITIN) 10 mg tabletIndicatio ns:Allergic Rhinitis Take 1 tablet (10 mg total) by mouth every 6 (six) hours as needed 8 Active metFORMIN (GLUCOPHAGE) 1,000 mg tabletIndicatio ns:type 2 diabetes mellitus Take 1 tablet (1,000 mg total) by mouth 2 (two) times a day with meals 8 Active chlorthalidone 25 mg tabletIndicatio ns:hypertension Take 1 tablet (25 mg total) by mouth daily after dinner Active folic acid/multivit-m in/lutein (CENTRUM SILVER ORAL) Take 1 tablet by mouth every morning. Active Jardiance 25 mg tablet 0 Active omega-3 fatty acids (LOVAZA) 1 gram capsule 0 Active Precision Xtra Test strip 1 Active Trulicity 1.5 mg/0.5 mL pen injector 1 Active freestyle 28 gauge lancets 1 Active lancets misc 1 Active bacitracin 500 unit/gram ointment 1 Active escitalopram (LEXAPRO) 10 mg tablet Take 1 tablet (10 mg total) by mouth daily Active ferrous sulfate 325 mg (65 mg of elemental iron) tabletIndicatio ns:Iron Deficiency Anemia Take 1 tablet (325 mg total) by mouth daily with breakfast Active potassium citrate ER (UROCIT-K) 10 mEq (1,080 mg) CR tablet Take 10 mEq by mouth daily Active clindamycin (CLEOCIN) 300 mg capsule TAKE 1 CAPSULE BY MOUTH EVERY 8 HOURS FOR 7 DAYS 3 Active mupirocin (BACTROBAN) 2 % ointment 3 Active potassium chloride ER 10 mEq CR capsule 3 Active rosuvastatin (CRESTOR) 20 mg tablet 3 Active ascorbic acid (vitamin C) 1,000 mg tablet Take 1 tablet (1,000 mg total) by mouth daily Active semaglutide (OZEMPIC) 1 mg/dose (4 mg/3 mL) pen injector injection Inject 0.75 mL (1 mg total) under the skin 4 Active ibuprofen 200 mg tab/cap Take 2 tablet/capsul e (400 mg total) by mouth 3 Active cholecalciferol 25 mcg (1,000 unit) tablet Take 3 tablets (3,000 Units total) by mouth 4 Active traMADoL (ULTRAM) 50 mg tablet Take 2 tablets by mouth 3 times daily. 540 tablet 1 5 Active traMADoL (ULTRAM) 50 mg tablet Take 2 tablets by mouth 3 times daily. 540 tablet 1 4 04/21/19 25 Discontinu ed(Duplica te order) traMADoL (ULTRAM) 50 mg tablet Take 2 tablets (100 mg total) by mouth 4 04/21/19 25 Discontinu ed(Duplica te order) Active Problems Problem Noted Date Diagnosed Date New onset of headaches after age 50 10/08/2021 Neuropathic pain of both legs 10/28/2019 Assessment & Plan (10/28/2019 3:21 PM CDT): Patient continues to receive subjectively good neuropathic analgesia with tramadol 100 mg t.i.d. p.r.n.. There is no tolerability issues with medication. I have renewed his tramadol 100 mg t.i.d. p.r.n. as scheduled, and I will plan on seeing him back on a 1 year or as needed sooner basis. 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 p.r.n. for neuropathic analgesia with better tolerability and moderate symptomatic relief. I have renewed his tramadol of present dosing. He will follow-up in neurology clinic in 6 months for reassessment. Assessment & Plan (10/26/2020 9:29 AM CDT): Patient has history of peripheral neuropathy prior to his established diagnosis of diabetes. He has had lack of success with treatment previously with gabapentin and pregabalin and has been using tramadol but is noticing breakthrough pain and numbness. He is interested in alternative to the tramadol. In lieu of tramadol a placement a trial of duloxetine 30 mg b.i.d.. Potential adverse effects and benefits of therapy have been discussed with patient prior to initiation of treatment. He will follow-up in neurology clinic for reassessment on duloxetine in 6 months. Assessment & Plan (10/28/2019 3:21 PM CDT): Patient presents with history of initially idiopathic (now possibly diabetic) peripheral neuropathy manifested as lower extremity pain and numbness. He continues to enjoy symptomatic relief with tramadol 100 mg t.i.d. p.r.n.. He has no tolerability issues with medication. I have renewed his tramadol 100 mg t.i.d. p.r.n. and will plan on seeing him back on a yearly or sooner as-needed basis. History of bariatric surgery 01/30/2010 Resolved Problems Problem Noted Date Diagnosed Date Resolved Date Neck mass 04/07/2018 04/21/2018 Social History Tobacco Use Types Packs/Day Years Used Date Smoking Tobacco: Former Cigarettes 1 10 9 - 1988 Smokeless Tobacco: Never Comments:Quit in 1988 Alcohol Use Standard Drinks/Week Comments Yes 0 (1 standard drink = 0.6 oz pur e alcohol) once every couple months Sex and Gender Information Value Date Recorded Sex Assigned at Not on file Legal Sex Male 8:00 AM ALIGNMENT MECHANIC Gender Identity Not on file Sexual Orientation Not on file Last Filed Vital Signs Vital Sign Reading Time Taken Comments Blood Pressure 120/64 04/21/2024 8:51 AM ALIGNMENT MECHANIC Pulse 88 04/21/2024 8:51 AM ALIGNMENT MECHANIC Temperature 36.2 ??C (97.1 ??F) 05/02/2022 9:12 AM CS T Respiratory Rate 20 04/21/2024 8:51 AM ALIGNMENT MECHANIC Oxygen Saturation 94% 04/21/2024 8:51 AM ALIGNMENT MECHANIC Inhaled Oxygen Concentration - - Weight 112 kg (247 lb) 04/21/2024 8:51 AM ALIGNMENT MECHANIC Height 177.8 cm (5' 10 ) 04/21/2024 8:51 AM ALIGNMENT MECHANIC Body Mass Index 35.44 04/21/2024 8:51 AM ALIGNMENT MECHANIC Plan of Treatment Not on file Insurance [facility] CLAIMS [facility] * Guarantor: ALICIASUREKHA Rivsa Account Type Relation to Patient Date of Phone Billing Address Personal/Family [address] [facility] [address] [place] [address] [facility] Advance Directives For more information, please contact: [phone] * Full Code (Latest Code Status on File) Date Activated Date Inactivated Comments 04/08/2018 6:34 PM 04/09/2018 11:17 AM Care Teams Biomedical Equipment Technician Relationship Specialty Start Date End Date Tyson Toney DO PCP - General Family Medicine 10/26/20
--- OUTSIDE RECORDS SUMMARY | 2024-05-04 07:57 | XMS_ITS | Referral Summary ---
Author Organization [facility] Address [address] [place] [address] Care Team Providers Care Economic Development Specialist Name Role Phone [address] Primary Care Prov ider Source Comments [facility],non-owned Affiliates and Associated Physician Practices is amultiple site organization consisting of ambulatory clinics and hospital sitesin [place], [place], [place] and [place]. This disclosure is being madepursuant to the Care Everywhere program and may not contain all information available regarding this patient. Last updated 17.[facility] Active Problems Problem Noted Date Diagnosed Date Metabolic dysfunction-associ ated steatotic liver disease (MASLD) 07/29/2023 Overview (07/29/2023): 07/29/23 Fibroscan CAP 318, LSM 14.4 kPa Social History Tobacco Use Types Packs/Day Years Used Date Smoking Tobacco: Never Assessed Sex and Gender Information Value Date Recorded Sex Assigned at Not on file Gender Identity Not on file Sexual Orientation Not on file Plan of Treatment Not on file Care Teams Economic Development Specialist Relationship Specialty Start Date [facility] [address] [facility], [place] [address] PCP - General 03/01/19
--- OUTSIDE RECORDS SUMMARY | 2024-05-04 07:57 | XMS_ITS | Patient Health Summary ---
Author Organization [facility] Address [address] [facility] [place] [address] Care Team Providers Care Measurement Technician Name Role Phone [address] Primary Care Prov ider Note from [facility],non-owned Affiliates and Associated Physician Practices is amultiple site organization consisting of ambulatory clinics and hospital sitesin [place], [place] and [place]. This disclosure is being madepursuant to the Care Everywhere program and may not contain all information available regarding this patient. Last updated 17.[facility] Active Problems Problem Noted Date Diagnosed Date Metabolic dysfunction-associ ated steatotic liver disease (MASLD) 07/29/2023 Social History Tobacco Use Types Packs/Day Years Used Date Smoking Tobacco: Never Assessed Sex and Gender Information Value Date Recorded Sex Assigned at Not on file Gender Identity Not on file Sexual Orientation Not on file Procedures * NC LIVER ELASTOGRAPHY(Performed 07/29/2023) Performed for Abnormal serum lipase level, Fatty liver Results * PROC FIBROSCAN (07/29/2023 8:49 AM CDT) Narrative Octavio Silva MD - 07/29/2023 8:49 AM CDT Octavio Silva MD ? 07/29/2023 10:44 AM Diagnosis: Fatty Liver, Abnormal lipase level ?? RN verified patient is NPO for prior 3 hours. Procedure explained. Date of Exam: 07/29/2023 Liver Stiffness: (LSM, kPa) median: ??14.4 IQR/Median% (ideally < 30%): ??9% CAP (controlled attenuation parameter): ??318 Technical Difficulty: None Ordering Provider: Cristy Garcia APRN Phone Fax Fibroscan interpretation: I have personally reviewed the Fibroscan report and associated tracings. The calculated Liver Stiffness Measurement (LSM, kPa) indicates that: The probability of advanced liver fibrosis is: moderate. The loss of ultrasound signal, (controlled attenuation parameter, CAP [dB/m]), indicates that the probability of hepatic steatosis is: high. Octavio Nath MD The following criteria are used to indicate the probability of advanced (stage 3-4) fibrosis: < 7.0 kPa: low 7.0-8.9 kPa: low to moderate 9.0-14.9 kPa: moderate 15-20 kPa: high > 20 kPa: very high Liver stiffness > 20 kPa is also associated with a high probability of complications of portal hypertension including varices and ascites. Liver stiffness > 50 kPa is associated with a high risk of variceal bleeding. These interpretations are based on the following published data: Bunny COFFEY, Abhishek M, Maribel M, et al. Accuracy of FibroScan controlled attenuation parameter and liver stiffness measurement in assessing steatosis and fibrosis in patients with nonalcoholic fatty liver disease. Gastroenterology 2019;156:8014-1286. Maame MARTEL, Pablito R, Van Natbg MIRANDA, et al. Vibration-controlled transient elastography to assess fibrosis and steatosis in patients with nonalcoholic fatty liver disease. Clin Gastroenterol Hepatol 2019;17:156-163. Note that scores have been developed that incorporate the Fibroscan liver stiffness measurement from large cohorts of patients with liver biopsies to further refine the ability of Fibroscan to identify patients ??with MASH and advanced fibrosis. These include the FAST (Fibroscan-AST) score (Thai, 202) and the Agile3+ and Agile4 scores (Curtis, 202). Thai TA, Van Natta ML, Halima M, Brian A, et al. Validation of the accuracy of the FAST score for detecting patients with at-risk nonalcoholic steatohepatitis (VALENCIA) in a [place] cohort and comparison to other non-invasive algorithms. PLoS ONE (2021) 17: x7282510. Curtis BROWNING, Delma J, Emiliana ARGUETA, et al. Enhanced diagnosis of advanced fibrosis and cirrhosis in individuals with NAFLD using FibroScan-based Agile scores. J Hepatol (2022) 78: 247-259. Fibroscan LSM can also be used with laboratory parameters without formulas to assess prognosis. According to the Baveno-VII criteria (Bartlett, 202), Fibroscan LSM ?15 kPa plus a platelet count of ?299v282/L rules out clinically significant portal hypertension (sensitivity and negative predictive value >90%) in patients with compensated advanced chronic liver disease. Bartlett R, Serafin J, Mya G, Herberth T, Maya Hathaway on behalf of the Baveno VII Faculty. Baveno VII--Renewing consensus in portal hypertension. J Hepatol (2021) 76: 959-974 Assessing the likelihood of advanced fibrosis in patients with intermediate liver stiffness measurement (LSM) by Fibroscan (e.g., 8-15 kPa) can be improved by also calculating the FIB-4 score (Ute et al. Hepatology Communications 2019;3:5700-0148) or NAFLD Fibrosis score (Mack et al. Clinical Gastroenterology and Hepatology 2019;17:8104-9913 using ??routine clinical data. Note: 1. Fibroscan cannot reliably identify earlier stages of fibrosis (ie distinguish F0 from F1 and F2) and thus a histologic stage cannot be predicted from the Fibroscan reading. 2. Liver stiffness can be increased by factors other than fibrosis including passive congestion, infiltrative processes, active alcoholism, recent moderate alcohol consumption in the 2 weeks before the exam, ??biliary obstruction and marked inflammation. The interpretation of the Fibroscan result provided above may not have taken such clinical factors into account. Disease etiology also influences Fibroscan cutoff values for fibrosis stages and the following cutoffs have been proposed (Rodolfo et al, Clin Gastro Hepatol 2015; 13:27-36): Cutoffs for Stage 3 and Stage 4 fibrosis respectively: Hepatitis B: >9 and >11.7 kPa Hepatitis C: >9.5 and >12.5 kPa HCV-HIV: >11 and >14 kPa Cholestatic liver diseases: >10 and >17.9 kPa MASLD/MASH: >10 and >14 kPa CAP estimates of steatosis: normal <200 dB/m mild 200 to 250 dB/m moderate 250-290 dB/m substantial > 290 dB/m (Note that Fibroscan is not a quantitative measure of liver fat.) These criteria are estimates and may change as additional supporting data becomes available. (This additional interpretive data was last updated 08/02/22.) [email or web address] Octavio Silva MD PROCEDURE/ MINOR SURGICAL ORDERABLES Care Teams Measurement Technician Relationship Specialty Start Date End Date [facility], [address] [place] [address] [address] [place] [address] PCP - General 03/01/19
--- OUTSIDE RECORDS SUMMARY | 2024-05-04 07:57 | XMS_ITS | Encounter Summary ---
Author Organization [facility] Address [address] [place] [address] Phone Care Team Providers Care Pattern Worker Name Role Phone Lion Bhardwaj MD Unavailable [phone] Inés Bryan MD Primary Care Provider Meng Husain MD Primary Care Provider [phone] Tyson Toney DO Primary Care Provider [phone] Encounter Details Date Type Department Care Team (Late st Contact Info) Description 04/02/2018 Telephone [facility] - [facility] ENT [address] [facility] Advanced Medicine 11th [place] [address] [place] [address] Stacie Pichardo Social History Tobacco Use Types Packs/Day Years Used Date Smoking Tobacco: Former Smokeless Tobacco: Never Comments:Quit in 1988 Alcohol Use Standard Drinks/Week Comments No 0 (1 standard drink = 0.6 oz pur e alcohol) Sex and Gender Information Value Date Recorded Sex Assigned at Not on file Legal Sex Male 8:00 AM POLICE INVESTIGATOR Gender Identity Not on file Sexual Orientation Not on file documented as of this encounter Plan of Treatment Not on file documented as of this encounter Visit Diagnoses Not on filedocumented in this encounter Care Teams Pattern Worker Relationship Specialty Start Date End Date Inés Bryan MD [address] [place] [address] PCP - General Family Practice 02/26/18 10/27/19 Meng Husain MD [address] [place], [place] [id number] PCP - General Internal Medicine 10/28/19 10/25/20 Tyson Toney DO [address] [place], [place] [id number] PCP - General Family Medicine 10/26/20 Lion Bhardwaj MD Medical Oncologist/Yarn Texturing Machine Operator Hematology and Oncology 02/05/18 10/25/20 documented as of this encounter
--- OUTSIDE RECORDS SUMMARY | 2024-05-04 07:57 | XMS_ITS | Clinical Summary ---
Author Organization [facility] Address [address] [place] [address] Care Team Providers Care Metallic Yarn Slitting Machine Operator Name Role Phone [address] Medical [facility] Primary Care Prov ider Source Comments [facility],non-owned Affiliates and Associated Physician Practices is amultiple site organization consisting of ambulatory clinics and hospital sitesin [place], [place], [place] and [place]. This disclosure is being madepursuant to the Care Everywhere program and may not contain all information available regarding this patient. Last updated 17.[facility] Active Problems Problem Noted Date Diagnosed [...] Orientation Not on file Plan of Treatment Health Maintenance Due Date Last Done Comments COLOGUARD (AGES 45-75) - COL ON CA SCREENING 1960 COLON MONITORING 1960 COLONOSCOPY - COLON CA SCREENING 1960 CT COLONOGRAPHY - COLON CA SCREENING 1960 Colorectal Cancer Screening 1960 FIT - COLON CA SCREENING 1960 FLEX SIG - COLON CA SCREENING 1960 LIPID TESTING 1960 HIV SCREENING 1975 HEPATITIS C SCREENING 03/23/1978 DTAP/TDAP/TD VACCINES (1 - Tdap) 1979 PNEUMOCOCCAL VACCINE 50+ (1 of 1 - PCV) 2010 ZOSTER VACCINE (1 of 2) 2010 COVID-19 VACCINE (4 - 2023-2 5 season) 2023 01/08/2021, 07/12/2020, 06/19/2020 INFLUENZA VACCINE (#1) 2023 , 02/23/2019, 01/06/2018 DEPRESSION SCREENING 03/30/2024 Respiratory Syncytial Virus (RSV) Vaccine Pt: or over 60 yrs (1 - 1-dose 75+ series) 2035 HEPATITIS B VACCINE Aged Out No longe r eligible based on patient's age to complete this topic HIB VACCINE Aged Out No longer eligi ble based on patient's age to complete this topic HPV VACCINE Aged Out No longer eligi ble based on patient's age to complete this topic MENINGOCOCCAL (Group B) VACCINE Aged Out No longer eligible b ased on patient's age to complete this topic MENINGOCOCCAL VACCINE Aged Out No opal tiarra eligible based on patient's age to complete this topic PNEUMOCOCCAL VACCINE Aged Out No long er eligible based on patient's age to complete this topic Care Teams Metallic Yarn Slitting Machine Operator Relationship Specialty Start Date End [facility] [address], [place], [place] [id number] PCP - General 03/01/19
--- OUTSIDE RECORDS SUMMARY | 2024-05-04 07:57 | XMS_ITS | Clinical Summary ---
Author Organization [facility] Address [address] [place] [address] Phone Care Team Providers Care Metal Roofer Name Role Phone Tyson Toney DO Primary Care Provider [phone] Allergies Active Allergy Reactions Criticality Noted Date [...] 02/04/2017 Assessment & Plan (03/25/2021 9:00 AM WELT POCKET MACHINE OPERATOR): Patient had adverse effects with duloxetine and [...] Date Resolved Date Neck mass 04/07/2018 04/21/2018 Encounters Date Type Department Care Team Description 04/21/2024 9:00 AM WELT POCKET MACHINE OPERATOR Office Visit [facility] Neurology [address] [place] [id number] Medina Hill NP Idiopathic peripheral neuropathy (Primary Dx); New onset of headaches after age 50 from Last 3 Months Surgical History Surgery Date Site/Laterality Comments LAPAROSCOPIC GASTRIC BANDING HERNIA REPAIR CHOLECYSTECTOMY Medical History Medical History Date Comments Diabetes mellitus (HCC) Hypertension GERD (gastroesophageal reflux disease) Sinusitis Cellulitis Neuropathy (CMS/HCC) Family History Medical History Relation Name Comments No Known Problems Brother 1 No Known Problems Brother 2 Heart attack Father No Known Problems Mother No Known Problems Sister Relation Name Status Comments Brother 1 Alive Brother 2 Alive Father Mother Alive Sister Alive Social History Tobacco Use Types Packs/Day Years Used Date Smoking Tobacco: Former Cigarettes 1 10 - 1988 Smokeless Tobacco: Never Comments:Quit in 1988 Alcohol Use Standard Drinks/Week Comments Yes 0 (1 standard drink = 0.6 oz pur e alcohol) once every couple months Sex and Gender Information Value Date Recorded Sex Assigned at Not on file Legal Sex Male 8:00 AM WELT POCKET MACHINE OPERATOR Gender Identity Not on file Sexual Orientation Not on file Obstetrics History Last Filed Vital Signs Vital Sign Reading Time Taken Comments Blood Pressure 120/64 04/21/2024 8:51 AM WELT POCKET MACHINE OPERATOR Pulse 88 04/21/2024 8:51 AM WELT POCKET MACHINE OPERATOR Temperature 36.2 ??C (97.1 ??F) 05/02/2022 9:12 AM CS T Respiratory Rate 20 04/21/2024 8:51 AM WELT POCKET MACHINE OPERATOR Oxygen Saturation 94% 04/21/2024 8:51 AM WELT POCKET MACHINE OPERATOR Inhaled Oxygen Concentration - - Weight 112 kg (247 lb) 04/21/2024 8:51 AM WELT POCKET MACHINE OPERATOR Height 177.8 cm (5' 10 ) 04/21/2024 8:51 AM WELT POCKET MACHINE OPERATOR Body Mass Index 35.44 04/21/2024 8:51 AM WELT POCKET MACHINE OPERATOR Plan of Treatment Health Maintenance Due Date Last Done Comments Colon Cancer Screening-Colonoscopy 1960 Depression Screening 1960 Hepatitis C Screening 1960 Prostate Cancer Screening-PSA 1960 Regular Well Visit/Exam 18-64 1978 Covid-19 Vaccine ( season) 2023 01/08/2021, 07/12/2020, 06/19/2020 Influenza Vaccine (#1) 2023 , 01/08/2020, 02/23/2019, Additional history exists DTaP/Tdap/Td Vaccine (3 - Td or Tdap) 08/09/2030 08/09/2020, 06/28/2010, 01/27/1996, Additional history exists Pneumococcal vaccine <65 Aged Out 07/28/2016 No longer eligible based on patient's age to complete this topic Zoster Vaccine Completed 05/17/2019, 01/29, 03/06/2017, Additional history exists Insurance [facility] CLAIMS [facility] * Guarantor: SUREKHA VARGAS Account Type Relation to Patient Date of Phone Billing Address Personal/Family [address] [place] [address] [facility] CLAIMS Advance Directives For more information, please contact: [phone] * Full Code (Latest Code Status on File) Date Activated Date Inactivated Comments 04/08/2018 6:34 PM 04/09/2018 11:17 AM Care Teams Metal Roofer Relationship Specialty Start Date End Date Tyson Toney DO PCP - General Family Medicine 10/26/20
--- OUTSIDE RECORDS SUMMARY | 2024-05-04 07:57 | XMS_ITS | Clinical Summary ---
Author Organization [facility] Address [address] [place] [address] Care Team Providers Care Customer Consultant Name Role Phone Roberto Leo MD Primary Care Provider [phone] Allergies Active Allergy Reactions Criticality Noted Date Comments Pregabalin Other (see comment) Low 10/26/2020 Depression Medications CPAP DME DEVICE CPAP11 CM HS use while [id number], VentrapragadaActive 02/07/20 17 Active vitamin C 500 MG tablet Take 2 tablets (1,000 mg total) by mouth daily. Active aspirin EC 81 MG tablet Take by mouth daily. Active chlorthalidon e 25 MG tablet Take by mouth daily. Active lisinopril 40 MG tablet Take by mouth daily. Active Loratadine 10 MG Cap Take by mouth as needed. Active metFORMIN 1000 MG tablet Take by mouth daily. Active multivitamin tablet Take by mouth daily. Active omeprazole 20 MG capsule Take 1 capsule (20 mg total) by mouth. Active Potassium Gluconate 595 (99 K) MG Tab Take by mouth 2 (two) times a day. Active simvastatin 40 MG tablet Take by mouth daily. Active traMADol 50 MG tablet Take by mouth every 12 (twelve) hours as needed (3 TABLETS EVERY 12 HOURS FOR PAIN PATIENT STATES.). Ac tive TRULICITY 0.75 MG/0.5ML injection 1.5 mg. 01/27/20 20 Active PRECISION XTRA TEST STRIPS test strip 01/27/20 Active empagliflozin (JARDIANCE) 25 MG tablet Take 1 tablet (25 mg total) by mouth daily. Ac tive omega-3 acid (LOVAZA) 1 GM capsule Take 1 capsule (1 g total) by mouth 4 (four) times daily. Activ e Lancets (FREESTYLE) lancets 01/25/20 Active escitalopram (LEXAPRO) 10 MG tablet Take 1 tablet (10 mg total) by mouth daily. Ac tive ferrous sulfate, 65 mg elemental, 325 (65 FE) MG tablet Take by mouth daily. 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 MGUS (monoclonal gammopathy of unknown significa nce) 02/24/2018 Obstructive sleep apnea (adult) (pediatric) 11/2017 CPAP (continuous positive airway pressure) depminerva moore 02/05/2018 Adult BMI 35.0-35.9 kg/sq m 02/05/2018 Mass of left side of neck 02/05/2018 Hypertension 02/04/2017 Idiopathic neuropathy 02/04/2017 Obesity 02/04/2017 History of bariatric surgery 01/30/2010 Immunizations Name Administration Dates Next Due Flucelvax 6 Months+ (Prefilled Syringe) 02/24/20 19,01/06/2018 Fluzone Adult Quad >3 Yrs (S karen Dose Vial) 01/08/2020 PFIZER COVID-19 (ORIGINAL FO RMULATION, PURPLE CAP) mRNA, LNP-S, PF, 30 MCG/0.3 ML DOSE 01/08/2021,07/12/2020,06/19/2020 Shingrix 05/17/2019,02/23/2019 Family History Medical History Relation Comments No Known Problems Brother 1 No Known Problems Brother 2 HEART ATTACK Father 1996 Sleep Apnea Father No Known Problems Sister Relation Status Comments Brother 1 Alive Brother 2 Alive Father Mother Alive Sister Alive Social History Tobacco Use Types Packs/Day Years Used Date Smoking Tobacco: Former Cigarettes 1 7 1 2 - 1988 Smokeless Tobacco: Never Tobacco Cessation:Counseling Given: Yes Comments:QUIT IN 1988 Alcohol Use Standard Drinks/Week Comments Yes 0 (1 standard drink = 0.6 oz pur e alcohol) SOCIALLY AUDIT-C Answer Date Recorded Frequency of Alcohol Consumption Never 02/05/2018 Average Number of Drinks Not on file 018 Frequency of Binge Drinking Not on file 11/2017 PHQ-2 Answer Date Recorded Patient Health Questionnaire-2 Score 0 07/15/2022 Exercise Vital Sign Answer Date Recorde d On average, how many days pe r week do you engage in moderate to strenuous exercise (like a brisk walk)? 3 days 07/19/2020 On average, how many minutes do you engage in exercise at this level? 30 min 07/19/2020 Education Answer Date Recorded What is the highest level of school you have completed or the highest degree you have received? Associate degree: academic program 07/19/2020 Sex and Gender Information Value Date Recorded Sex Assigned at Not on file Legal Sex Male 4:07 PM CDT Gender Identity Not on file Sexual Orientation Not on file Last Filed Vital Signs Vital Sign Reading Time Taken Comments Blood Pressure 114/74 07/17/2023 7:44 AM CDT Pulse 85 07/17/2023 7:44 AM CDT Temperature 36.3 ??C (97.4 ??F) 07/17/2023 7:44 AM CD T Respiratory Rate 16 07/17/2023 7:44 AM CDT Oxygen Saturation 95% 07/17/2023 7:44 AM CDT ra Inhaled Oxygen Concentration - - Weight 110.7 kg (244 lb) 07/17/2023 7:44 AM CDT Height 177.8 cm (5' 10 ) 07/17/2023 7:44 AM CDT Body Mass Index 35.01 07/17/2023 7:44 AM CDT Plan of Treatment Upcoming Encounters Date Type Department Care Team (Late st Contact Info) Description 07/15/2024 7:20 AM CDT Office Visit [facility] - [facility] [address] [place] [id number] Samy Lim DO [address] [place] [address] Health Maintenance Due Date Last Done Comments Colorectal Cancer Screening Colonoscopy (10 Years) 1960 Annual Physical 1963 Hepatitis C 1978 PHQ-2 (Physician [place]) 07/16/2023 07/15/2022 COVID-19 Vaccine ( season) 2023 01/08/2021, 07/12/2020, 06/19/2020 Influenza Adult (#1) 2023 01/08/2021, 01/08/2020, 02/23/2019, Additional history exists PHQ-2 (Physician [place]) 03/30/2024 07/15/2022 DTaP, Tdap and Td Vaccines (3 - Td or Tdap) 08/09/2030 08/09/2020, 06/28/2010, 01/27/1996, Additional history exists RSV Immunization or 60+ Years (1 - 1-dose 75+ series) 2035 Pneumococcal Vaccine: Pediatrics (0 to 5 Years) and At-Risk Patients (6 to 64 Years) Aged Out 07/28/2016 No longer eligible based on patient's age to complete this topic Zoster Vaccines Completed 05/17/2019, 01/29, 10/05/2015 Meningococcal B Vaccine Aged Out No l onger eligible based on patient's age to complete this topic Meningococcal Vaccine Aged Out No opal tiarra eligible based on patient's age to complete this topic RSV Immunizations Under 20 Months Aged Out No longer eligible based on patient's age to complete this topic Insurance Care Teams Customer Consultant Relationship Specialty Start Date End Date Roberto Leo MD [address] [place] [address] PCP - General INTERNAL MEDICINE 02/17/20
[2024-05-04 08:57] LABS: Hemoglobin 15.2 g/dL (14.0-18.0); Mean Corpuscular HGB Conc 34.5 g/dl (32-36); Mean Corpuscular Hemoglobin 29.9 pg (26-34); Mean Corpuscular Volume 86.6 fl (80-100); Mean Platelet Volume 10.3 fl (7.4-10.4); Platelet Count Result 196 k/mm3 (150-375); Red Blood Count 5.08 M/mm3 (4.6-6.20); Red Cell Distribution Width 13.2 % (11.5-14.5); White Blood Count 6.9 K/mm3 (4.5-10.0)
[2024-05-04 09:11] LABS: Alanine Aminotransferase 64 U/L (6-50); Albumin Level 4.3 g/dL (3.5-5.1); Alkaline Phosphatase 55 U/L (38-126); Anion Gap 12 mmol/L (4-12); Aspartate Amino Transferase 37 U/L (17-59); Bilirubin,Total 2.4 mg/dL (0.2-1.3); Blood Urea Nitrogen 15 mg/dL (9-20); Calcium 9.8 mg/dL (8.4-10.2); Carbon Dioxide 31 mmol/L (22-30); Chloride 96 mmol/L (98-107); Estimated Glomerular Filt Rate > 60; Glucose 176 mg/dL (65-110); Potassium 3.2 mmol/L (3.4-5.0); Sodium 139 mmol/L (137-145)
[2024-05-06 16:55] LABS: Bilirubin Indirect 1.9 mg/dL (0-1.1)
== END 2024-05-04 07:54 | disposition home or self-care (01) ==
LOC: ANHLAB 07:55
PROVIDERS: Visit Provider Nurse Practitioner Family
DX: K75.81 Nonalcoholic steatohepatitis (NASH) (principal)
CPT/HCPCS: 36415; 80053; 82248; 85027

== ENCOUNTER 2024-08-24 07:50 | Outpatient (CLI) | payer OTHER, SELFPAY ==
--- OUTSIDE RECORDS SUMMARY | 2024-08-24 07:54 | XMS_ITS | Referral Summary ---
Author Organization [facility] Address [address] [place] [address] Phone Care Team Providers Care Locomotive Driver Name Role Phone Tyson Toney Primary Care Provider [phone] Allergies Active Allergy Reactions Criticality Noted Date [...] Active ibuprofen 200 mg tab/cap Take 2 tablet/capsule (400 mg total) by mouth 3 Active cholecalciferol 25 mcg (1,000 unit) tablet Take 3 tablets (3,000 Units total) by mouth 4 Active traMADoL (ULTRAM) 50 mg tablet Take 2 tablets by mouth 3 times daily. 540 tablet 1 5 Active Active Problems Problem Noted Date Diagnosed [...] nce) 02/24/2018 CPAP (continuous positive airway pressure) mark moore 02/05/2018 Hypertension 02/04/2017 Idiopathic peripheral neuropathy 02/04/2017 Assessment & Plan (03/25/2021 9:00 AM REGIONAL BUSINESS MANAGER): Patient had adverse effects with duloxetine and [...] Date Smoking Tobacco: Former Cigarettes 1 10 1 979 - 1988 Smokeless Tobacco: Never Comments:Quit in 1988 Alcohol Use Standard Drinks/Week Comments Yes 0 (1 standard drink = 0.6 oz pur e alcohol) once every couple months Sex and Gender Information Value Date Recorded Sex Assigned at Not on file Legal Sex Male 8:00 AM REGIONAL BUSINESS MANAGER Gender Identity Not on file Sexual Orientation Not on file Last Filed Vital Signs Vital Sign Reading Time Taken Comments Blood Pressure 120/64 04/21/2024 8:51 AM REGIONAL BUSINESS MANAGER Pulse 88 04/21/2024 8:51 AM REGIONAL BUSINESS MANAGER Temperature 36.2 C (97.1 F) 05/02/2022 9:12 AM REGIONAL BUSINESS MANAGER Respiratory Rate 20 04/21/2024 8:51 AM REGIONAL BUSINESS MANAGER Oxygen Saturation 94% 04/21/2024 8:51 AM REGIONAL BUSINESS MANAGER Inhaled Oxygen Concentration - - Weight 112 kg (247 lb) 04/21/2024 8:51 AM REGIONAL BUSINESS MANAGER Height 177.8 cm (5' 10) 04/21/2024 8:51 AM REGIONAL BUSINESS MANAGER Body Mass Index 35.44 04/21/2024 8:51 AM REGIONAL BUSINESS MANAGER Plan of Treatment Not on file Insurance [facility] CLAIMS [facility] * Guarantor: SUREKHA VARGAS Account Type Relation to Patient Date of Phone Billing Address Personal/Family [address] [place] [address] [facility] CLAIMS Advance Directives For more information, please contact: [phone] * Full Code (Latest Code Status on File) Date Activated Date Inactivated Comments 04/08/2018 6:34 PM 04/09/2018 11:17 AM Care Teams Locomotive Driver Relationship Specialty Start Date End Date Tyson Toney DO PCP - General Family Medicine 10/26/20
--- OUTSIDE RECORDS SUMMARY | 2024-08-24 07:54 | XMS_ITS | Clinical Summary ---
Author Organization [facility] Address [address] [place] [address] Phone Care Team Providers Care Cold Type Composing Machine Operator Name Role Phone Tyson Toney DO Primary Care Provider [phone] Allergies Active Allergy Reactions Criticality Noted Date [...] 02/04/2017 Assessment & Plan (03/25/2021 9:00 AM MEDICAL LIBRARY ASSISTANT): Patient had adverse effects with duloxetine and [...] Date Resolved Date Neck mass 04/07/2018 04/21/2018 Surgical History Surgery Date Site/Laterality Comments LAPAROSCOPIC GASTRIC BANDING HERNIA REPAIR CHOLECYSTECTOMY Medical History Medical History Date Comments Diabetes mellitus (HCC) Hypertension GERD (gastroesophageal reflux disease) Sinusitis Cellulitis Neuropathy Family History Medical History Relation Name Comments [...] on file Legal Sex Male 8:00 AM MEDICAL LIBRARY ASSISTANT Gender Identity Not on file Sexual Orientation Not on file Obstetrics History Last Filed Vital Signs Vital Sign Reading Time Taken Comments Blood Pressure 120/64 04/21/2024 8:51 AM MEDICAL LIBRARY ASSISTANT Pulse 88 04/21/2024 8:51 AM MEDICAL LIBRARY ASSISTANT Temperature 36.2 C (97.1 F) 05/02/2022 9:12 AM MEDICAL LIBRARY ASSISTANT Respiratory Rate 20 04/21/2024 8:51 AM MEDICAL LIBRARY ASSISTANT Oxygen Saturation 94% 04/21/2024 8:51 AM MEDICAL LIBRARY ASSISTANT Inhaled Oxygen Concentration - - Weight 112 kg (247 lb) 04/21/2024 8:51 AM MEDICAL LIBRARY ASSISTANT Height 177.8 cm (5' 10) 04/21/2024 8:51 AM MEDICAL LIBRARY ASSISTANT Body Mass Index 35.44 04/21/2024 8:51 AM MEDICAL LIBRARY ASSISTANT Plan of Treatment Health Maintenance Due Date Last Done Comments Colon Cancer Screening-Colonoscopy 1960 Depression Screening 1960 Hepatitis C Screening 1960 Prostate Cancer Screening-PSA 1960 Regular Well Visit/Exam 18-64 1978 Covid-19 Vaccine ( season) 2023 01/08/2021, 07/12/2020, 06/19/2020 Influenza Vaccine (Season Ended) 2024 01/08/2021, 01/08/2020, 02/23/2019, Additional history exists DTaP/Tdap/Td Vaccine (3 - Td or Tdap) 08/09/2030 08/09/2020, 06/28/2010, 01/27/1996, Additional history exists Pneumococcal vaccine <65 Aged Out 07/28/2016 No longer eligible based on patient's age to complete this topic Hepatitis B Screening Completed 08/29/2016, 017 Zoster Vaccine Completed 05/17/2019, 01/29, 03/06/2017, Additional history exists Insurance [facility] * Guarantor: SUREKHA VARGAS Account Type Relation to Patient Date of Phone Billing Address Personal/Family [address] [place] [place] [address] [facility] CLAIMS Advance Directives For more information, please contact: [phone] * Full Code (Latest Code Status on File) Date Activated Date Inactivated Comments 04/08/2018 6:34 PM 04/09/2018 11:17 AM Care Teams Cold Type Composing Machine Operator Relationship Specialty Start Date End Date Tyson Toney DO PCP - General Family Medicine 10/26/20
--- OUTSIDE RECORDS SUMMARY | 2024-08-24 07:54 | XMS_ITS | Clinical Summary ---
Author Organization [facility] Address [address] [place] [address] Care Team Providers Care Trucking Contractor Name Role Phone [address] Primary Care Prov ider Source Comments [facility],non-owned Affiliates and Associated Physician Practices is amultiple site organization consisting of ambulatory clinics and hospital sitesin [place], [place], [place] and [place]. This disclosure is being madepursuant to the Care Everywhere program and may not contain all information available regarding this patient. Last updated 17.[facility] Active Problems Problem Noted Date Diagnosed Date Metabolic dysfunction-associ ated steatotic liver disease (MASLD) 07/29/2023 Overview (07/29/2023): 07/29/23 Fibroscan CAP 318, LSM 14.4 kPa Social History Tobacco Use Types Packs/Day Years Used Date Smoking Tobacco: Never Assessed Sex and Gender Information Value Date Recorded Sex Assigned at Not on file Legal Sex Male 7:40 PM LAP MACHINE TENDER Gender Identity Not on file Sexual Orientation [...] 2023-2 5 season) 2023 01/08/2021, 07/12/2020, 06/19/2020 DEPRESSION SCREENING 03/30/2024 INFLUENZA VACCINE (Season Ended) 2024 01/08/2020, 02/23/2019, 01/06/2018 Respiratory Syncytial Virus (RSV) Vaccine Pt: or [...] complete this topic MENINGOCOCCAL (Group B) VACCINE SHARED DECISION-MAKING Aged Out No longer eligible based on patient's age to complete this topic MENINGOCOCCAL GROUPS A/C/Y/W VACCINE Aged Out No longer eligible b ased on patient's age to complete this topic Insurance [facility] [place] [address] [facility] Address: [facility] CLAIMS [address] [place] [address] * Guarantor: GOVIND VARGAS Account Type Relation to Patient Date of Phone Billing Address Personal/[place] [address] [address] SELF PAY NO INSURANCE Member Subscriber Plan / Payer (Ef fective for All Dates) Name:Govind Vargas Member ID:Not on file Relation to Subscriber:Not on file Name:GOVIND VARGAS Subscriber ID:Not on file Address: [facility] [place] [address] Payer ID:Not on file Group ID:Not on file Type:Self Pay Address: [place], [place] * Guarantor: GOVIND VARGAS Account Type Relation to Patient Date of Phone Billing Address Personal/[place] [address] SELF PAY NO INSURANCE Member Subscriber Plan / Payer (Ef fective for All Dates) Name:Govind Vargas Member ID:Not on file Relation to Subscriber:Not on file Name:GOVIND VARGAS Subscriber ID:Not on file Address: [address] [place] [address] Payer ID:Not on file Group ID:Not on file Type:Self Pay Address: [place], [place] * Guarantor: GOVIND VARGAS Account Type Relation to Patient Date of Phone Billing Address Personal/Family [address] [place] [address] SELF PAY NO INSURANCE Member Subscriber Plan / Payer (Ef fective for All Dates) Name:Govind Vargas Member ID:Not on file Relation to Subscriber:Not on file Name:GOVIND VARGAS Subscriber ID:Not on file Address: [facility] [place] [address] Payer ID:Not on file Group ID:Not on file Type:Self Pay Address: [place], [place] Care Teams Trucking Contractor Relationship Specialty Start Date End [facility] [address] [facility], [place] [address] PCP - General 03/01/19
--- OUTSIDE RECORDS SUMMARY | 2024-08-24 07:54 | XMS_ITS | Encounter Summary ---
Author Organization [facility] Address [address] [place] [address] Phone Care Team Providers Care It Engineer Name Role Phone Lion Bhardwaj MD Unavailable Inés Bryan MD Primary Care Provider Meng Husain MD Primary Care Provider [phone] Tyson Toney DO Primary Care Provider [phone] Encounter Details Date Type Department Care Team (Late st Contact Info) Description 04/02/2018 Telephone [facility] ([facility]) - [facility] ENT [address] [facility] Advanced Medicine [address] [place] [address] [place] [address] Stacie Pichardo Social History Tobacco Use Types Packs/Day Years Used Date Smoking Tobacco: Former Smokeless Tobacco: Never Comments:Quit in 1988 Alcohol Use Standard Drinks/Week Comments No 0 (1 standard drink = 0.6 oz pur e alcohol) Sex and Gender Information Value Date Recorded Sex Assigned at Not on file Legal Sex Male 8:00 AM HEALTH INFORMATICS ADVISOR Gender Identity Not on file Sexual Orientation Not on file documented as of this encounter Plan of Treatment Not on file documented as of this encounter Visit Diagnoses Not on filedocumented in this encounter Care Teams It Engineer Relationship Specialty Start Date End Date Inés Bryan MD [address] [place] [address] PCP - General Family Practice 02/26/18 10/27/19 Meng Husain MD [address] [place], [place] [id number] PCP - General Internal Medicine 10/28/19 10/25/20 Tyson Toney DO [address] [place], [place] [id number] PCP - General Family Medicine 10/26/20 Lion Bhardwaj MD Medical Oncologist/Admission Specialist Hematology and Oncology 02/05/18 10/25/20 documented as of this encounter
[2024-08-24 08:50] LABS: Alanine Aminotransferase 89 U/L (6-50); Albumin Level 4.8 g/dL (3.5-5.1); Alkaline Phosphatase 47 U/L (38-126); Anion Gap 10 mmol/L (4-12); Aspartate Amino Transferase 51 U/L (17-59); Blood Urea Nitrogen 17 mg/dL (9-20); Calcium 9.8 mg/dL (8.4-10.2); Carbon Dioxide 33 mmol/L (22-30); Chloride 99 mmol/L (98-107); Estimated Glomerular Filt Rate > 60; Glucose 171 mg/dL (65-110); Potassium 3.8 mmol/L (3.4-5.0); Sodium 142 mmol/L (137-145)
== END 2024-08-24 07:51 | disposition home or self-care (01) ==
LOC: ANHLAB 07:52
PROVIDERS: Visit Provider Internal Medicine Gastroenterology
DX: K75.81 Nonalcoholic steatohepatitis (NASH) (principal); R74.8 Abnormal levels of other serum enzymes
CPT/HCPCS: 36415; 80053